=== PATIENT | male | born 1955 | race Caucasian/White ===

== ENCOUNTER 2018-04-06 18:52 | Inpatient (IN) | payer MEDICARE, OTHER ==
[2018-04-06] MEDS: Vancomycin HCl 500 MG in Sodium Chloride 0.9% 100 ML IVPB SCH (22:01)
[2018-04-06] MEDS: Vancomycin HCl 750 MG in Sodium Chloride 0.9% 250 ML 250 ML IVPB SCH (22:01)
[2018-04-07 05:24] LABS: #Basophils 0.1 thou/uL (0.0-0.2); #Eosinphils 0.2 thou/uL (0.0-0.7); #Lymphocytes 2.2 thou/uL (1.20-3.40); #Monocytes 0.5 thou/uL (0.11-0.59); %Eosinophils 2.1 % (0.0-10.0); %Lymphocytes 27.8 % (21.0-51.0); %Monocytes 6.1 % (0.0-10.0); %Neutrophils 62.9 % (42.0-75.0); Hemoglobin 9.2 g/dL (14.0-18.0); Mean Corpuscular HGB CONC 30.5 g/dL (32.0-36.0); Mean Corpuscular Hemoglobin 25.5 pg (27.0-31.0); Mean Corpuscular Volume 83.6 fL (78.0-98.0); Mean Platelet Volume 5.7 fL (7.4-10.4); Platelet Count 251 thou/uL (130-400); White Blood Cell (WBC) Count 7.9 thou/uL (4.8-10.8)
[2018-04-07 05:24] LABS: Bilirubin Negative (Negative); Blood, Urine Negative (Negative); Clarity Clear (Clear); Glucose, Urine (Dipstick) Negative (Negative); Leukocyte Negative (Negative); Nitrite Negative (Negative); Protein, Urine (Dipstick) Negative (Neg-Trace); Urobilinogen 0.2 mg/dL (0.2-1.0)
[2018-04-07 05:39] LABS: ALT (SGPT) 6 U/L (8-55); AST (SGOT) 14 U/L (5-34); Albumin 3.1 g/dL (3.4-4.8); Alkaline Phosphatase 57 U/L (40-150); Anion Gap 13 mmol/L (10-20); BUN (Urea Nitrogen) 6 mg/dL (8.4-25.7); Bilirubin, Total 0.2 mg/dL (0.2-1.2); Calc. Creatinine Clearance 181 mL/min (70-130); Calcium 9.2 mg/dL (7.8-10.44); Carbon Dioxide 25 mmol/L (23-31); Chloride 106 mmol/L (98-107); Estimated GFR-MDRD Greater than 90; Globulin 3.5 g/dL (2.4-3.5); Glucose 99 mg/dL (80-115); Potassium 3.6 mmol/L (3.5-5.1); Protein, Total 6.6 g/dL (5.8-8.1); Sodium 140 mmol/L (136-145)
[2018-04-07] MEDS ORDERED: Levothyroxine Sodium 100 MCG TAB ONE (05:41)
[2018-04-07] MEDS: Levothyroxine Sodium 100 MCG TAB PO SCH (05:45)
[2018-04-07] MEDS ORDERED: SITAGLIPTIN PHOSPHATE 25 MG PO SCH (09:00)
[2018-04-07] MEDS ORDERED: Non-Formulary Item 1 EACH (Ranitidine Hcl [Ranitidine Hcl] 150 MG) PO SCH (09:00)
[2018-04-07] MEDS ORDERED: Alogliptin 6.25 MG TAB PO ONE (09:11)
[2018-04-07] MEDS ORDERED: Finasteride 5 MG TAB ONE (09:12)
[2018-04-07] MEDS ORDERED: Famotidine 20 MG TAB ONE (09:12)
[2018-04-07] MEDS ORDERED: Docusate 100 MG CAP ONE (09:12)
[2018-04-07] MEDS ORDERED: Fish Oil 1,000 MG CAP ONE (09:13)
[2018-04-07] MEDS ORDERED: Folic Acid 1 MG TAB ONE (09:13)
[2018-04-07] MEDS ORDERED: Lantus 1000 UNITS/10 ML VIAL ONE (09:14)
[2018-04-07] MEDS ORDERED: Gabapentin 300 MG CAP ONE (09:14)
[2018-04-07] MEDS ORDERED: metroNIDAZOLE 500 MG TAB ONE (09:15)
[2018-04-07] MEDS ORDERED: Potassium Chloride 20 MEQ TAB ONE (09:16)
[2018-04-07] MEDS ORDERED: Sodium Chloride 0.9% 10 ML ONE ×2 (09:17)
[2018-04-07] MEDS ORDERED: Valproate Sodium 250 mg/5 ml UD Cup ONE (09:18)
[2018-04-07] MEDS: Valproate Sodium 250 mg/5 ml UD Cup PO SCH ×2 (09:22→21:35)
[2018-04-07] MEDS: Lantus 1000 UNITS/10 ML VIAL SC SCH (09:31)
[2018-04-07 09:32] LABS: Vancomycin, Trough 18.7 ug/mL
[2018-04-07] MEDS: Fish Oil 1,000 MG CAP PO SCH ×2 (09:32→21:34)
[2018-04-07] MEDS: Gabapentin 300 MG CAP PO SCH ×3 (09:32→21:35)
[2018-04-07] MEDS: metroNIDAZOLE 500 MG TAB PO SCH ×3 (09:32→21:35)
[2018-04-07] MEDS: Docusate 100 MG CAP PO SCH (09:32)
[2018-04-07] MEDS: Folic Acid 1 MG TAB PO SCH (09:32)
[2018-04-07] MEDS: Famotidine 20 MG TAB PO SCH (09:32)
[2018-04-07] MEDS: Alogliptin 6.25 MG TAB PO SCH (09:32)
[2018-04-07] MEDS: Finasteride 5 MG TAB PO SCH (09:32)
[2018-04-07] MEDS: Potassium Chloride 10 MEQ TAB PO SCH ×2 (09:36→21:35)
--- NOTE | 2018-04-07 10:30 | PRG ---
DATE OF SERVICE: 04/07/2018 SUBJECTIVE: The patient feels well, up in the bed, eating well. Alert, responsive to questions, alt jackie very difficult to understand his answers. Denies any pain or shortness of breath. OBJECTIVE: VITAL SIGNS: Shows blood pressure is 135/95, temperature is 98, and pulse 85. LUNGS: Clear. CARDIAC: Showed regular rhythm. ABDOMEN: Soft, nontender. GENITOURINARY: Scrotum is red, not indurated. EXTREMITIES: Left ischial decubitus is covered as his left heel injury. ASSESSMENT: 1. 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 2. Diabetes, controlled to goal. 3. Hypertension, controlled to goal. 4. Seizure disorder, stable. 5. Cognitive deficit, stable. 6. Urinary tract infection with E. coli sepsis and bacteremia with Cortes catheter still in place and we will discuss a change or removal of the Cortes with urologist, Dr. Lyons next week.
[2018-04-07] MEDS: Vancomycin HCl 750 MG in Sodium Chloride 0.9% 250 ML 250 ML IVPB SCH ×2 (10:56→21:33)
[2018-04-07] MEDS: Vancomycin HCl 500 MG in Sodium Chloride 0.9% 100 ML IVPB SCH ×2 (10:57→21:34)
--- NOTE | 2018-04-07 14:17 | HP ---
DATE OF ADMISSION: 04/06/2018 HISTORY OF PRESENT ILLNESS: The patient is an unfortunate 62-year-old white male living in [facility] for an unknown period of time secondary to cognitive deficits with difficulty moving his legs and with his speech, but apparently recognition of commands, who has been admitted to [facility] several times in the last year, once for pneumonia, most recently and earlier this month for an episode of urinary tract infection with sepsis with Escherichia coli and bacteremia. However, he was found at that time also to have stage IV decubitus left sacrum which was found to be positive on bon e scan for osteomyelitis of the left atrium and subsequently required debridement. He has been start ed on vancomycin, Rocephin and Flagyl for broad spectrum coverage. There is no culture was done of t he bone and are treating for possible MRSA as well as E. coli that is in the blood and anaerobes. He is doing very well with no nausea and vomiting, fever, chills, shortness of breath, confusion or kimberly st pain. The patient, as mentioned above, is unable to verbalize very well, but appears to be alert. ALLERGIES: He is allergic to METFORMIN. MEDICATIONS: Rocephin 2 grams IV daily, vancomycin 1.25 grams IV twice daily and Flagyl 500 mg 3 danny es daily all until 05/04, he is also on finasteride 5 mg daily, folic acid 1 mg daily, Neurontin 300 three times daily, Lantus 20 units daily, Synthroid 100 mcg daily, Klor-Con 20 mEq twice daily, Crest or 10 mg daily, tamsulosin 0.8 mg nightly, famotidine 20 mg daily, Docusate 100 mg daily. PAST MEDICAL HISTORY: Obtained from the old chart and shows that he has a history of above-mentioned hypertension, diabetes, cognitive deficits with possible mental retardation. FAMILY HISTORY: Unavailable. SOCIAL HISTORY: [facility], an unknown period of time. He is a nonsmoker, nondrinker. REVIEW OF SYSTEMS: Essentially noncontributory as the patient is unable to give appropriate answers. PHYSICAL EXAMINATION: GENERAL: Patient is a middle-aged white male lying in bed in no acute distress, oriented to person o nly. VITAL SIGNS: Blood pressure 135/95, temperature is 98, pulse 85, respirations 20, O2 sats 95% on keesha m air. HEENT: Pupils show the left eye is opacified. Right eye appears to be within normal limits. Sclera e are anicteric, Conjunctivae pale. Oral mucous membranes well hydrated. NECK: Supple. There are no nodes or masses. LUNGS: Clear. CARDIAC: Regular rhythm. No gallops or murmurs. ABDOMEN: Soft, nontender with no masses or organomegaly. SKIN/EXTREMITIES: Show left ischial decubitus left heel injury. The ischial decubitus had wound VAC in place. GENITOURINARY: Shows red, swollen scrotum with no induration or tenderness. Cortes catheter in place . NEUROLOGIC: The patient is unable to move his legs at all. Has minimal spastic movement in his hand s and has no sensation to pinprick below the waist. LABORATORY AND X-RAY FINDINGS: Shows a white count 7900, hematocrit 30, hemoglobin 9.2. Sodium 140, potassium 3.6, chloride 106, bicarbonate 25, BUN 6, creatinine 0.5, calcium 9.2, total bilirubin 0.2 , AST 14, ALT 6, albumin 3.1, globulin 3.5. ASSESSMENT AND PLAN: 1. 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 2. Sacral and left ischial decubitus stage 4 with osteomyelitis on IV Rocephin and vancomycin and or al Flagyl until 05/04 with vancomycin levels to be monitored by pharmacy. 3. History of recent Escherichia coli urinary tract infection with Cortes catheter still in place, m ost likely due to need to keep a decubitus clean, but will discuss with Dr. Lyons keep catheter in p page this time. Change out weekly if needed. 4. Type 2 diabetes, controlled to goal. We will continue Accu-Cheks and home insulin. 5. Seizure disorder. No evidence of recurrence on gabapentin. 6. Possible benign prostatic hypertrophy, on finasteride and tamsulosin. We will discuss with Dr. Hi tuttle. 7. Hypothyroidism, stable. PLAN: 1. Continue the above-mentioned vancomycin, Flagyl, and Rocephin until 05/04. 2. Continue wound care with wound VAC. 3. I discussed Cortes catheter drainage with Dr. Eloy and replace as needed or discontinue if possi ble. 4. Continue nutritional support and skin care support with deep tissue injury of left heel be monito red with pressure reduction. 5. Diabetes, controlled to goal. Continue with Accu-Chek and Homans'.
[2018-04-07] MEDS ORDERED: cefTRIAXone\\ROCEPHIN 2 GM VIAL IVPB SCH (15:00)
[2018-04-07] MEDS: cefTRIAXone\\ROCEPHIN 2 GM in Sodium Chloride 0.9% 100 ML IVPB SCH (15:11)
[2018-04-07] MEDS: Rosuvastatin 10 MG TAB PO SCH (21:35)
[2018-04-07] MEDS: Tamsulosin HCl 0.4 MG CAP PO SCH (21:35)
[2018-04-08] MEDS: Levothyroxine Sodium 100 MCG TAB PO SCH (06:49)
[2018-04-08] MEDS: Finasteride 5 MG TAB PO SCH (09:23)
[2018-04-08] MEDS: Alogliptin 6.25 MG TAB PO SCH (09:23)
[2018-04-08] MEDS: Gabapentin 300 MG CAP PO SCH ×3 (09:23→20:45)
[2018-04-08] MEDS: Famotidine 20 MG TAB PO SCH (09:23)
[2018-04-08] MEDS: metroNIDAZOLE 500 MG TAB PO SCH ×3 (09:23→20:45)
[2018-04-08] MEDS: Valproate Sodium 250 mg/5 ml UD Cup PO SCH ×2 (09:23→20:44)
[2018-04-08] MEDS: Potassium Chloride 10 MEQ TAB PO SCH ×2 (09:23→20:44)
[2018-04-08] MEDS: Docusate 100 MG CAP PO SCH (09:23)
[2018-04-08] MEDS: Folic Acid 1 MG TAB PO SCH (09:23)
[2018-04-08] MEDS: Fish Oil 1,000 MG CAP PO SCH ×2 (09:23→20:42)
[2018-04-08] MEDS: Vancomycin HCl 750 MG in Sodium Chloride 0.9% 250 ML 250 ML IVPB SCH ×2 (09:24→21:00)
[2018-04-08] MEDS: Lantus 1000 UNITS/10 ML VIAL SC SCH (09:24)
[2018-04-08] MEDS: Vancomycin HCl 500 MG in Sodium Chloride 0.9% 100 ML IVPB SCH ×2 (09:24→21:00)
[2018-04-08] MEDS: cefTRIAXone\\ROCEPHIN 2 GM in Sodium Chloride 0.9% 100 ML IVPB SCH (15:14)
[2018-04-08] MEDS: Rosuvastatin 10 MG TAB PO SCH (20:45)
[2018-04-08] MEDS: Tamsulosin HCl 0.4 MG CAP PO SCH (20:45)
[2018-04-09] MEDS: Levothyroxine Sodium 100 MCG TAB PO SCH (06:25)
--- NOTE | 2018-04-09 08:51 | PRG ---
DATE OF SERVICE: 04/08/2018 SUBJECTIVE: The patient is in the bed, no complaints, eating well, responding to nursing care. OBJECTIVE: Wound VAC has been placed is functioning. VITAL SIGNS: Temperature is 98.5, pulse 89, respirations 22, O2 sats 96% on room air, blood pressure 129/72. Vancomycin trough level is 18.7. ABDOMEN: Soft, nontender. LUNGS: Lungs are clear. CARDIAC: Shows regular rhythm. SKIN AND EXTREMITIES: Show trace edema. : Cortes catheter is in place. ASSESSMENT: 1. Stage IV left ischial decubitus with osteomyelitis with wound VAC in place on vancomycin, Rocephi n and Flagyl until 05/04/2018. 2. History of Escherichia coli urinary tract infection. Cortes catheter in place and will discuss we ekly change with Dr. Lyons. 3. Type 2 diabetes, controlled to goal. 4. Seizure disorder with no recurrence on gabapentin. 5. Hypothyroidism, stable. PLAN: 1. Continue vancomycin, Flagyl, and Rocephin with vancomycin levels to be titrated by Pharmacy until 05/04/2018. Continue wound care, wound VAC to be followed by physical therapy. 2. Continue Cortes catheter and replace as needed and discuss difficulty replacement with Dr. Lyons. 3. Deep tissue injury of heels with some wound protection. 4. Diabetes, controlled to goal.
[2018-04-09] MEDS: Fish Oil 1,000 MG CAP PO SCH ×2 (08:54→21:50)
[2018-04-09] MEDS: Docusate 100 MG CAP PO SCH (08:55)
[2018-04-09] MEDS: metroNIDAZOLE 500 MG TAB PO SCH ×3 (08:55→21:51)
[2018-04-09] MEDS: Valproate Sodium 250 mg/5 ml UD Cup PO SCH ×2 (08:55→21:50)
[2018-04-09] MEDS: Gabapentin 300 MG CAP PO SCH ×3 (08:56→21:50)
[2018-04-09] MEDS: Potassium Chloride 10 MEQ TAB PO SCH ×2 (08:57→21:50)
--- NOTE | 2018-04-09 08:57 | PRG ---
DATE OF SERVICE: 04/09/2018 SUBJECTIVE: The patient feels well, but is slightly less responsive today, more lethargic, but did e at breakfast. OBJECTIVE: VITAL SIGNS: Vital signs show him to have a blood pressure of 122/76, temperature 98, pulse 89, resp irations 20, O2 sats 97% on room air. LUNGS: Lungs are clear. CARDIAC: Shows regular rhythm. ABDOMEN: Soft, nontender. SKIN AND EXTREMITIES: Showed trace edema. : Cortes catheter in place. ASSESSMENT: 1. Osteomyelitis of the left ischium on vancomycin, Flagyl and Rocephin until 05/04/2018. 2. Type 2 diabetes, controlled to goal. 3. Hypertension, controlled to goal. 4. Cognitive deficits and paraplegia of unknown etiology. After discussion with sister, still unsur e, stable. PLAN: 1. Continue wound care followed by physical therapy. 2. Continue IV antibiotics with vancomycin trough monitoring by Pharmacy. 3. Continue Accu-Cheks to monitor and titrate and control diabetes.
[2018-04-09] MEDS: Finasteride 5 MG TAB PO SCH (09:00)
[2018-04-09] MEDS: Alogliptin 6.25 MG TAB PO SCH (09:00)
[2018-04-09] MEDS: Folic Acid 1 MG TAB PO SCH (09:01)
[2018-04-09] MEDS: Famotidine 20 MG TAB PO SCH (09:01)
[2018-04-09] MEDS: Lantus 1000 UNITS/10 ML VIAL SC SCH (09:13)
[2018-04-09] MEDS: Vancomycin HCl 500 MG in Sodium Chloride 0.9% 100 ML IVPB SCH ×2 (10:50→21:52)
[2018-04-09] MEDS: Vancomycin HCl 750 MG in Sodium Chloride 0.9% 250 ML 250 ML IVPB SCH ×2 (10:53→21:51)
[2018-04-09] MEDS: cefTRIAXone\\ROCEPHIN 2 GM in Sodium Chloride 0.9% 100 ML IVPB SCH (15:39)
[2018-04-09] MEDS: Rosuvastatin 10 MG TAB PO SCH (21:50)
[2018-04-09] MEDS: Tamsulosin HCl 0.4 MG CAP PO SCH (21:51)
[2018-04-10] MEDS: Levothyroxine Sodium 100 MCG TAB PO SCH (05:17)
[2018-04-10] MEDS: Fish Oil 1,000 MG CAP PO SCH ×2 (08:56→21:36)
[2018-04-10] MEDS: Docusate 100 MG CAP PO SCH (08:57)
[2018-04-10] MEDS: Famotidine 20 MG TAB PO SCH (08:57)
[2018-04-10] MEDS: Folic Acid 1 MG TAB PO SCH (08:57)
[2018-04-10] MEDS: Gabapentin 300 MG CAP PO SCH ×3 (08:57→21:36)
[2018-04-10] MEDS: Finasteride 5 MG TAB PO SCH (08:57)
[2018-04-10] MEDS: Valproate Sodium 250 mg/5 ml UD Cup PO SCH ×2 (08:57→21:34)
[2018-04-10] MEDS: Alogliptin 6.25 MG TAB PO SCH (08:58)
[2018-04-10] MEDS: metroNIDAZOLE 500 MG TAB PO SCH ×3 (08:58→21:36)
[2018-04-10] MEDS: Potassium Chloride 10 MEQ TAB PO SCH ×2 (08:58→21:36)
[2018-04-10] MEDS: Lantus 1000 UNITS/10 ML VIAL SC SCH (08:59)
[2018-04-10 09:33] LABS: Vancomycin, Trough 17.3 ug/mL
[2018-04-10] MEDS: Vancomycin HCl 500 MG in Sodium Chloride 0.9% 100 ML IVPB SCH ×2 (09:59→21:33)
[2018-04-10] MEDS: Vancomycin HCl 750 MG in Sodium Chloride 0.9% 250 ML 250 ML IVPB SCH ×2 (10:00→21:33)
[2018-04-10] MEDS: cefTRIAXone\\ROCEPHIN 2 GM in Sodium Chloride 0.9% 100 ML IVPB SCH (14:53)
[2018-04-10] MEDS: Rosuvastatin 10 MG TAB PO SCH (21:36)
[2018-04-10] MEDS: Tamsulosin HCl 0.4 MG CAP PO SCH (21:36)
[2018-04-11] MEDS: Levothyroxine Sodium 100 MCG TAB PO SCH (05:31)
[2018-04-11] MEDS: Vancomycin HCl 500 MG in Sodium Chloride 0.9% 100 ML IVPB SCH ×2 (09:19→20:52)
[2018-04-11] MEDS: Vancomycin HCl 750 MG in Sodium Chloride 0.9% 250 ML 250 ML IVPB SCH ×2 (09:19→20:54)
[2018-04-11] MEDS: Finasteride 5 MG TAB PO SCH (09:22)
[2018-04-11] MEDS: Gabapentin 300 MG CAP PO SCH ×3 (09:22→20:49)
[2018-04-11] MEDS: Valproate Sodium 250 mg/5 ml UD Cup PO SCH ×2 (09:22→20:51)
[2018-04-11] MEDS: Alogliptin 6.25 MG TAB PO SCH (09:22)
[2018-04-11] MEDS: Potassium Chloride 10 MEQ TAB PO SCH ×2 (09:22→20:49)
[2018-04-11] MEDS: Docusate 100 MG CAP PO SCH (09:22)
[2018-04-11] MEDS: Fish Oil 1,000 MG CAP PO SCH ×2 (09:22→20:49)
[2018-04-11] MEDS: Famotidine 20 MG TAB PO SCH (09:22)
[2018-04-11] MEDS: metroNIDAZOLE 500 MG TAB PO SCH ×3 (09:22→20:49)
[2018-04-11] MEDS: Folic Acid 1 MG TAB PO SCH (09:23)
[2018-04-11] MEDS: Lantus 1000 UNITS/10 ML VIAL SC SCH (09:23)
--- NOTE | 2018-04-11 10:06 | PRG ---
DATE OF SERVICE: 04/10/2018 SUBJECTIVE: The patient feels well, lying in the bed, awake and alert, no complaints, but obviously the patient has some mental disability and cognitive deficits and functions at the level of an infant . PHYSICAL EXAMINATION: VITAL SIGNS: Vital signs showed a temperature of 98.1, pulse 82, respirations 18, O2 sat is 99% on r oom air, blood pressure 119.7. LUNGS: Lungs are clear. CARDIAC: Cardiac examination showed regular rhythm. : Cortes catheter is in place and appears to be somewhat of the urethra erosion, but recent urologi lior consult was not concerned so we will continue catheter in place. Wound VAC is in place, functioning well. Most recent vancomycin trough 17.3. Accu-Cheks are stable at 104-153. ASSESSMENT: 1. Resolving stage IV decubitus with osteomyelitis of left ischium on IV vancomycin, Rocephin and or al Flagyl 2. Type 2 diabetes, insulin controlled. 3. Mental disability and cognitive deficits, stable. 4. Recurrent urinary tract infection and incontinence with Cortes catheter in place, being changed ev agus week in order to decrease infection as a possibility, but maintain integrity of wound VAC. PLAN: CBC, comp metabolic sed rate, CRP in the a.m.
[2018-04-11 11:00] LABS: ALT (SGPT) 6 U/L (8-55); AST (SGOT) 14 U/L (5-34); Albumin 3.3 g/dL (3.4-4.8); Alkaline Phosphatase 60 U/L (40-150); Anion Gap 13 mmol/L (10-20); BUN (Urea Nitrogen) 7 mg/dL (8.4-25.7); Bilirubin, Total 0.2 mg/dL (0.2-1.2); CRP (Inflammatory) 0.86 mg/dL (= or < 0.5); Calc. Creatinine Clearance 151 mL/min (70-130); Calcium 9.2 mg/dL (7.8-10.44); Carbon Dioxide 24 mmol/L (23-31); Chloride 102 mmol/L (98-107); Estimated GFR-MDRD Greater than 90; Globulin 3.4 g/dL (2.4-3.5); Glucose 216 mg/dL (80-115); Potassium 3.8 mmol/L (3.5-5.1); Protein, Total 6.7 g/dL (5.8-8.1); Sodium 135 mmol/L (136-145)
[2018-04-11 11:33] LABS: #Basophils 0.1 thou/uL (0.0-0.2); #Eosinphils 0.2 thou/uL (0.0-0.7); #Lymphocytes 2.3 thou/uL (1.20-3.40); #Monocytes 0.5 thou/uL (0.11-0.59); #Neutrophils 4.6 thou/uL (1.40-6.50); %Basophils 1.2 % (0.0-1.0); %Eosinophils 2.3 % (0.0-10.0); %Lymphocytes 29.8 % (21.0-51.0); %Neutrophils 59.7 % (42.0-75.0); Hemoglobin 9.8 g/dL (14.0-18.0); Mean Corpuscular HGB CONC 31.2 g/dL (32.0-36.0); Mean Corpuscular Hemoglobin 26.1 pg (27.0-31.0); Mean Corpuscular Volume 83.5 fL (78.0-98.0); Mean Platelet Volume 5.8 fL (7.4-10.4); Platelet Count 243 thou/uL (130-400); Red Blood Cell (RBC) Count 3.77 mill/uL (4.70-6.10); White Blood Cell (WBC) Count 7.8 thou/uL (4.8-10.8)
[2018-04-11] MEDS: cefTRIAXone\\ROCEPHIN 2 GM in Sodium Chloride 0.9% 100 ML IVPB SCH (15:32)
[2018-04-11] MEDS: Rosuvastatin 10 MG TAB PO SCH (20:49)
[2018-04-11] MEDS: Tamsulosin HCl 0.4 MG CAP PO SCH (20:50)
[2018-04-12] MEDS: Levothyroxine Sodium 100 MCG TAB PO SCH (06:10)
--- NOTE | 2018-04-12 06:11 | PRG ---
DATE OF SERVICE: 04/11/2018 SUBJECTIVE: The patient feels the same. Awake, alert, in no distress, but only minimally responsive to questions appropriately, although does respond. OBJECTIVE: VITAL SIGNS: Show temperature 98, pulse 86, respirations 18, O2 sats 92% on room air, blood pressure 137/77. GENITOURINARY: Wound VAC in place, functioning well. Cortes catheter in place, functioning well. Ur ological consult from Dr. Lyons from previous admission evaluated and found that the patient appears to be stable. No evidence of erosion at that time and at this time shows no significant irritation. LABORATORY DATA: Sodium 135, potassium 3.8, chloride 102, bicarbonate 24, BUN 7, creatinine 0.6. Ac cu-Cheks 130-162, ALT 6, AST 14. C-reactive protein slightly elevated at 0.86. Sed rate; however, s ignificantly elevated at 113. White count 7800, hematocrit 31, hemoglobin 9.8. ASSESSMENT: 1. Resolving osteomyelitis of left ischium with wound VAC in place on IV vancomycin, Rocephin and Fl agyl. 2. Severe cognitive deficits, unknown etiology, but with no acute change or distress. 3. No evidence of urinary retention, but with incontinence requiring Cortes catheter to maintain inte grity of wound VAC with no evidence of recurrent infection. 4. Type 2 diabetes, controlled to goal. PLAN: 1. Continue IV vancomycin, Rocephin, and oral Flagyl. 2. Continue Accu-Cheks to monitor and titrate and control diabetes. 3. Continue perineal care. 4. Continue to monitor nutrition closely. 5. Continue wound VAC and care of decubitus with physical therapy.
[2018-04-12] MEDS: Vancomycin HCl 750 MG in Sodium Chloride 0.9% 250 ML 250 ML IVPB SCH ×2 (09:38→21:24)
[2018-04-12] MEDS: Vancomycin HCl 500 MG in Sodium Chloride 0.9% 100 ML IVPB SCH ×2 (09:38→21:24)
[2018-04-12] MEDS: Lantus 1000 UNITS/10 ML VIAL SC SCH (09:39)
[2018-04-12] MEDS: Valproate Sodium 250 mg/5 ml UD Cup PO SCH ×2 (09:39→21:25)
[2018-04-12] MEDS: Potassium Chloride 10 MEQ TAB PO SCH ×2 (09:40→21:25)
[2018-04-12] MEDS: Docusate 100 MG CAP PO SCH (09:40)
[2018-04-12] MEDS: metroNIDAZOLE 500 MG TAB PO SCH ×3 (09:40→21:25)
[2018-04-12] MEDS: Folic Acid 1 MG TAB PO SCH (09:40)
[2018-04-12] MEDS: Alogliptin 6.25 MG TAB PO SCH (09:40)
[2018-04-12] MEDS: Famotidine 20 MG TAB PO SCH (09:40)
[2018-04-12] MEDS: Finasteride 5 MG TAB PO SCH (09:40)
[2018-04-12] MEDS: Gabapentin 300 MG CAP PO SCH ×4 (09:40→22:11)
[2018-04-12] MEDS: Fish Oil 1,000 MG CAP PO SCH ×2 (09:40→21:25)
[2018-04-12] MEDS ORDERED: Sodium Chloride 0.9% 250 ML 250 ML ONE (09:50)
[2018-04-12] MEDS: cefTRIAXone\\ROCEPHIN 2 GM in Sodium Chloride 0.9% 100 ML IVPB SCH (14:06)
[2018-04-12] MEDS: Tamsulosin HCl 0.4 MG CAP PO SCH (21:25)
[2018-04-12] MEDS: Rosuvastatin 10 MG TAB PO SCH (21:26)
[2018-04-13] MEDS: Levothyroxine Sodium 100 MCG TAB PO SCH (06:01)
[2018-04-13] MEDS: Vancomycin HCl 500 MG in Sodium Chloride 0.9% 100 ML IVPB SCH ×2 (09:22→22:40)
[2018-04-13] MEDS: Vancomycin HCl 750 MG in Sodium Chloride 0.9% 250 ML 250 ML IVPB SCH ×2 (09:22→22:40)
[2018-04-13] MEDS: Lantus 1000 UNITS/10 ML VIAL SC SCH (09:22)
[2018-04-13] MEDS: Potassium Chloride 10 MEQ TAB PO SCH ×2 (09:23→22:39)
[2018-04-13] MEDS: Alogliptin 6.25 MG TAB PO SCH ×2 (09:23→09:50)
[2018-04-13] MEDS: Gabapentin 300 MG CAP PO SCH ×3 (09:23→22:40)
[2018-04-13] MEDS: Folic Acid 1 MG TAB PO SCH (09:23)
[2018-04-13] MEDS: Valproate Sodium 250 mg/5 ml UD Cup PO SCH ×2 (09:23→22:39)
[2018-04-13] MEDS: Finasteride 5 MG TAB PO SCH (09:23)
[2018-04-13] MEDS: Fish Oil 1,000 MG CAP PO SCH ×2 (09:23→22:40)
[2018-04-13] MEDS: metroNIDAZOLE 500 MG TAB PO SCH ×3 (09:23→22:39)
[2018-04-13] MEDS: Famotidine 20 MG TAB PO SCH (09:23)
[2018-04-13] MEDS: Docusate 100 MG CAP PO SCH (09:23)
--- NOTE | 2018-04-13 09:51 | PRG ---
DATE OF SERVICE: 04/13/2018 SUBJECTIVE: The patient feels well, lying in bed in no distress, no complaints. Eating well. No na usea and vomiting, fever or chills. OBJECTIVE: VITAL SIGNS: Temperature is 98, pulse 90, respirations 20, O2 sats 94%, blood pressure 138/84. LUNGS: Clear. CARDIAC: Examination showed regular rhythm. ABDOMEN: Soft and nontender. SKIN AND EXTREMITIES: Shows wound VAC on left ischium functioning well. The patient is having some diarrhea. ASSESSMENT: 1. Resolving stage IV decubitus, osteomyelitis of left ischium on wound VAC and IV vancomycin and Ro cephin with most recent vancomycin level therapeutic at 17.3 being followed by pharmacy. 2. Type 2 diabetes with slight elevation in the afternoon on Lantus and on Januvia. 3. Cognitive deficits and mental disability, unknown etiology, appears to be stable, alert, eating, in no distress. 4. Chronic Cortes catheterization in order to maintain integrity a wound VAC. PLAN: 1. Continue IV vancomycin, Rocephin, and oral Flagyl until 05/04/2018. 2. Continue to monitor vancomycin levels per pharmacy. 3. Continue Cortes catheterization. Monitor for signs of recurrent infections. He did have urosepsi s on admission to [facility]. 4. Continue to monitor cognitive deficits, but appears to be eating well and cooperating well with t herapy.
--- NOTE | 2018-04-13 10:12 | PRG ---
DATE OF SERVICE: 04/13/2018 SUBJECTIVE: The patient is an unfortunate 62-year-old white male with history of cognitive deficits and mental disability, living in [facility] who has developed stage IV decubitus of the left isch ium as well as osteomyelitis. He is now on IV vancomycin, Rocephin and oral Flagyl until 05/04 with a wound VAC treatment of the decubitus. He is tolerating it well with no complaints. He is eating w ell. He is having no nausea and vomiting. He is still having occasional loose stools, but is on sto ol softener and has had a negative evaluation for Clostridium difficile. OBJECTIVE: GENERAL: His Accu-Cheks are still running slightly elevated in the afternoon up to 240 in the aftern oon, but fairly close to normal at 139-146 in the morning on Lantus. He is on Levemir and Januvia. VITAL SIGNS: Show blood pressure of 164/88, temperature 98, pulse 85, respirations 20, O2 sats 96% o n room air. LUNGS: Clear. CARDIAC: Shows regular rhythm. No gallops or murmurs. ABDOMEN: Soft and nontender. No masses or organomegaly. SKIN AND EXTREMITIES: Display wound VAC in place on the left hip. GENITOURINARY: Cortes catheter in place. ASSESSMENT AND PLAN: 1. Resolving stage IV decubitus and osteomyelitis on IV vancomycin, Rocephin and Flagyl until 05/04. 2. Stable nutrition, eating well. 3. No evidence of retention, but requiring Cortes catheter because of ability to maintain integrity o f wound VAC. 4. Type 2 diabetes with only fair control, but recently increased Januvia to 25 mg. We will continu e Levemir and monitor closely. 5. Soft stools, negative C. diff. We will start on probiotic.
[2018-04-13] MEDS: cefTRIAXone\\ROCEPHIN 2 GM in Sodium Chloride 0.9% 100 ML IVPB SCH (14:53)
[2018-04-13] MEDS: Rosuvastatin 10 MG TAB PO SCH (22:39)
[2018-04-13] MEDS: Tamsulosin HCl 0.4 MG CAP PO SCH (22:39)
[2018-04-14] MEDS: Levothyroxine Sodium 100 MCG TAB PO SCH (05:30)
[2018-04-14] MEDS ORDERED: Saccharomyces boulardii 250 MG CAP PO SCH (09:00)
[2018-04-14] MEDS: Alogliptin 6.25 MG TAB PO SCH (09:08)
[2018-04-14] MEDS: Saccharomyces boulardii 250 MG CAP PO SCH (09:08)
[2018-04-14] MEDS: Valproate Sodium 250 mg/5 ml UD Cup PO SCH ×2 (09:08→21:42)
[2018-04-14] MEDS: Fish Oil 1,000 MG CAP PO SCH ×2 (09:08→21:43)
[2018-04-14] MEDS: metroNIDAZOLE 500 MG TAB PO SCH ×3 (09:08→21:44)
[2018-04-14] MEDS: Potassium Chloride 10 MEQ TAB PO SCH ×2 (09:08→21:43)
[2018-04-14] MEDS: Finasteride 5 MG TAB PO SCH (09:08)
[2018-04-14] MEDS: Folic Acid 1 MG TAB PO SCH (09:09)
[2018-04-14] MEDS: Gabapentin 300 MG CAP PO SCH ×3 (09:09→21:43)
[2018-04-14] MEDS: Famotidine 20 MG TAB PO SCH (09:09)
[2018-04-14 09:20] LABS: Vancomycin, Trough 17.7 ug/mL
[2018-04-14] MEDS: Lantus 1000 UNITS/10 ML VIAL SC SCH (09:27)
[2018-04-14] MEDS: Vancomycin HCl 500 MG in Sodium Chloride 0.9% 100 ML IVPB SCH ×2 (09:28→21:42)
[2018-04-14] MEDS: Vancomycin HCl 750 MG in Sodium Chloride 0.9% 250 ML 250 ML IVPB SCH ×2 (09:28→21:43)
[2018-04-14] MEDS: cefTRIAXone\\ROCEPHIN 2 GM in Sodium Chloride 0.9% 100 ML IVPB SCH (14:50)
[2018-04-14] MEDS: Rosuvastatin 10 MG TAB PO SCH (21:43)
[2018-04-14] MEDS: Tamsulosin HCl 0.4 MG CAP PO SCH (21:44)
[2018-04-15] MEDS: Levothyroxine Sodium 100 MCG TAB PO SCH (06:26)
[2018-04-15] MEDS: Valproate Sodium 250 mg/5 ml UD Cup PO SCH ×2 (08:23→21:19)
[2018-04-15] MEDS: Alogliptin 6.25 MG TAB PO SCH (08:23)
[2018-04-15] MEDS: Potassium Chloride 10 MEQ TAB PO SCH ×2 (08:23→21:18)
[2018-04-15] MEDS: metroNIDAZOLE 500 MG TAB PO SCH ×3 (08:23→21:18)
[2018-04-15] MEDS: Famotidine 20 MG TAB PO SCH (08:24)
[2018-04-15] MEDS: Saccharomyces boulardii 250 MG CAP PO SCH (08:24)
[2018-04-15] MEDS: Gabapentin 300 MG CAP PO SCH ×3 (08:24→21:18)
[2018-04-15] MEDS: Folic Acid 1 MG TAB PO SCH (08:24)
[2018-04-15] MEDS: Fish Oil 1,000 MG CAP PO SCH ×2 (08:24→21:18)
[2018-04-15] MEDS: Finasteride 5 MG TAB PO SCH (08:24)
[2018-04-15] MEDS: Lantus 1000 UNITS/10 ML VIAL SC SCH (08:39)
[2018-04-15] MEDS: Vancomycin HCl 750 MG in Sodium Chloride 0.9% 250 ML 250 ML IVPB SCH ×2 (09:28→21:16)
[2018-04-15] MEDS: Vancomycin HCl 500 MG in Sodium Chloride 0.9% 100 ML IVPB SCH ×2 (09:29→21:15)
[2018-04-15] MEDS: cefTRIAXone\\ROCEPHIN 2 GM in Sodium Chloride 0.9% 100 ML IVPB SCH (14:55)
--- NOTE | 2018-04-15 16:38 | PRG ---
DATE OF SERVICE: 04/15/2018. SUBJECTIVE: The patient lying in bed, resting well with no complaints. Has cognitive deficits, but appears to be in no distress, eating well. OBJECTIVE: Blood pressure is 134/87, temperature 98, pulse 87, respirations 18, O2 sat 93% on room a ir. LUNGS: Clear. CARDIAC: Shows regular rhythm. ABDOMEN: Soft and nontender. PELVIC: Wound VAC is in place on the left ischium. LABORATORIES: Show Accu-Cheks range from 130-180. ASSESSMENT: 1. Resolving left ischial osteomyelitis, stage IV decubitus with wound VAC on vancomycin, Rocephin, and oral Flagyl until 05/04/2018. 2. Stable cognitive deficits long-term with no difficulty swallowing. 3. No evidence of urinary retention, but incontinence requiring Cortes catheter to maintain integrity of wound VAC. 4. Type 2 diabetes, controlled (02:00). 5. Stable nutrition. PLAN: 1. Continue IV vancomycin, Rocephin, and oral Flagyl until 05/04/2018. 2. Continue to monitor nutrition. 3. Continue Cortes catheter to maintain integrity of wound VAC. 4. Continue wound VAC followed by physical therapy. 5. Continue Januvia 25 mg daily and Levemir for control of diabetes.
[2018-04-15] MEDS: Tamsulosin HCl 0.4 MG CAP PO SCH (21:18)
[2018-04-15] MEDS: Rosuvastatin 10 MG TAB PO SCH (21:19)
[2018-04-16] MEDS: Levothyroxine Sodium 100 MCG TAB PO SCH (05:34)
[2018-04-16] MEDS: Vancomycin HCl 750 MG in Sodium Chloride 0.9% 250 ML 250 ML IVPB SCH ×2 (09:51→21:09)
[2018-04-16] MEDS: metroNIDAZOLE 500 MG TAB PO SCH ×3 (09:52→21:08)
[2018-04-16] MEDS: Valproate Sodium 250 mg/5 ml UD Cup PO SCH ×2 (09:52→21:07)
[2018-04-16] MEDS: Saccharomyces boulardii 250 MG CAP PO SCH (09:52)
[2018-04-16] MEDS: Alogliptin 6.25 MG TAB PO SCH (09:52)
[2018-04-16] MEDS: Vancomycin HCl 500 MG in Sodium Chloride 0.9% 100 ML IVPB SCH ×2 (09:52→21:08)
[2018-04-16] MEDS: Potassium Chloride 10 MEQ TAB PO SCH (09:52)
[2018-04-16] MEDS: Folic Acid 1 MG TAB PO SCH (09:53)
[2018-04-16] MEDS: Famotidine 20 MG TAB PO SCH (09:53)
[2018-04-16] MEDS: Gabapentin 300 MG CAP PO SCH ×3 (09:53→21:07)
[2018-04-16] MEDS: Fish Oil 1,000 MG CAP PO SCH ×2 (09:53→21:08)
[2018-04-16] MEDS: Finasteride 5 MG TAB PO SCH (09:53)
[2018-04-16] MEDS: Lantus 1000 UNITS/10 ML VIAL SC SCH (09:53)
[2018-04-16] MEDS: cefTRIAXone\\ROCEPHIN 2 GM in Sodium Chloride 0.9% 100 ML IVPB SCH (14:53)
[2018-04-16] MEDS ORDERED: Lantus 1000 UNITS/10 ML VIAL SC SCH (17:04)
[2018-04-16] MEDS: Potassium Chloride 20 MEQ TAB PO SCH (17:15)
--- NOTE | 2018-04-16 17:45 | PRG ---
DATE OF SERVICE: 04/16/2018 SUBJECTIVE: The patient lying in the bed, resting. No complaints, has been eating well. No nausea and vomiting. Denies any pain, shortness of breath. LABORATORY DATA: Shows Accu-Cheks range from 123 in the morning up to 211, 223 in the afternoon on 2 0 units of Lantus in the morning. OBJECTIVE: VITAL SIGNS: Show blood pressure of 130/86, temperature 98, pulse 100, respirations 20, O2 sats 95% on room air. LUNGS: Clear. CARDIAC: Shows regular rhythm. ABDOMEN: Soft and nontender. Wound VAC is in place. ASSESSMENT: 1. Resolving left facial ischial osteomyelitis, stage IV decubitus. 2. Type 2 diabetes with only fair control and will increase Lantus to 22 units every morning. 3. Hypothyroidism, stable. 4. Cognitive deficits and mental retardation, stable. PLAN: 1. Continue IV Ancef, vancomycin and oral Flagyl until 05/04. Continue wound VAC. 2. Increase Lantus 22 units every morning. 3. Continue tamsulosin for BPH and Cortes care to prevent contamination of wound VAC.
[2018-04-16] MEDS: Rosuvastatin 10 MG TAB PO SCH (21:07)
[2018-04-16] MEDS: Tamsulosin HCl 0.4 MG CAP PO SCH (21:08)
[2018-04-17] MEDS: Levothyroxine Sodium 100 MCG TAB PO SCH (05:21)
[2018-04-17] MEDS: Potassium Chloride 20 MEQ TAB PO SCH ×2 (08:55→17:03)
[2018-04-17] MEDS: Gabapentin 300 MG CAP PO SCH ×3 (09:02→20:56)
[2018-04-17] MEDS: metroNIDAZOLE 500 MG TAB PO SCH ×3 (09:02→20:56)
[2018-04-17] MEDS: Valproate Sodium 250 mg/5 ml UD Cup PO SCH ×2 (09:02→20:56)
[2018-04-17] MEDS: Folic Acid 1 MG TAB PO SCH (09:02)
[2018-04-17] MEDS: Alogliptin 25 MG TAB PO SCH (09:02)
[2018-04-17] MEDS: Finasteride 5 MG TAB PO SCH (09:02)
[2018-04-17] MEDS: Famotidine 20 MG TAB PO SCH (09:02)
[2018-04-17] MEDS: Saccharomyces boulardii 250 MG CAP PO SCH (09:02)
[2018-04-17] MEDS: Fish Oil 1,000 MG CAP PO SCH ×2 (09:02→20:56)
[2018-04-17] MEDS: Vancomycin HCl 500 MG in Sodium Chloride 0.9% 100 ML IVPB SCH ×2 (09:03→21:10)
[2018-04-17] MEDS: Vancomycin HCl 750 MG in Sodium Chloride 0.9% 250 ML 250 ML IVPB SCH ×2 (09:03→21:10)
[2018-04-17] MEDS: cefTRIAXone\\ROCEPHIN 2 GM in Sodium Chloride 0.9% 100 ML IVPB SCH (15:22)
[2018-04-17 19:06] LABS: Bilirubin Negative (Negative); Blood, Urine Trace (Negative); Glucose, Urine (Dipstick) 250 mg/dL (Negative); Leukocyte Negative (Negative); Nitrite Negative (Negative); Protein, Urine (Dipstick) 30 mg/dL (Neg-Trace); Urobilinogen 0.2 mg/dL (0.2-1.0)
[2018-04-17 19:12] LABS: Clarity SL HAZY (Clear)
[2018-04-17 19:14] LABS: RBC/HPF 0-3 HPF (0-3); Squamous Epithelial 0-3 HPF (0-3); Yeast-All Forms 2+ HPF (None Seen)
[2018-04-17] MEDS: Tamsulosin HCl 0.4 MG CAP PO SCH (20:56)
[2018-04-17] MEDS: Rosuvastatin 10 MG TAB PO SCH (20:56)
[2018-04-18 05:13] LABS: #Basophils 0.1 thou/uL (0.0-0.2); #Eosinphils 0.2 thou/uL (0.0-0.7); #Lymphocytes 3.3 thou/uL (1.20-3.40); #Monocytes 0.8 thou/uL (0.11-0.59); #Neutrophils 3.1 thou/uL (1.40-6.50); %Lymphocytes 44.5 % (21.0-51.0); %Monocytes 10.2 % (0.0-10.0); %Neutrophils 41.3 % (42.0-75.0); Hemoglobin 11.9 g/dL (14.0-18.0); Mean Corpuscular Hemoglobin 25.8 pg (27.0-31.0); Mean Corpuscular Volume 83.1 fL (78.0-98.0); Mean Platelet Volume 6.4 fL (7.4-10.4); Platelet Count 234 thou/uL (130-400); RBC Distribution Width 15.9 % (11.5-14.5); White Blood Cell (WBC) Count 7.4 thou/uL (4.8-10.8)
[2018-04-18 05:33] LABS: ALT (SGPT) 7 U/L (8-55); AST (SGOT) 19 U/L (5-34); Albumin 3.6 g/dL (3.4-4.8); Alkaline Phosphatase 69 U/L (40-150); Anion Gap 15 mmol/L (10-20); BUN (Urea Nitrogen) 8 mg/dL (8.4-25.7); Bilirubin, Total 0.3 mg/dL (0.2-1.2); Calc. Creatinine Clearance 148 mL/min (70-130); Calcium 9.7 mg/dL (7.8-10.44); Carbon Dioxide 23 mmol/L (23-31); Chloride 100 mmol/L (98-107); Estimated GFR-MDRD Greater than 90; Globulin 3.7 g/dL (2.4-3.5); Glucose 151 mg/dL (80-115); Potassium 3.9 mmol/L (3.5-5.1); Protein, Total 7.3 g/dL (5.8-8.1); Sodium 134 mmol/L (136-145)
[2018-04-18] MEDS: Levothyroxine Sodium 100 MCG TAB PO SCH (06:07)
[2018-04-18] MEDS: metroNIDAZOLE 500 MG TAB PO SCH ×3 (08:26→21:30)
[2018-04-18] MEDS: Potassium Chloride 20 MEQ TAB PO SCH ×2 (08:26→17:30)
[2018-04-18] MEDS: Famotidine 20 MG TAB PO SCH (08:26)
[2018-04-18] MEDS: Gabapentin 300 MG CAP PO SCH ×3 (08:26→21:30)
[2018-04-18] MEDS: Alogliptin 25 MG TAB PO SCH (08:26)
[2018-04-18] MEDS: Saccharomyces boulardii 250 MG CAP PO SCH (08:26)
[2018-04-18] MEDS: Fish Oil 1,000 MG CAP PO SCH ×2 (08:26→21:29)
[2018-04-18] MEDS: Finasteride 5 MG TAB PO SCH (08:27)
[2018-04-18] MEDS: Folic Acid 1 MG TAB PO SCH (08:27)
[2018-04-18] MEDS: Valproate Sodium 250 mg/5 ml UD Cup PO SCH ×2 (08:27→21:29)
[2018-04-18] MEDS: Lantus 1000 UNITS/10 ML VIAL SC SCH (08:28)
[2018-04-18] MEDS: Vancomycin HCl 500 MG in Sodium Chloride 0.9% 100 ML IVPB SCH ×2 (09:55→21:23)
[2018-04-18] MEDS: Vancomycin HCl 750 MG in Sodium Chloride 0.9% 250 ML 250 ML IVPB SCH ×2 (09:55→21:23)
--- NOTE | 2018-04-18 10:43 | PRG ---
DATE OF SERVICE: 04/17/2018 SUBJECTIVE: The patient feels well. He is alert, awake, and cheerful, but not eating well today. No nausea, vomiting, cough, or shortness of breath. OBJECTIVE: VITAL SIGNS: Shows blood pressure is 185/97, temperature is 96, pulse 111, respirations 20, O2 saturations 96% on room air. LUNGS: Clear. CARDIAC: Regular rhythm. ABDOMEN: Soft and nontender. SKIN AND EXTREMITIES: Show no edema, clubbing, or cyanosis. Wound VAC is in place. LABORATORY DATA: Accu-Cheks are still elevated greater than 200 today despite increasing insulin and poor appetite. ASSESSMENT: 1. Type 2 diabetes with worsening, controlled, slight poor eating possibly due to sign of infection. 2. Osteomyelitis of left ischium with wound VAC, on IV Rocephin and vancomycin and oral Flagyl with labs to be done today. 3. Mental deficiency and cognitive deficits from mental retardation. PLAN: CBC, comprehensive metabolic panel, sed rate, CRP, and urinalysis. Increase insulin to 24 units subcu q.a.m. and continue to monitor Accu-Cheks closely. Job ID: [id number]
[2018-04-18] MEDS: cefTRIAXone\\ROCEPHIN 2 GM in Sodium Chloride 0.9% 100 ML IVPB SCH (15:03)
[2018-04-18] MEDS: Tamsulosin HCl 0.4 MG CAP PO SCH (21:29)
[2018-04-18] MEDS: Rosuvastatin 10 MG TAB PO SCH (21:30)
[2018-04-19 06:04] LABS: #Basophils 0.1 thou/uL (0.0-0.2); #Eosinphils 0.3 thou/uL (0.0-0.7); #Lymphocytes 2.9 thou/uL (1.20-3.40); #Monocytes 0.7 thou/uL (0.11-0.59); #Neutrophils 3.6 thou/uL (1.40-6.50); %Basophils 0.7 % (0.0-1.0); %Eosinophils 3.7 % (0.0-10.0); %Lymphocytes 38.1 % (21.0-51.0); %Monocytes 9.6 % (0.0-10.0); Hemoglobin 11.5 g/dL (14.0-18.0); Mean Corpuscular HGB CONC 30.9 g/dL (32.0-36.0); Mean Corpuscular Hemoglobin 25.4 pg (27.0-31.0); Mean Platelet Volume 6.3 fL (7.4-10.4); Platelet Count 254 thou/uL (130-400); RBC Distribution Width 15.7 % (11.5-14.5); Red Blood Cell (RBC) Count 4.54 mill/uL (4.70-6.10); White Blood Cell (WBC) Count 7.6 thou/uL (4.8-10.8)
[2018-04-19] MEDS: Levothyroxine Sodium 100 MCG TAB PO SCH (06:23)
[2018-04-19] MEDS: metroNIDAZOLE 500 MG TAB PO SCH ×3 (08:18→20:51)
[2018-04-19] MEDS: Famotidine 20 MG TAB PO SCH (08:18)
[2018-04-19] MEDS: Valproate Sodium 250 mg/5 ml UD Cup PO SCH ×2 (08:18→20:53)
[2018-04-19] MEDS: Saccharomyces boulardii 250 MG CAP PO SCH (08:18)
[2018-04-19] MEDS: Gabapentin 300 MG CAP PO SCH ×3 (08:18→20:51)
[2018-04-19] MEDS: Finasteride 5 MG TAB PO SCH (08:18)
[2018-04-19] MEDS: Folic Acid 1 MG TAB PO SCH (08:18)
[2018-04-19] MEDS: Alogliptin 25 MG TAB PO SCH (08:19)
[2018-04-19] MEDS: Potassium Chloride 20 MEQ TAB PO SCH ×2 (08:19→17:43)
[2018-04-19] MEDS: Fish Oil 1,000 MG CAP PO SCH ×2 (08:19→20:51)
[2018-04-19] MEDS: Lantus 1000 UNITS/10 ML VIAL SC SCH (08:19)
[2018-04-19] MEDS: Vancomycin HCl 500 MG in Sodium Chloride 0.9% 100 ML IVPB SCH ×2 (10:40→22:47)
[2018-04-19] MEDS: Vancomycin HCl 750 MG in Sodium Chloride 0.9% 250 ML 250 ML IVPB SCH ×2 (10:40→22:47)
[2018-04-19] MEDS: cefTRIAXone\\ROCEPHIN 2 GM in Sodium Chloride 0.9% 100 ML IVPB SCH (15:27)
--- NOTE | 2018-04-19 20:09 | PRG ---
DATE OF SERVICE: 04/19/2018 SUBJECTIVE: The patient feels well, awake, and alert. Complaining of some knee pain. Appears to be in no distress. He is eating well. OBJECTIVE: EXTREMITIES: Left knee shows no swelling or tenderness. ABDOMEN: Soft and nontender. LUNGS: Clear. CARDIAC: Examination shows regular rhythm. VITAL SIGNS: Show blood pressure 141/79, temperature is 97, pulse 99, respirations 20, and O2 saturation is 97% on room air. ASSESSMENT: 1. Resolving left ischial osteomyelitis. 2. Stable cognitive deficits. 3. Uncontrolled type 2 diabetes, on Lantus 24 units every morning. 4. Cortes catheter in place. 5. Maintain integrity of wound VAC. PLAN: Continue Cortes. Increase Levemir to 25 units subcu q.a.m. Continue wound VAC and obtain sed rate and CRP in the a.m. Continue Rocephin, vancomycin with trough to be done on Monday. Continue oral Flagyl. Job ID: [id number]
--- NOTE | 2018-04-19 20:21 | PRG ---
DATE OF SERVICE: 04/18/2018 SUBJECTIVE: The patient is lying in the bed, feels well. No complaints. Alert, oriented, no distress. The patient is eating well. Having no nausea, vomiting, abdominal pain, or hip pain. OBJECTIVE: VITAL SIGNS: Show blood pressure is 137/83, temperature is 98, pulse 92, respiratory rate is 20, and O2 saturation is 97% on room air. LUNGS: Clear. CARDIAC: Shows regular rhythm. ABDOMEN: Soft and nontender, but slightly distended. SKIN/EXTREMITIES: Show wound VAC in place on the left ischium. : Cortes catheter still in place. LABORATORY DATA: Laboratory showed white count of 7400, hematocrit 38, and hemoglobin of 11. Sodium 134, potassium 3.9, chloride 100, bicarbonate 23, BUN 8, creatinine 0.6, glucose is 146 to 258, calcium is 9.7, and globulin 3.7. ASSESSMENT: 1. Left ischial osteomyelitis with wound VAC in place, on antibiotics. 2. Type 2 diabetes with lack of control despite increasing insulin. 3. Mental retardation, cognitive deficit, stable. 4. Urinary retention and benign prostatic hypertrophy with Cortes catheter in place, secondary to inability to maintain integrity of the wound VAC. PLAN: Continue Cortes catheter. Continue wound VAC. Continue IV vancomycin, Rocephin, and oral Flagyl. Continue nutritional support. Job ID: [id number]
[2018-04-19] MEDS: Rosuvastatin 10 MG TAB PO SCH (20:51)
[2018-04-19] MEDS: Tamsulosin HCl 0.4 MG CAP PO SCH (20:51)
[2018-04-20] MEDS: Levothyroxine Sodium 100 MCG TAB PO SCH (05:41)
[2018-04-20] MEDS: Saccharomyces boulardii 250 MG CAP PO SCH (08:54)
[2018-04-20] MEDS: Finasteride 5 MG TAB PO SCH (08:54)
[2018-04-20] MEDS: metroNIDAZOLE 500 MG TAB PO SCH ×3 (08:54→21:04)
[2018-04-20] MEDS: Valproate Sodium 250 mg/5 ml UD Cup PO SCH ×2 (08:54→21:05)
[2018-04-20] MEDS: Fish Oil 1,000 MG CAP PO SCH ×2 (08:55→21:04)
[2018-04-20] MEDS: Folic Acid 1 MG TAB PO SCH (08:55)
[2018-04-20] MEDS: Alogliptin 25 MG TAB PO SCH (08:55)
[2018-04-20] MEDS: Famotidine 20 MG TAB PO SCH (08:55)
[2018-04-20] MEDS: Gabapentin 300 MG CAP PO SCH ×3 (08:55→21:04)
[2018-04-20] MEDS: Potassium Chloride 20 MEQ TAB PO SCH ×2 (08:55→17:33)
[2018-04-20] MEDS: Vancomycin HCl 500 MG in Sodium Chloride 0.9% 100 ML IVPB SCH ×2 (09:47→21:17)
[2018-04-20] MEDS: Lantus 1000 UNITS/10 ML VIAL SC SCH (09:47)
[2018-04-20] MEDS: Vancomycin HCl 750 MG in Sodium Chloride 0.9% 250 ML 250 ML IVPB SCH ×2 (09:47→21:16)
[2018-04-20] MEDS: cefTRIAXone\\ROCEPHIN 2 GM in Sodium Chloride 0.9% 100 ML IVPB SCH (15:14)
[2018-04-20] MEDS ORDERED: Lantus 1000 UNITS/10 ML VIAL SC SCH ×3 (18:47→20:00)
[2018-04-20] MEDS: Naproxen 500 MG TAB PO SCH (21:04)
[2018-04-20] MEDS: Rosuvastatin 10 MG TAB PO SCH (21:04)
[2018-04-20] MEDS: Tamsulosin HCl 0.4 MG CAP PO SCH (21:04)
[2018-04-21] MEDS: Levothyroxine Sodium 100 MCG TAB PO SCH (05:30)
[2018-04-21] MEDS: Fish Oil 1,000 MG CAP PO SCH ×2 (09:00→21:50)
[2018-04-21] MEDS: Valproate Sodium 250 mg/5 ml UD Cup PO SCH ×2 (09:00→21:50)
[2018-04-21] MEDS: Saccharomyces boulardii 250 MG CAP PO SCH (09:00)
[2018-04-21] MEDS: Alogliptin 25 MG TAB PO SCH (09:00)
[2018-04-21] MEDS: Potassium Chloride 20 MEQ TAB PO SCH ×2 (09:00→17:15)
[2018-04-21] MEDS: Naproxen 500 MG TAB PO SCH ×2 (09:00→21:51)
[2018-04-21] MEDS: Lantus 1000 UNITS/10 ML VIAL SC SCH (09:00)
[2018-04-21] MEDS: Finasteride 5 MG TAB PO SCH (09:01)
[2018-04-21] MEDS: Famotidine 20 MG TAB PO SCH (09:01)
[2018-04-21] MEDS: Folic Acid 1 MG TAB PO SCH (09:01)
[2018-04-21] MEDS: metroNIDAZOLE 500 MG TAB PO SCH ×3 (09:01→21:51)
[2018-04-21] MEDS: Gabapentin 300 MG CAP PO SCH ×3 (09:01→21:51)
[2018-04-21 09:22] LABS: Vancomycin, Trough 18.1 ug/mL
[2018-04-21] MEDS: Vancomycin HCl 750 MG in Sodium Chloride 0.9% 250 ML 250 ML IVPB SCH ×2 (09:43→21:51)
[2018-04-21] MEDS: Vancomycin HCl 500 MG in Sodium Chloride 0.9% 100 ML IVPB SCH ×2 (09:44→21:51)
[2018-04-21] MEDS: cefTRIAXone\\ROCEPHIN 2 GM in Sodium Chloride 0.9% 100 ML IVPB SCH (14:47)
--- NOTE | 2018-04-21 16:53 | PRG ---
DATE OF SERVICE: 04/21/2018 SUBJECTIVE: Mr. Haro is a 62-year-old white male who developed urinary tract infection with sepsis and bacteremia with Escherichia coli. He was found to have osteomyelitis of the left sacral area which was positive on the bone scan. He was started on vancomycin, Rocephin, and Flagyl. He continues to be on hospital and being treated with his IV antibiotics. He also has diabetes which has been out of control. PHYSICAL EXAMINATION: VITAL SIGNS: Yesterday, reveal blood pressure 123/73, pulse 91 to 102, respirations 20, and O2 sat 92% to 98% on room air, T-max 97.3. GENERAL: This is a well-developed, well-nourished, obese, somewhat seems white male, in no apparent distress at this time. HEENT: Reveals normocephalic, nontraumatic cranium. Pupils are equally round and reactive. Extraocular movements are intact. Nose and throat are slightly dry. NECK: Supple without masses, nodes, or bruits. CHEST: Clear to auscultation. No rales, rhonchi, or wheezes are heard. HEART: Reveals a regular rate and rhythm without murmurs, gallops, or rubs. ABDOMEN: Soft, obese, nontender without organomegaly. Normal bowel sounds are noted. No rebound or guarding is noted. : Deferred. EXTREMITIES: Reveal no clubbing, cyanosis, or edema. Yesterday, the patient was complaining of knee pain and today, he has no complaints. LABORATORY DATA: Sugars reveal fasting yesterday morning 154; before lunch, 233; before supper, 196; and before bedtime, 236. Fasting this morning at 148; before lunch, 207. ASSESSMENT: 1. Left ischial osteomyelitis. 2. Cognitive deficits. 3. Diabetes, out of control, but much improved. 4. Cortes catheter in place. 5. Wound VAC. PLAN: 1. Continue present antibiotic regimen. 2. Levemir has been increased to 25 units subcu q.a.m. We will continue to follow that closely. 3. Continue wound VAC. 4. Continue Rocephin and vancomycin on IV. 5. Vancomycin level this morning was 18.1, so continue same dosing. 6. Continue oral Flagyl. Job ID: [id number]
[2018-04-21] MEDS: Tamsulosin HCl 0.4 MG CAP PO SCH (21:50)
[2018-04-21] MEDS: Rosuvastatin 10 MG TAB PO SCH (21:51)
[2018-04-22] MEDS: Levothyroxine Sodium 100 MCG TAB PO SCH (06:37)
[2018-04-22] MEDS: Naproxen 500 MG TAB PO SCH ×2 (08:15→21:38)
[2018-04-22] MEDS: Saccharomyces boulardii 250 MG CAP PO SCH (08:15)
[2018-04-22] MEDS: Valproate Sodium 250 mg/5 ml UD Cup PO SCH ×2 (08:15→21:37)
[2018-04-22] MEDS: Famotidine 20 MG TAB PO SCH (08:15)
[2018-04-22] MEDS: Gabapentin 300 MG CAP PO SCH ×3 (08:15→21:37)
[2018-04-22] MEDS: Potassium Chloride 20 MEQ TAB PO SCH ×2 (08:15→17:25)
[2018-04-22] MEDS: Fish Oil 1,000 MG CAP PO SCH ×2 (08:15→21:37)
[2018-04-22] MEDS: metroNIDAZOLE 500 MG TAB PO SCH ×3 (08:15→21:38)
[2018-04-22] MEDS: Folic Acid 1 MG TAB PO SCH (08:15)
[2018-04-22] MEDS: Alogliptin 25 MG TAB PO SCH (08:15)
[2018-04-22] MEDS: Finasteride 5 MG TAB PO SCH (08:16)
[2018-04-22] MEDS: Lantus 1000 UNITS/10 ML VIAL SC SCH (08:16)
[2018-04-22] MEDS: Vancomycin HCl 500 MG in Sodium Chloride 0.9% 100 ML IVPB SCH ×2 (09:42→21:38)
[2018-04-22] MEDS: Vancomycin HCl 750 MG in Sodium Chloride 0.9% 250 ML 250 ML IVPB SCH ×2 (09:42→21:38)
[2018-04-22] MEDS: cefTRIAXone\\ROCEPHIN 2 GM in Sodium Chloride 0.9% 100 ML IVPB SCH (15:04)
[2018-04-22] MEDS: Rosuvastatin 10 MG TAB PO SCH (21:37)
[2018-04-22] MEDS: Tamsulosin HCl 0.4 MG CAP PO SCH (21:38)
[2018-04-23] MEDS: Levothyroxine Sodium 100 MCG TAB PO SCH (05:45)
--- NOTE | 2018-04-23 07:51 | PRG ---
DATE OF SERVICE: 04/22/2018 SUBJECTIVE: Mr. Haro is a 62-year-old white male who developed a bad urinary tract infection with sepsis and bacteremia with Escherichia coli. He also had osteomyelitis of the left sacral area which was positive on the bone scan. He was started on vancomycin, Rocephin, and Flagyl. He continues to be in the hospital to be treated with IV antibiotics. PHYSICAL EXAMINATION: VITAL SIGNS: Today reveal blood pressure this morning 168/89, pulse 86 to 93, respirations 18 to 20, and O2 sat 95% to 98% on room air, T-max 98.0. GENERAL: This is a well-developed, well-nourished, somewhat obese white male, in no apparent distress at this time. HEENT: Reveals normocephalic, nontraumatic cranium. Pupils are equally round and reactive. Extraocular movements are intact. Nose and throat are slightly dry. NECK: Supple without masses, nodes, or bruits. CHEST: Clear to auscultation. No rales, rhonchi, or wheezes are heard. HEART: Reveals a regular rate and rhythm without murmurs, gallops, or rubs. ABDOMEN: Obese, soft, nontender without organomegaly. Normal bowel sounds are noted. No rebound or guarding is noted. : Deferred. EXTREMITIES: Reveal no clubbing, cyanosis, or edema. The patient has no complaints of knee pain today. LABORATORY DATA: Today reveal sugar 140 this morning fasting, 200 before lunch, 187 before supper. ASSESSMENT: 1. Left ischial osteomyelitis. 2. Cognitive deficits. 3. Diabetes, out of control, but still much improved. 4. Cortes catheter in place. 5. Wound VAC. PLAN: 1. Continue present antibiotic regimen. 2. The patient's Levaquin had been increased to 25 units subcu daily. Continue to follow that. 3. Continue wound VAC. 4. Continue Rocephin, vancomycin, and Flagyl. 5. Supportive care. Job ID: [id number]
[2018-04-23] MEDS: Potassium Chloride 20 MEQ TAB PO SCH ×2 (08:55→18:03)
[2018-04-23] MEDS: metroNIDAZOLE 500 MG TAB PO SCH ×3 (09:29→21:32)
[2018-04-23] MEDS: Fish Oil 1,000 MG CAP PO SCH ×2 (09:29→21:32)
[2018-04-23] MEDS: Valproate Sodium 250 mg/5 ml UD Cup PO SCH ×2 (09:29→21:32)
[2018-04-23] MEDS: Gabapentin 300 MG CAP PO SCH ×3 (09:30→21:32)
[2018-04-23] MEDS: Alogliptin 25 MG TAB PO SCH (09:30)
[2018-04-23] MEDS: Folic Acid 1 MG TAB PO SCH (09:30)
[2018-04-23] MEDS: Finasteride 5 MG TAB PO SCH (09:34)
[2018-04-23] MEDS: Naproxen 500 MG TAB PO SCH ×2 (09:34→21:32)
[2018-04-23] MEDS: Saccharomyces boulardii 250 MG CAP PO SCH (09:34)
[2018-04-23] MEDS: Lantus 1000 UNITS/10 ML VIAL SC SCH (09:35)
[2018-04-23] MEDS: Famotidine 20 MG TAB PO SCH (09:35)
[2018-04-23 10:14] LABS: Vancomycin, Trough 10.2 ug/mL
[2018-04-23] MEDS: Vancomycin HCl 500 MG in Sodium Chloride 0.9% 100 ML IVPB SCH ×2 (11:56→21:30)
[2018-04-23] MEDS: Vancomycin HCl 750 MG in Sodium Chloride 0.9% 250 ML 250 ML IVPB SCH ×2 (11:58→21:30)
--- NOTE | 2018-04-23 13:05 | PRG ---
DATE OF SERVICE: 04/20/2018 SUBJECTIVE: The patient feels well, lying in bed, in no distress, eating fairly well. No complaints of shortness of breath or nausea. OBJECTIVE: VITAL SIGNS: Show temperature is 99.7, pulse 99, respirations 20, O2 saturations 97% on room air, and blood pressure 128/68. LUNGS: Clear. CARDIAC: Showed regular rhythm. ABDOMEN: Soft and nontender. SKIN AND EXTREMITIES: Show wound VAC in place, functioning well. Heels have been elevated with some tenderness to the heel, but no ulcer seen. LABORATORY DATA: Sed rate is still 76, but Accu-Cheks are less than 200, ranging 140 to 200. C-reactive protein is 0.85. ASSESSMENT: 1. Resolving ischial decubitus with osteomyelitis. 2. Stable cognitive deficits. 3. Improved diabetes, controlled less than 200 on Lantus 25 units in the morning. 4. Stable Cortes catheter in place to maintain integrity of wound VAC. PLAN: 1. Continue 25 units subcu q.a.m. 2. Continue wound VAC. 3. His sed rate and CRP are improving. 4. Continue Rocephin and vancomycin. Trough level to be done tomorrow. Continue oral Flagyl. Job ID: [id number]
[2018-04-23] MEDS: cefTRIAXone\\ROCEPHIN 2 GM in Sodium Chloride 0.9% 100 ML IVPB SCH (15:28)
[2018-04-23] MEDS: Tamsulosin HCl 0.4 MG CAP PO SCH (21:31)
[2018-04-23] MEDS: Rosuvastatin 10 MG TAB PO SCH (21:32)
[2018-04-24] MEDS: Levothyroxine Sodium 100 MCG TAB PO SCH (05:37)
[2018-04-24] MEDS: Valproate Sodium 250 mg/5 ml UD Cup PO SCH ×2 (08:51→21:55)
[2018-04-24] MEDS: Folic Acid 1 MG TAB PO SCH (08:52)
[2018-04-24] MEDS: Fish Oil 1,000 MG CAP PO SCH ×2 (08:52→21:55)
[2018-04-24] MEDS: Gabapentin 300 MG CAP PO SCH ×3 (08:52→21:55)
[2018-04-24] MEDS: Saccharomyces boulardii 250 MG CAP PO SCH (08:52)
[2018-04-24] MEDS: Alogliptin 25 MG TAB PO SCH (08:52)
[2018-04-24] MEDS: Finasteride 5 MG TAB PO SCH (08:52)
[2018-04-24] MEDS: Famotidine 20 MG TAB PO SCH (08:52)
[2018-04-24] MEDS: metroNIDAZOLE 500 MG TAB PO SCH ×3 (08:52→21:55)
[2018-04-24] MEDS: Lantus 1000 UNITS/10 ML VIAL SC SCH (08:53)
[2018-04-24] MEDS: Naproxen 500 MG TAB PO SCH ×2 (08:53→21:55)
[2018-04-24] MEDS: Potassium Chloride 20 MEQ TAB PO SCH ×2 (08:53→17:59)
[2018-04-24] MEDS: Vancomycin HCl 500 MG in Sodium Chloride 0.9% 100 ML IVPB SCH ×2 (09:43→21:54)
[2018-04-24] MEDS: Vancomycin HCl 750 MG in Sodium Chloride 0.9% 250 ML 250 ML IVPB SCH ×2 (09:44→21:53)
[2018-04-24] MEDS: cefTRIAXone\\ROCEPHIN 2 GM in Sodium Chloride 0.9% 100 ML IVPB SCH (14:57)
[2018-04-24] MEDS: Rosuvastatin 10 MG TAB PO SCH (21:55)
[2018-04-24] MEDS: Tamsulosin HCl 0.4 MG CAP PO SCH (21:55)
[2018-04-25] MEDS: Levothyroxine Sodium 100 MCG TAB PO SCH (05:59)
--- NOTE | 2018-04-25 06:05 | PRG ---
DATE OF SERVICE: 04/24/2018 SUBJECTIVE: The patient is lying in bed, resting, ready for . No complaints of shortness of breath, chest pain, nausea, or vomiting. He has been tolerating his diet well. OBJECTIVE: VITAL SIGNS: Shows his temperature is 97.2, respirations 12, pulse is 85, O2 saturation is 95% on room air, and blood pressure is 139/77. LUNGS: Clear. CARDIAC: Examination showed regular rhythm. ABDOMEN: Soft and nontender. Slightly distended. SKIN AND EXTREMITIES: Show trace edema. No clubbing or cyanosis. NEUROLOGIC: Shows diffuse generalized weakness, slow responses and decreased mental acuity. LABORATORY DATA: Lab showed Accu-Cheks improved, but still elevated to greater than 204, to 236 this afternoon on increased dose of insulin. ASSESSMENT: 1. Osteomyelitis, left ischium, stage IV decubitus, on wound VAC and IV Rocephin, vancomycin, and oral Flagyl until May 04. 2. Uncontrolled diabetes, on 25 units of Lantus in the morning and will increase to 30 units subcu q.a.m. 3. Stable cognitive deficits of unknown etiology with no change. 4. Stable Cortes catheter, placed to maintain integrity of wound VAC with no evidence of recurrent infection. PLAN: 1. Increase Lantus to 30 units subcu q.a.m. 2. Continue Accu-Cheks to monitor and titrate to control diabetes. 3. Continue wound VAC. 4. Continue vancomycin, Flagyl, and Rocephin with most recent vancomycin level low at 10 to 20 and dose will be continued at 1.25 g twice daily, but repeat the vancomycin trough level prior to next dose. . Job ID: [id number]
[2018-04-25] MEDS: Naproxen 500 MG TAB PO SCH ×2 (08:57→21:39)
[2018-04-25] MEDS: Fish Oil 1,000 MG CAP PO SCH ×2 (08:57→21:39)
[2018-04-25] MEDS: Potassium Chloride 20 MEQ TAB PO SCH ×2 (08:57→17:24)
[2018-04-25] MEDS: Gabapentin 300 MG CAP PO SCH ×3 (08:57→21:39)
[2018-04-25] MEDS: Famotidine 20 MG TAB PO SCH (08:57)
[2018-04-25] MEDS: Folic Acid 1 MG TAB PO SCH (08:57)
[2018-04-25] MEDS: Alogliptin 25 MG TAB PO SCH (08:57)
[2018-04-25] MEDS: Finasteride 5 MG TAB PO SCH (08:58)
[2018-04-25] MEDS: Lantus 1000 UNITS/10 ML VIAL SC SCH (08:58)
[2018-04-25] MEDS: Valproate Sodium 250 mg/5 ml UD Cup PO SCH ×2 (08:58→21:38)
[2018-04-25] MEDS: Saccharomyces boulardii 250 MG CAP PO SCH (08:58)
[2018-04-25] MEDS: metroNIDAZOLE 500 MG TAB PO SCH ×3 (08:58→21:39)
[2018-04-25 09:28] LABS: Vancomycin, Trough 18.5 ug/mL
[2018-04-25] MEDS: Vancomycin HCl 750 MG in Sodium Chloride 0.9% 250 ML 250 ML IVPB SCH ×2 (10:50→21:40)
[2018-04-25] MEDS: Vancomycin HCl 500 MG in Sodium Chloride 0.9% 100 ML IVPB SCH ×2 (10:50→21:40)
[2018-04-25] MEDS ORDERED: Sodium Chloride 0.9% 100 ML ONE (15:18)
[2018-04-25] MEDS: cefTRIAXone\\ROCEPHIN 2 GM in Sodium Chloride 0.9% 100 ML IVPB SCH (15:21)
[2018-04-25] MEDS: Tamsulosin HCl 0.4 MG CAP PO SCH (21:39)
[2018-04-25] MEDS: Rosuvastatin 10 MG TAB PO SCH (21:39)
[2018-04-26] MEDS: Levothyroxine Sodium 100 MCG TAB PO SCH (05:47)
[2018-04-26 06:22] LABS: #Basophils 0.1 thou/uL (0.0-0.2); #Eosinphils 0.2 thou/uL (0.0-0.7); #Lymphocytes 2.7 thou/uL (1.20-3.40); #Monocytes 0.6 thou/uL (0.11-0.59); #Neutrophils 3.4 thou/uL (1.40-6.50); %Basophils 0.8 % (0.0-1.0); %Eosinophils 2.8 % (0.0-10.0); %Lymphocytes 39.2 % (21.0-51.0); %Monocytes 8.9 % (0.0-10.0); %Neutrophils 48.3 % (42.0-75.0); Hemoglobin 11.5 g/dL (14.0-18.0); Mean Corpuscular HGB CONC 30.9 g/dL (32.0-36.0); Mean Corpuscular Hemoglobin 25.3 pg (27.0-31.0); Mean Corpuscular Volume 81.7 fL (78.0-98.0); Mean Platelet Volume 6.9 fL (7.4-10.4); Platelet Count 217 thou/uL (130-400); RBC Distribution Width 15.3 % (11.5-14.5); Red Blood Cell (RBC) Count 4.54 mill/uL (4.70-6.10); White Blood Cell (WBC) Count 6.9 thou/uL (4.8-10.8)
[2018-04-26 06:54] LABS: ALT (SGPT) 8 U/L (8-55); AST (SGOT) 17 U/L (5-34); Albumin 3.4 g/dL (3.4-4.8); Alkaline Phosphatase 68 U/L (40-150); Anion Gap 13 mmol/L (10-20); BUN (Urea Nitrogen) 9 mg/dL (8.4-25.7); Bilirubin, Total 0.1 mg/dL (0.2-1.2); Calc. Creatinine Clearance 162 mL/min (70-130); Calcium 9.6 mg/dL (7.8-10.44); Carbon Dioxide 27 mmol/L (23-31); Chloride 105 mmol/L (98-107); Estimated GFR-MDRD Greater than 90; Globulin 3.1 g/dL (2.4-3.5); Glucose 124 mg/dL (80-115); Potassium 3.9 mmol/L (3.5-5.1); Protein, Total 6.5 g/dL (5.8-8.1); Sodium 141 mmol/L (136-145)
[2018-04-26] MEDS: Potassium Chloride 20 MEQ TAB PO SCH ×2 (08:49→17:23)
[2018-04-26] MEDS: Folic Acid 1 MG TAB PO SCH (08:49)
[2018-04-26] MEDS: Famotidine 20 MG TAB PO SCH (08:49)
[2018-04-26] MEDS: Lantus 1000 UNITS/10 ML VIAL SC SCH (08:50)
[2018-04-26] MEDS: Valproate Sodium 250 mg/5 ml UD Cup PO SCH ×2 (08:50→21:54)
[2018-04-26] MEDS: Finasteride 5 MG TAB PO SCH (08:50)
[2018-04-26] MEDS: Alogliptin 25 MG TAB PO SCH (08:50)
[2018-04-26] MEDS: Fish Oil 1,000 MG CAP PO SCH ×2 (08:50→21:54)
[2018-04-26] MEDS: metroNIDAZOLE 500 MG TAB PO SCH ×3 (08:50→21:55)
[2018-04-26] MEDS: Gabapentin 300 MG CAP PO SCH ×3 (08:50→21:55)
[2018-04-26] MEDS: Saccharomyces boulardii 250 MG CAP PO SCH (08:50)
[2018-04-26] MEDS: Naproxen 500 MG TAB PO SCH ×2 (08:53→21:54)
--- NOTE | 2018-04-26 09:22 | PRG ---
DATE OF SERVICE: 04/26/2018 HISTORY: The patient is an unfortunate 62-year-old white male, living in the long-term secondary to cognitive deficits, who has developed a stage IV left ischial decubitus with subsequent ischial osteomyelitis and he was admitted to [facility] for IV vancomycin, Rocephin, and oral Flagyl therapy until May 04. He has done well with wound VAC therapy and having minimal symptoms of pain and stable vital signs. He is eating well and is having no problems with nausea, vomiting, or diarrhea. He does have a Cortes catheter in place secondary to need to maintain integrity of the wound VAC. OBJECTIVE: The vital signs showed him to have a temperature of 98.7; pulse 96; respirations 18; O2 sat is 93% on room air; and blood pressure is 178/94, but does decrease to 127/79 later in the day. LABORATORY DATA: Accu-Cheks remained stable over the last 24 hours with an increase in his insulin to 30 units and have remained under 182 with no hypoglycemia. ASSESSMENT: 1. Left ischial osteomyelitis, stage IV decubitus, on IV Rocephin, vancomycin, and Flagyl until May 04 as well as wound VAC therapy with therapeutic trough levels to be repeated and routine laboratory to be repeated in the morning. 2. Type 2 diabetes with initial poor control, but appears to be adequate control with increased Lantus to 30 units subcu daily. 3. Cognitive deficits, chronic, of unknown etiology . 4. Stable Cortes catheter with no infection, kept in to maintain integrity of wound VAC. PLAN: Continue Lantus 30 units subcu q.a.m. Continue Accu-Cheks to monitor and titrate and control diabetes. Continue wound VAC. Continue vancomycin, Flagyl, and Rocephin, but repeat vancomycin level, even though the patient is on 1.25 g twice daily, had a subtherapeutic trough level on last evaluation. Job ID: [id number]
[2018-04-26] MEDS: Vancomycin HCl 500 MG in Sodium Chloride 0.9% 100 ML IVPB SCH ×2 (10:45→21:53)
[2018-04-26] MEDS: Vancomycin HCl 750 MG in Sodium Chloride 0.9% 250 ML 250 ML IVPB SCH ×2 (10:46→21:53)
[2018-04-26] MEDS: cefTRIAXone\\ROCEPHIN 2 GM in Sodium Chloride 0.9% 100 ML IVPB SCH (14:33)
[2018-04-26] MEDS: Tamsulosin HCl 0.4 MG CAP PO SCH (21:54)
[2018-04-26] MEDS: Rosuvastatin 10 MG TAB PO SCH (21:54)
[2018-04-27] MEDS: Levothyroxine Sodium 100 MCG TAB PO SCH (05:43)
[2018-04-27] MEDS: Naproxen 500 MG TAB PO SCH ×2 (08:47→21:02)
[2018-04-27] MEDS: Folic Acid 1 MG TAB PO SCH (08:47)
[2018-04-27] MEDS: Saccharomyces boulardii 250 MG CAP PO SCH (08:47)
[2018-04-27] MEDS: Valproate Sodium 250 mg/5 ml UD Cup PO SCH ×2 (08:48→21:01)
[2018-04-27] MEDS: Famotidine 20 MG TAB PO SCH (08:48)
[2018-04-27] MEDS: Fish Oil 1,000 MG CAP PO SCH ×2 (08:48→21:02)
[2018-04-27] MEDS: Potassium Chloride 20 MEQ TAB PO SCH ×2 (08:48→17:14)
[2018-04-27] MEDS: Alogliptin 25 MG TAB PO SCH (08:48)
[2018-04-27] MEDS: metroNIDAZOLE 500 MG TAB PO SCH ×3 (08:48→21:02)
[2018-04-27] MEDS: Finasteride 5 MG TAB PO SCH (08:48)
[2018-04-27] MEDS: Gabapentin 300 MG CAP PO SCH ×3 (08:48→21:02)
[2018-04-27] MEDS: Lantus 1000 UNITS/10 ML VIAL SC SCH (08:49)
[2018-04-27] MEDS: Vancomycin HCl 500 MG in Sodium Chloride 0.9% 100 ML IVPB SCH ×2 (10:09→21:05)
[2018-04-27] MEDS: Vancomycin HCl 750 MG in Sodium Chloride 0.9% 250 ML 250 ML IVPB SCH ×2 (10:09→21:04)
--- NOTE | 2018-04-27 10:20 | PRG ---
DATE OF SERVICE: 04/27/2018 SUBJECTIVE: Mr. Haro is resting comfortably. He is finishing his breakfast. He is tolerating his antibiotics. He denies any questions or concerns. OBJECTIVE: GENERAL: He is afebrile. VITAL SIGNS: Heart rate 81, respirations 16, oxygen saturation 97% on room air, and blood pressure 124/89. CARDIOVASCULAR: S1 and S2 plus. RESPIRATORY: Normal vesicular breath sounds. ABDOMEN: Soft, nontender. Bowel sounds in all quadrants. EXTREMITIES: Without cyanosis or clubbing. IMPRESSION: 1. Left ischial osteomyelitis. 2. Diabetes mellitus, type 2, improving control. 3. Hypertension. 4. Intellectual disability. 5. Hypothyroidism. 6. Dyslipidemia. 7. Benign prostatic hypertrophy. PLAN: 1. Continue current medications including antibiotics, wound VAC, and Cortes catheter care. 2. 1800-calorie heart healthy ADA diet. 3. Accu-Chek with sliding scale coverage. 4. DVT and stress ulcer prophylaxis. 5. Decubitus precautions. 6. Routine laboratory value. 7. No family at bedside. 8. Discussed with the patient and nursing. Job ID: [id number]
[2018-04-27] MEDS: cefTRIAXone\\ROCEPHIN 2 GM in Sodium Chloride 0.9% 100 ML IVPB SCH (15:31)
[2018-04-27] MEDS: Rosuvastatin 10 MG TAB PO SCH (21:02)
[2018-04-27] MEDS: Tamsulosin HCl 0.4 MG CAP PO SCH (21:02)
[2018-04-28 03:41] LABS: Follow-up Chemistry Comp? YES
[2018-04-28] MEDS: Levothyroxine Sodium 100 MCG TAB PO SCH (06:18)
[2018-04-28] MEDS: Alogliptin 25 MG TAB PO SCH (08:40)
[2018-04-28] MEDS: Potassium Chloride 20 MEQ TAB PO SCH ×2 (08:40→16:02)
[2018-04-28] MEDS: Fish Oil 1,000 MG CAP PO SCH ×2 (08:40→20:50)
[2018-04-28] MEDS: Saccharomyces boulardii 250 MG CAP PO SCH (08:40)
[2018-04-28] MEDS: Valproate Sodium 250 mg/5 ml UD Cup PO SCH ×2 (08:40→20:49)
[2018-04-28] MEDS: Lantus 1000 UNITS/10 ML VIAL SC SCH (08:41)
[2018-04-28] MEDS: Finasteride 5 MG TAB PO SCH (08:41)
[2018-04-28] MEDS: Folic Acid 1 MG TAB PO SCH (08:41)
[2018-04-28] MEDS: Famotidine 20 MG TAB PO SCH (08:41)
[2018-04-28] MEDS: Naproxen 500 MG TAB PO SCH ×2 (08:41→20:50)
[2018-04-28] MEDS: metroNIDAZOLE 500 MG TAB PO SCH ×3 (08:41→20:50)
[2018-04-28] MEDS: Gabapentin 300 MG CAP PO SCH ×3 (08:41→20:50)
[2018-04-28] MEDS: Vancomycin HCl 750 MG in Sodium Chloride 0.9% 250 ML 250 ML IVPB SCH ×2 (10:07→21:45)
[2018-04-28] MEDS: Vancomycin HCl 500 MG in Sodium Chloride 0.9% 100 ML IVPB SCH ×2 (10:08→21:45)
[2018-04-28] MEDS ORDERED: Dextrose 50% Abboject 50 ML SYRINGE SLOW IVP PRN (15:15)
[2018-04-28] MEDS ORDERED: Dextrose 5% in Water 1,000 ML IV PRN (15:15)
[2018-04-28] MEDS: cefTRIAXone\\ROCEPHIN 2 GM in Sodium Chloride 0.9% 100 ML IVPB SCH (15:19)
[2018-04-28] MEDS ORDERED: cefTRIAXone\\ROCEPHIN 2 GM VIAL ONE (15:42)
--- NOTE | 2018-04-28 16:03 | PRG ---
DATE OF SERVICE: 04/28/2018 SUBJECTIVE: Mr. Haro apparently had a breakthrough seizure last evening. Stat Depakote level was done, which was low. His Depakote dose has been increased from 250 mg b.i.d. to 500 mg b.i.d. I saw the patient this afternoon and wound care is underway. His wound looks healthy. Apparently, the dressing and VAC does not stay in place due to the location. No fever or chills. He did have a high blood sugar of 222 this morning because he drank a lot of orange juice; otherwise, his blood sugars have been below 200. No family at bedside. OBJECTIVE: VITAL SIGNS: He is afebrile. Heart rate 82, respirations 18, oxygen saturation 96% on room air, and blood pressure 147/83. CARDIOVASCULAR: S1 and S2 plus. RESPIRATORY: Normal vesicular breath sounds. ABDOMEN: Soft, nontender. Bowel sounds in all quadrants. EXTREMITIES: Without cyanosis or clubbing. PELVIC: Stage IV decubitus. IMPRESSION: 1. Osteomyelitis. 2. Breakthrough seizures. 3. Hypertension. 4. Hypothyroidism. 5. Dyslipidemia. 6. Benign prostatic hypertrophy. PLAN: 1. Continue current medications. 2. Nutritional support. 3. DVT and stress ulcer prophylaxis. 4. Decubitus precautions. 5. Routine laboratory values. 6. Wound care. 7. Antibiotics. 8. Monitor for any breakthrough seizures. 9. Possibly recheck Depakote level in about 3 to 5 days. 10. Discussed with the patient and nursing in detail and all questions answered. Job ID: [id number]
[2018-04-28] MEDS: HumaLOG 300 UNITS/3 ML VIAL SC PRN (16:21)
[2018-04-28] MEDS: Rosuvastatin 10 MG TAB PO SCH (20:50)
[2018-04-28] MEDS: Tamsulosin HCl 0.4 MG CAP PO SCH (20:50)
[2018-04-29] MEDS: Levothyroxine Sodium 100 MCG TAB PO SCH (05:27)
[2018-04-29] MEDS: Valproate Sodium 250 mg/5 ml UD Cup PO SCH ×2 (08:28→21:16)
[2018-04-29] MEDS: Folic Acid 1 MG TAB PO SCH (08:29)
[2018-04-29] MEDS: Saccharomyces boulardii 250 MG CAP PO SCH (08:29)
[2018-04-29] MEDS: Naproxen 500 MG TAB PO SCH ×2 (08:29→21:16)
[2018-04-29] MEDS: Famotidine 20 MG TAB PO SCH (08:29)
[2018-04-29] MEDS: Finasteride 5 MG TAB PO SCH (08:29)
[2018-04-29] MEDS: Potassium Chloride 20 MEQ TAB PO SCH ×2 (08:29→16:23)
[2018-04-29] MEDS: Gabapentin 300 MG CAP PO SCH ×3 (08:29→21:17)
[2018-04-29] MEDS: Fish Oil 1,000 MG CAP PO SCH ×2 (08:29→21:16)
[2018-04-29] MEDS: Alogliptin 25 MG TAB PO SCH (08:29)
[2018-04-29] MEDS: metroNIDAZOLE 500 MG TAB PO SCH ×3 (08:29→21:16)
[2018-04-29] MEDS: Lantus 1000 UNITS/10 ML VIAL SC SCH (08:37)
[2018-04-29] MEDS: Vancomycin HCl 750 MG in Sodium Chloride 0.9% 250 ML 250 ML IVPB SCH ×2 (10:17→21:17)
[2018-04-29] MEDS: Vancomycin HCl 500 MG in Sodium Chloride 0.9% 100 ML IVPB SCH ×2 (10:17→21:17)
[2018-04-29] MEDS: HumaLOG 300 UNITS/3 ML VIAL SC PRN (11:46)
[2018-04-29] MEDS: cefTRIAXone\\ROCEPHIN 2 GM in Sodium Chloride 0.9% 100 ML IVPB SCH (15:12)
--- NOTE | 2018-04-29 16:57 | PRG ---
DATE OF SERVICE: 04/29/2018 SUBJECTIVE: Mr. Haro is doing well. Denies any complaints. Resting comfortably. No further seizures. No family at bedside. OBJECTIVE: VITAL SIGNS: He is afebrile, heart rate 79, respirations 20, oxygen saturation 98%, blood pressure 144/85. CARDIOVASCULAR: S1 and S2 plus. RESPIRATORY: Normal vesicular breath sounds. ABDOMEN: Soft, nontender. Bowel sounds heard in all quadrants. EXTREMITIES: Without cyanosis or clubbing. Ischial decubitus with dressing. IMPRESSION: 1. Osteomyelitis. 2. Seizure disorder. 3. Hypertension. 4. Hypothyroidism. 5. Dyslipidemia. 6. Benign prostatic hypertrophy. PLAN: 1. Continue current medications. 2. Wound care. 3. Nutritional support. 4. IV antibiotics. 5. DVT and stress ulcer prophylaxis. 6. Decubitus precautions and care. 7. Recheck Depakote level in 3 to 5 days. 8. Seizure precautions. 9. No family at bedside. 10. Discussed with the patient in detail. 11. Dr. Lynch back to night. Job ID: [id number]
[2018-04-29] MEDS: Nystatin Powder 15 GM BOT TOP SCH (21:15)
[2018-04-29] MEDS: Tamsulosin HCl 0.4 MG CAP PO SCH (21:16)
[2018-04-29] MEDS: Rosuvastatin 10 MG TAB PO SCH (21:17)
[2018-04-30] MEDS: Levothyroxine Sodium 100 MCG TAB PO SCH (05:55)
[2018-04-30] MEDS: Vancomycin HCl 500 MG in Sodium Chloride 0.9% 100 ML IVPB SCH ×2 (08:31→21:20)
[2018-04-30] MEDS: Valproate Sodium 250 mg/5 ml UD Cup PO SCH ×2 (08:32→20:06)
[2018-04-30] MEDS: Vancomycin HCl 750 MG in Sodium Chloride 0.9% 250 ML 250 ML IVPB SCH ×2 (08:32→21:20)
[2018-04-30] MEDS: Fish Oil 1,000 MG CAP PO SCH ×2 (08:32→21:22)
[2018-04-30] MEDS: Finasteride 5 MG TAB PO SCH (08:33)
[2018-04-30] MEDS: Folic Acid 1 MG TAB PO SCH (08:33)
[2018-04-30] MEDS: Famotidine 20 MG TAB PO SCH (08:33)
[2018-04-30] MEDS: Naproxen 500 MG TAB PO SCH ×2 (08:33→21:22)
[2018-04-30] MEDS: metroNIDAZOLE 500 MG TAB PO SCH ×3 (08:33→21:22)
[2018-04-30] MEDS: Gabapentin 300 MG CAP PO SCH ×3 (08:33→21:22)
[2018-04-30] MEDS: Potassium Chloride 20 MEQ TAB PO SCH ×2 (08:33→17:56)
[2018-04-30] MEDS: Alogliptin 25 MG TAB PO SCH (08:33)
[2018-04-30] MEDS: Saccharomyces boulardii 250 MG CAP PO SCH (08:33)
[2018-04-30] MEDS: Lantus 1000 UNITS/10 ML VIAL SC SCH (08:35)
[2018-04-30] MEDS: Nystatin Powder 15 GM BOT TOP SCH ×2 (08:35→21:22)
--- NOTE | 2018-04-30 10:22 | PRG ---
DATE OF SERVICE: 04/30/2018 SUBJECTIVE: The patient feels well, no complaints, but did have an episode of seizure earlier this week and was found to have a subtherapeutic valproic acid level of 21.5. His subsequent valproic acid dose has been increased to 500 twice daily, and we will have another level drawn tomorrow. His osteomyelitis appears to be improving as his most recent sedimentation rate is down to 58 last week, and we will repeat it again this week. His white count has remained normal. He has had no complaints of shortness of breath or chest pain or abdominal pain. He is still having a Cortes catheter in place. Most recent urinalysis 2 weeks ago showing no abnormality. OBJECTIVE: VITAL SIGNS: Show his temperature is 98.3, pulse is 89, respirations 18, O2 sats 96% on room air, and blood pressure 140/81. LUNGS: Clear. CARDIAC: Shows regular rhythm. ABDOMEN: Soft and nontender. SKIN/EXTREMITIES: Show no edema. Wound VACs in place and functioning well. ASSESSMENT: 1. Osteomyelitis of left ischium, improving with improving sedimentation rate. No tenderness. No signs of inflammation with projected course of antibiotics IV to finish on the and continue then on oral suppressive antibiotics. 2. Cognitive deficits. Mental retardation appears to be stable. 3. Seizure disorder with recurrence on subtherapeutic valproic acid level, which has been increased recently and level will be checked again. 4. Type 2 diabetes, controlled to goal. PLAN: Valproic acid level in the a.m. Discuss long-term suppressive therapy with Infectious Disease. Discuss wound care with Physical Therapy. Repeat CBC and urinalysis. Job ID: [id number]
[2018-04-30 12:10] LABS: #Basophils 0.1 thou/uL (0.0-0.2); #Eosinphils 0.2 thou/uL (0.0-0.7); #Lymphocytes 2.9 thou/uL (1.20-3.40); #Monocytes 0.5 thou/uL (0.11-0.59); #Neutrophils 4.7 thou/uL (1.40-6.50); %Basophils 0.9 % (0.0-1.0); %Eosinophils 2.5 % (0.0-10.0); %Lymphocytes 34.7 % (21.0-51.0); %Monocytes 6.1 % (0.0-10.0); %Neutrophils 55.9 % (42.0-75.0); Hemoglobin 13.8 g/dL (14.0-18.0); Mean Corpuscular HGB CONC 31.1 g/dL (32.0-36.0); Mean Corpuscular Hemoglobin 25.6 pg (27.0-31.0); Mean Corpuscular Volume 82.2 fL (78.0-98.0); Mean Platelet Volume 6.7 fL (7.4-10.4); Platelet Count 191 thou/uL (130-400); RBC Distribution Width 15.4 % (11.5-14.5); White Blood Cell (WBC) Count 8.4 thou/uL (4.8-10.8)
[2018-04-30 12:17] LABS: ALT (SGPT) 11 U/L (8-55); AST (SGOT) 20 U/L (5-34); Albumin 3.8 g/dL (3.4-4.8); Alkaline Phosphatase 76 U/L (40-150); Anion Gap 16 mmol/L (10-20); BUN (Urea Nitrogen) 12 mg/dL (8.4-25.7); Bilirubin, Total 0.1 mg/dL (0.2-1.2); Calc. Creatinine Clearance 148 mL/min (70-130); Calcium 9.9 mg/dL (7.8-10.44); Carbon Dioxide 23 mmol/L (23-31); Chloride 103 mmol/L (98-107); Estimated GFR-MDRD Greater than 90; Globulin 3.5 g/dL (2.4-3.5); Glucose 142 mg/dL (80-115); Potassium 4.1 mmol/L (3.5-5.1); Protein, Total 7.3 g/dL (5.8-8.1); Sodium 138 mmol/L (136-145)
[2018-04-30] MEDS: cefTRIAXone\\ROCEPHIN 2 GM in Sodium Chloride 0.9% 100 ML IVPB SCH (15:28)
[2018-04-30] MEDS: HumaLOG 300 UNITS/3 ML VIAL SC PRN (17:56)
[2018-04-30] MEDS: Tamsulosin HCl 0.4 MG CAP PO SCH (21:22)
[2018-04-30] MEDS: Rosuvastatin 10 MG TAB PO SCH (21:22)
[2018-05-01 05:54] LABS: CRP (Inflammatory) Less than 0.50 mg/dL (= or < 0.5)
[2018-05-01] MEDS: Levothyroxine Sodium 100 MCG TAB PO SCH (06:51)
[2018-05-01] MEDS: Nystatin Powder 15 GM BOT TOP SCH ×2 (07:05→20:37)
[2018-05-01] MEDS ORDERED: Valproate Sodium 250 mg/5 ml UD Cup PO SCH ×2 (07:30→21:00)
[2018-05-01] MEDS: Saccharomyces boulardii 250 MG CAP PO SCH (08:50)
[2018-05-01] MEDS: Potassium Chloride 20 MEQ TAB PO SCH ×2 (08:50→17:19)
[2018-05-01] MEDS: Fish Oil 1,000 MG CAP PO SCH ×2 (08:50→20:36)
[2018-05-01] MEDS: metroNIDAZOLE 500 MG TAB PO SCH ×3 (08:50→20:37)
[2018-05-01] MEDS: Gabapentin 300 MG CAP PO SCH ×3 (08:51→20:37)
[2018-05-01] MEDS: Naproxen 500 MG TAB PO SCH ×2 (08:51→20:37)
[2018-05-01] MEDS: Famotidine 20 MG TAB PO SCH (08:51)
[2018-05-01] MEDS: Alogliptin 25 MG TAB PO SCH (08:51)
[2018-05-01] MEDS: Finasteride 5 MG TAB PO SCH (08:51)
[2018-05-01] MEDS: Lantus 1000 UNITS/10 ML VIAL SC SCH (08:51)
[2018-05-01] MEDS: Folic Acid 1 MG TAB PO SCH (08:51)
[2018-05-01] MEDS: Vancomycin HCl 750 MG in Sodium Chloride 0.9% 250 ML 250 ML IVPB SCH ×2 (10:52→21:58)
[2018-05-01] MEDS: Vancomycin HCl 500 MG in Sodium Chloride 0.9% 100 ML IVPB SCH ×2 (10:53→21:59)
[2018-05-01] MEDS: HumaLOG 300 UNITS/3 ML VIAL SC PRN (11:37)
[2018-05-01 12:38] LABS: Valproic Acid (Depakene) 46.2 ug/mL (50.0-100.0)
[2018-05-01] MEDS: cefTRIAXone\\ROCEPHIN 2 GM in Sodium Chloride 0.9% 100 ML IVPB SCH (14:55)
--- NOTE | 2018-05-01 20:23 | PRG ---
DATE OF SERVICE: 05/01/2018 SUBJECTIVE: The patient is awake and alert, in no distress. He did have a small seizure last night, but none today. He is eating well. No abdominal pain, nausea, or vomiting. OBJECTIVE: VITAL SIGNS: Show temperature is 96, pulse 108, respirations 20, O2 sats 95% on room air, and blood pressure 142/83. Most recent sedimentation rate today is 54. LABORATORY DATA: White count 8400, hematocrit 44, and hemoglobin 14. CRP is less than 0.5. Urinalysis within normal limits. Valproic acid level is slightly subtherapeutic at 46.2. ASSESSMENT: 1. Resolving left ischial osteomyelitis, stage 4 decubitus on IV antibiotics until May 04 and then transfer back to [facility]. Apparently, he has no family member available to make other decisions. 2. Seizure disorder with subtherapeutic valproic acid levels. We will increase the valproic acid to 500 mg every 8 hours and continue to monitor closely. 3. Cognitive deficits for many years, appears to be stable with no difficulty or changes at this time. Job ID: [id number]
[2018-05-01] MEDS: Tamsulosin HCl 0.4 MG CAP PO SCH (20:36)
[2018-05-01] MEDS: Valproate Sodium 250 mg/5 ml UD Cup PO SCH (20:36)
[2018-05-01] MEDS: Rosuvastatin 10 MG TAB PO SCH (20:37)
[2018-05-02] MEDS: Valproate Sodium 250 mg/5 ml UD Cup PO SCH ×3 (05:48→21:49)
[2018-05-02] MEDS: Levothyroxine Sodium 100 MCG TAB PO SCH (05:49)
[2018-05-02] MEDS: Folic Acid 1 MG TAB PO SCH (08:49)
[2018-05-02] MEDS: Fish Oil 1,000 MG CAP PO SCH ×2 (08:49→21:50)
[2018-05-02] MEDS: metroNIDAZOLE 500 MG TAB PO SCH ×3 (08:49→21:50)
[2018-05-02] MEDS: Finasteride 5 MG TAB PO SCH (08:49)
[2018-05-02] MEDS: Lantus 1000 UNITS/10 ML VIAL SC SCH (08:49)
[2018-05-02] MEDS: Famotidine 20 MG TAB PO SCH (08:49)
[2018-05-02] MEDS: Alogliptin 25 MG TAB PO SCH (08:50)
[2018-05-02] MEDS: Saccharomyces boulardii 250 MG CAP PO SCH (08:50)
[2018-05-02] MEDS: Gabapentin 300 MG CAP PO SCH ×3 (08:50→21:50)
[2018-05-02] MEDS: Potassium Chloride 20 MEQ TAB PO SCH ×2 (08:50→18:22)
[2018-05-02] MEDS: Naproxen 500 MG TAB PO SCH ×2 (08:50→21:50)
[2018-05-02] MEDS: Nystatin Powder 15 GM BOT TOP SCH ×2 (08:51→21:50)
[2018-05-02 09:36] LABS: Vancomycin, Trough 19.1 ug/mL
[2018-05-02] MEDS: Vancomycin HCl 500 MG in Sodium Chloride 0.9% 100 ML IVPB SCH ×2 (10:22→21:47)
[2018-05-02] MEDS: Vancomycin HCl 750 MG in Sodium Chloride 0.9% 250 ML 250 ML IVPB SCH ×2 (10:22→21:48)
[2018-05-02] MEDS: cefTRIAXone\\ROCEPHIN 2 GM in Sodium Chloride 0.9% 100 ML IVPB SCH (14:30)
--- NOTE | 2018-05-02 19:06 | PRG ---
DATE OF SERVICE: 05/02/2018 SUBJECTIVE: The patient is sitting in the bed, eating supper, being fed. No complaints of shortness of breath or chest pain, in no distress. OBJECTIVE: VITAL SIGNS: Show blood pressure of 136/78, temperature 98, pulse 81, respirations 16, and O2 sat is 97% on room air. LUNGS: Clear. CARDIAC: Showed regular rhythm. ABDOMEN: Soft and nontender. Wound VAC in place, functioning well. ASSESSMENT: 1. Resolving osteomyelitis of the left ischium, on antibiotics until May 04. 2. Stable cognitive deficits. 3. Seizure disorder. No recurrence. Increased the valproic acid to 500 q.8 with valproic acid level pending. PLAN: 1. Continue vancomycin for 2 more days. His therapeutic trough level is 19.1. Also continue Rocephin and Flagyl. 2. Continue nutritional support. 3. Continue wound VAC. Most likely, we will continue this at the senior living. Job ID: [id number]
[2018-05-02] MEDS: Rosuvastatin 10 MG TAB PO SCH (21:50)
[2018-05-02] MEDS: Tamsulosin HCl 0.4 MG CAP PO SCH (21:50)
[2018-05-03] MEDS: Fish Oil 1,000 MG CAP PO SCH ×3 (02:46→20:25)
[2018-05-03 05:55] LABS: ALT (SGPT) 9 U/L (8-55); AST (SGOT) 15 U/L (5-34); Albumin 3.7 g/dL (3.4-4.8); Alkaline Phosphatase 63 U/L (40-150); Anion Gap 13 mmol/L (10-20); BUN (Urea Nitrogen) 9 mg/dL (8.4-25.7); Bilirubin, Total 0.2 mg/dL (0.2-1.2); Calc. Creatinine Clearance 156 mL/min (70-130); Calcium 9.7 mg/dL (7.8-10.44); Carbon Dioxide 25 mmol/L (23-31); Chloride 104 mmol/L (98-107); Estimated GFR-MDRD Greater than 90; Glucose 113 mg/dL (80-115); Protein, Total 6.7 g/dL (5.8-8.1); Sodium 138 mmol/L (136-145)
[2018-05-03 06:17] LABS: #Basophils 0.1 thou/uL (0.0-0.2); #Eosinphils 0.2 thou/uL (0.0-0.7); #Lymphocytes 2.7 thou/uL (1.20-3.40); #Monocytes 0.6 thou/uL (0.11-0.59); #Neutrophils 3.7 thou/uL (1.40-6.50); %Basophils 1.2 % (0.0-1.0); %Eosinophils 3.3 % (0.0-10.0); %Lymphocytes 37.2 % (21.0-51.0); %Monocytes 8.2 % (0.0-10.0); %Neutrophils 50.2 % (42.0-75.0); Hemoglobin 11.9 g/dL (14.0-18.0); Mean Corpuscular HGB CONC 30.3 g/dL (32.0-36.0); Mean Corpuscular Hemoglobin 24.9 pg (27.0-31.0); Mean Corpuscular Volume 82.1 fL (78.0-98.0); Mean Platelet Volume 6.7 fL (7.4-10.4); Platelet Count 203 thou/uL (130-400); RBC Distribution Width 15.5 % (11.5-14.5); Red Blood Cell (RBC) Count 4.77 mill/uL (4.70-6.10); White Blood Cell (WBC) Count 7.4 thou/uL (4.8-10.8)
[2018-05-03 06:18] LABS: Anisocytosis SLIGHT = 6-15 cells (100X) (0-5/hpf); MDiff Complete? YES; Platelet Morphology Comment Appears Adequate
[2018-05-03] MEDS: Valproate Sodium 250 mg/5 ml UD Cup PO SCH ×3 (06:22→20:24)
[2018-05-03] MEDS: Levothyroxine Sodium 100 MCG TAB PO SCH (06:23)
[2018-05-03] MEDS: Potassium Chloride 20 MEQ TAB PO SCH ×2 (08:27→17:50)
[2018-05-03] MEDS: Famotidine 20 MG TAB PO SCH (09:32)
[2018-05-03] MEDS: Saccharomyces boulardii 250 MG CAP PO SCH (09:32)
[2018-05-03] MEDS: Naproxen 500 MG TAB PO SCH ×2 (09:32→20:25)
[2018-05-03] MEDS: metroNIDAZOLE 500 MG TAB PO SCH ×3 (09:33→20:25)
[2018-05-03] MEDS: Finasteride 5 MG TAB PO SCH (09:33)
[2018-05-03] MEDS: Gabapentin 300 MG CAP PO SCH ×3 (09:33→20:25)
[2018-05-03] MEDS: Vancomycin HCl 750 MG in Sodium Chloride 0.9% 250 ML 250 ML IVPB SCH ×2 (09:33→22:11)
[2018-05-03] MEDS: Folic Acid 1 MG TAB PO SCH (09:33)
[2018-05-03] MEDS: Alogliptin 25 MG TAB PO SCH (09:33)
[2018-05-03] MEDS: Lantus 1000 UNITS/10 ML VIAL SC SCH (09:34)
[2018-05-03] MEDS: Vancomycin HCl 500 MG in Sodium Chloride 0.9% 100 ML IVPB SCH ×2 (09:34→22:10)
[2018-05-03] MEDS: Nystatin Powder 15 GM BOT TOP SCH ×2 (09:55→20:25)
[2018-05-03 13:12] LABS: Valproic Acid (Depakene) 60.2 ug/mL (50.0-100.0)
[2018-05-03] MEDS: cefTRIAXone\\ROCEPHIN 2 GM in Sodium Chloride 0.9% 100 ML IVPB SCH (14:34)
[2018-05-03] MEDS: Tamsulosin HCl 0.4 MG CAP PO SCH (20:24)
[2018-05-03] MEDS: Rosuvastatin 10 MG TAB PO SCH (20:25)
[2018-05-04] MEDS: Levothyroxine Sodium 100 MCG TAB PO SCH (05:06)
[2018-05-04] MEDS: Valproate Sodium 250 mg/5 ml UD Cup PO SCH ×3 (05:06→21:02)
--- NOTE | 2018-05-04 08:44 | PRG ---
DATE OF SERVICE: 05/03/2018 SUBJECTIVE: The patient lying in the bed, in no distress, cheerful and happy, no complaints. He has been informed that his antibiotics will be finished on May 06 and will therefore continue admission here and physical therapy until antibiotics are finished. OBJECTIVE: VITAL SIGNS: Temperature 97.5, pulse 83, respirations 18, O2 sats 95% on room air, and blood pressure 149/80. LUNGS: Clear. CARDIAC: Regular rhythm. ABDOMEN: Soft and nontender. SKIN/EXTREMITIES: Wound VAC in place. No edema, clubbing, or cyanosis. ASSESSMENT: 1. Resolving left ischial osteomyelitis. Antibiotics until May 06. 2. Stable cognitive deficits, inability to maintain ADLs. 3. Seizure disorder. No recurrence in 24 hours with therapeutic valproic acid level of 60.2 at this time. PLAN: 1. Continue valproic acid 500 mg q.8. Continue IV vancomycin. His vancomycin trough is therapeutic at 19.1 as well as IV Rocephin and oral Flagyl until May 06. 2. Continue Cortes catheter until discharge to maintain wound VAC integrity. 3. Continue nutritional support and maintenance of ADLs. Job ID: [id number]
[2018-05-04] MEDS: Potassium Chloride 20 MEQ TAB PO SCH ×2 (08:58→18:12)
[2018-05-04] MEDS: Naproxen 500 MG TAB PO SCH ×2 (09:10→21:00)
[2018-05-04] MEDS: Saccharomyces boulardii 250 MG CAP PO SCH (09:10)
[2018-05-04] MEDS: Famotidine 20 MG TAB PO SCH (09:10)
[2018-05-04] MEDS: Fish Oil 1,000 MG CAP PO SCH ×2 (09:11→21:01)
[2018-05-04] MEDS: Folic Acid 1 MG TAB PO SCH (09:11)
[2018-05-04] MEDS: metroNIDAZOLE 500 MG TAB PO SCH ×3 (09:11→21:00)
[2018-05-04] MEDS: Alogliptin 25 MG TAB PO SCH (09:11)
[2018-05-04] MEDS: Finasteride 5 MG TAB PO SCH (09:11)
[2018-05-04] MEDS: Lantus 1000 UNITS/10 ML VIAL SC SCH (09:11)
[2018-05-04] MEDS: Gabapentin 300 MG CAP PO SCH ×3 (09:11→21:00)
[2018-05-04] MEDS: Vancomycin HCl 750 MG in Sodium Chloride 0.9% 250 ML 250 ML IVPB SCH ×2 (09:12→21:37)
[2018-05-04] MEDS: Vancomycin HCl 500 MG in Sodium Chloride 0.9% 100 ML IVPB SCH ×2 (09:12→21:37)
--- NOTE | 2018-05-04 09:19 | PRG ---
DATE OF SERVICE: 05/04/2018 SUBJECTIVE: The patient feels well with no complaints, lying in the bed, resting well. No shortness of breath. No nausea or vomiting. No further seizures. OBJECTIVE: VITAL SIGNS: Temperature is 96.7, pulse 91, respirations 16, O2 sats 95% on room air, and blood pressure 139/79. Accu-Cheks ranged from 98 to 174. Recent valproic acid level therapeutic at 60.2. LUNGS: Clear. CARDIAC: Regular rhythm. ABDOMEN: Soft and nontender. SKIN/EXTREMITIES: No edema, clubbing, or cyanosis. Wound VAC is in place. ASSESSMENT: 1. Resolving left ischial osteomyelitis, on IV and oral antibiotics until May 06. 2. Cortes catheter in place to maintain integrity of wound VAC and we will change on May 06. 3. Severe deconditioning, but improving. 4. Cognitive deficits limiting therapy and making the patient bedridden, stable. PLAN: 1. Continue IV antibiotics until May 06. 2. Continue Cortes catheter and change on May 06. 3. Discussed discharge planning with Case Management with plan to transfer back to [facility] on May 07. Job ID: [id number]
--- NOTE | 2018-05-04 09:36 | PRG ---
DATE OF SERVICE: 05/03/2018 SUBJECTIVE: The patient is awake and alert, in no distress, but did have another seizure last night, was postictal, but now is back to normal. OBJECTIVE: VITAL SIGNS: Temperature 99, pulse 78, respirations 18, O2 sats 99% on room air, blood pressure 157/86. LABORATORY DATA: White count 7400, hematocrit 39, hemoglobin 11.9. Accu-Cheks 98 to 136. Sodium 138, potassium 4.0, chloride 104, bicarb 25, BUN 9, creatinine 0.58, calcium 9.7, total bilirubin 0.2, AST 15, ALT 9. Wound VAC is in place and functioning well. We will replace tomorrow. ASSESSMENT: 1. Resolving osteomyelitis of left ischium with stage IV decubitus, on broad-spectrum antibiotics with Rocephin, vancomycin, and oral Flagyl. 2. Seizure disorder with recurrence of breakthrough seizures, but now with therapeutic valproic acid level of 60, and we will continue to monitor. 3. Deconditioning, stable. 4. Cognitive deficits, stable, with inability to maintain ADLs. 5. Cortes catheter secondary to need to maintain integrity of wound VAC. PLAN: 1. Continue antibiotics until May 06. 2. Continue valproic acid 500 q.8 and monitor for recurrent seizures. 3. Continue supportive care and arrange for [facility] to [facility]. Job ID: [id number]
[2018-05-04] MEDS: Nystatin Powder 15 GM BOT TOP SCH ×2 (09:50→21:01)
[2018-05-04] MEDS: cefTRIAXone\\ROCEPHIN 2 GM in Sodium Chloride 0.9% 100 ML IVPB SCH (14:06)
[2018-05-04] MEDS: Tamsulosin HCl 0.4 MG CAP PO SCH (21:00)
[2018-05-04] MEDS: Rosuvastatin 10 MG TAB PO SCH (21:00)
[2018-05-05] MEDS: Levothyroxine Sodium 100 MCG TAB PO SCH (05:26)
[2018-05-05] MEDS: Valproate Sodium 250 mg/5 ml UD Cup PO SCH ×3 (05:26→21:54)
[2018-05-05] MEDS: Saccharomyces boulardii 250 MG CAP PO SCH (09:11)
[2018-05-05] MEDS: Fish Oil 1,000 MG CAP PO SCH ×2 (09:11→21:55)
[2018-05-05] MEDS: Alogliptin 25 MG TAB PO SCH (09:11)
[2018-05-05] MEDS: Potassium Chloride 20 MEQ TAB PO SCH ×2 (09:12→16:12)
[2018-05-05] MEDS: Famotidine 20 MG TAB PO SCH (09:12)
[2018-05-05] MEDS: Folic Acid 1 MG TAB PO SCH (09:12)
[2018-05-05] MEDS: Gabapentin 300 MG CAP PO SCH ×3 (09:12→21:55)
[2018-05-05] MEDS: Finasteride 5 MG TAB PO SCH (09:12)
[2018-05-05] MEDS: metroNIDAZOLE 500 MG TAB PO SCH ×3 (09:12→21:55)
[2018-05-05] MEDS: Naproxen 500 MG TAB PO SCH ×2 (09:12→21:55)
[2018-05-05] MEDS: Vancomycin HCl 500 MG in Sodium Chloride 0.9% 100 ML IVPB SCH ×2 (09:13→22:35)
[2018-05-05] MEDS: Vancomycin HCl 750 MG in Sodium Chloride 0.9% 250 ML 250 ML IVPB SCH ×2 (09:13→22:34)
[2018-05-05] MEDS: Nystatin Powder 15 GM BOT TOP SCH ×2 (09:13→21:55)
[2018-05-05] MEDS: Lantus 1000 UNITS/10 ML VIAL SC SCH (09:17)
[2018-05-05] MEDS: cefTRIAXone\\ROCEPHIN 2 GM in Sodium Chloride 0.9% 100 ML IVPB SCH (16:10)
[2018-05-05] MEDS: Rosuvastatin 10 MG TAB PO SCH (21:55)
[2018-05-05] MEDS: Tamsulosin HCl 0.4 MG CAP PO SCH (21:55)
[2018-05-06] MEDS: Valproate Sodium 250 mg/5 ml UD Cup PO SCH ×3 (06:10→21:24)
[2018-05-06] MEDS: Levothyroxine Sodium 100 MCG TAB PO SCH (06:11)
--- NOTE | 2018-05-06 07:15 | PRG ---
DATE OF SERVICE: 05/05/2018 SUBJECTIVE: The patient feels well, lying in the bed, finishing his antibiotics and preparing for transfer back to his new [facility] facility next week at is still working on this. OBJECTIVE: VITAL SIGNS: Shows his blood pressure is 165/78, temperature is 98, pulse 78, respirations 20, and O2 sat is 95% on room air. LUNGS: Clear. CARDIAC: Shows regular rhythm. ABDOMEN: Soft and nontender. Wound VAC is in place. LABORATORY DATA: Accu-Cheks ranged from 103 to 160. ASSESSMENT: 1. Resolving osteomyelitis of the left ischium. 2. Stable cognitive deficits. 3. Urinary incontinence with Cortes catheter in place to maintain integrity of wound VAC. PLAN: 1. Continue wound VAC. 2. Finish antibiotics tomorrow. 3. Arrange for transfer to new [facility] in [place] next week. Job ID: [id number]
--- NOTE | 2018-05-06 09:01 | PRG ---
DATE OF SERVICE: 05/06/2018 SUBJECTIVE: The patient feels well, lying in bed, in no distress. No complaints. Slept well, was ready for breakfast. OBJECTIVE: VITAL SIGNS: Shows vital signs with temperature of 98.1, blood pressure 165/78, pulse 78, respirations 20, and O2 sat is 95% on room air. LUNGS: Clear. CARDIAC: Shows regular rhythm. ABDOMEN: Soft and nontender. SKIN/EXTREMITIES: Wound VAC in place. GENITOURINARY: Cortes catheter in place. ASSESSMENT AND PLAN: 1. Resolving left ischial osteomyelitis with vancomycin to finish today and Rocephin to finish tomorrow. 2. Stable cognitive deficits. 3. Stable oral nutrition. 4. Cortes catheter to be changed tomorrow to maintain integrity of wound VAC. Job ID: [id number]
[2018-05-06] MEDS: Fish Oil 1,000 MG CAP PO SCH ×2 (09:19→21:24)
[2018-05-06] MEDS: Nystatin Powder 15 GM BOT TOP SCH ×2 (09:19→21:26)
[2018-05-06] MEDS: Folic Acid 1 MG TAB PO SCH (09:20)
[2018-05-06] MEDS: Naproxen 500 MG TAB PO SCH ×2 (09:20→21:25)
[2018-05-06] MEDS: Potassium Chloride 20 MEQ TAB PO SCH ×2 (09:20→17:32)
[2018-05-06] MEDS: Gabapentin 300 MG CAP PO SCH ×3 (09:20→21:25)
[2018-05-06] MEDS: metroNIDAZOLE 500 MG TAB PO SCH ×3 (09:20→21:25)
[2018-05-06] MEDS: Famotidine 20 MG TAB PO SCH (09:20)
[2018-05-06] MEDS: Saccharomyces boulardii 250 MG CAP PO SCH (09:20)
[2018-05-06] MEDS: Finasteride 5 MG TAB PO SCH (09:21)
[2018-05-06] MEDS: Alogliptin 25 MG TAB PO SCH (09:21)
[2018-05-06] MEDS: Lantus 1000 UNITS/10 ML VIAL SC SCH (09:23)
[2018-05-06] MEDS: Vancomycin HCl 750 MG in Sodium Chloride 0.9% 250 ML 250 ML IVPB SCH (10:26)
[2018-05-06] MEDS: Vancomycin HCl 500 MG in Sodium Chloride 0.9% 100 ML IVPB SCH (10:27)
[2018-05-06] MEDS: HumaLOG 300 UNITS/3 ML VIAL SC PRN ×2 (12:51→17:33)
[2018-05-06] MEDS: cefTRIAXone\\ROCEPHIN 2 GM in Sodium Chloride 0.9% 100 ML IVPB SCH (15:14)
[2018-05-06] MEDS: Rosuvastatin 10 MG TAB PO SCH (21:24)
[2018-05-06] MEDS: Tamsulosin HCl 0.4 MG CAP PO SCH (21:25)
[2018-05-07] MEDS: Valproate Sodium 250 mg/5 ml UD Cup PO SCH ×3 (05:23→21:46)
[2018-05-07] MEDS: Levothyroxine Sodium 100 MCG TAB PO SCH (05:23)
--- NOTE | 2018-05-07 08:34 | PRG ---
DATE OF SERVICE: 05/07/2018 SUBJECTIVE: The patient feels well with no complaints, lying in the bed. He has had IV discontinued. Still has wound VAC in place. OBJECTIVE: VITAL SIGNS: Shows temperature is 98.2, pulse 92, respirations 18, O2 saturations 96% on room air, and blood pressure 136/84. LUNGS: Clear. CARDIAC: Shows regular rhythm. ABDOMEN: Soft and nontender. ASSESSMENT: 1. Resolving left ischial osteomyelitis, off antibiotics with persistent wound VAC. 2. Stable cognitive deficits. PLAN: 1. Transfer to [facility] at [place] today. 2. Change Cortes catheter prior to transfer. Job ID: [id number]
[2018-05-07] MEDS: Alogliptin 25 MG TAB PO SCH (09:45)
[2018-05-07] MEDS: Potassium Chloride 20 MEQ TAB PO SCH ×2 (09:46→17:55)
[2018-05-07] MEDS: Folic Acid 1 MG TAB PO SCH (09:47)
[2018-05-07] MEDS: Finasteride 5 MG TAB PO SCH (09:48)
[2018-05-07] MEDS: Saccharomyces boulardii 250 MG CAP PO SCH (09:48)
[2018-05-07] MEDS: Gabapentin 300 MG CAP PO SCH ×3 (09:48→21:46)
[2018-05-07] MEDS: Famotidine 20 MG TAB PO SCH (09:49)
[2018-05-07] MEDS: Naproxen 500 MG TAB PO SCH ×2 (09:49→21:46)
[2018-05-07] MEDS: Fish Oil 1,000 MG CAP PO SCH ×2 (09:52→21:46)
[2018-05-07] MEDS: Lantus 1000 UNITS/10 ML VIAL SC SCH (09:53)
[2018-05-07] MEDS: Nystatin Powder 15 GM BOT TOP SCH ×2 (09:54→21:47)
[2018-05-07] MEDS: metroNIDAZOLE 500 MG TAB PO SCH (10:39)
[2018-05-07] MEDS: Tamsulosin HCl 0.4 MG CAP PO SCH (21:45)
[2018-05-07] MEDS: Rosuvastatin 10 MG TAB PO SCH (21:46)
[2018-05-08] MEDS: Levothyroxine Sodium 100 MCG TAB PO SCH (05:14)
[2018-05-08] MEDS: Valproate Sodium 250 mg/5 ml UD Cup PO SCH ×3 (05:14→20:09)
[2018-05-08] MEDS: Fish Oil 1,000 MG CAP PO SCH ×2 (08:57→20:08)
[2018-05-08] MEDS: Potassium Chloride 20 MEQ TAB PO SCH ×2 (08:57→16:58)
[2018-05-08] MEDS: Famotidine 20 MG TAB PO SCH (08:57)
[2018-05-08] MEDS: Finasteride 5 MG TAB PO SCH (08:57)
[2018-05-08] MEDS: Saccharomyces boulardii 250 MG CAP PO SCH (08:57)
[2018-05-08] MEDS: Naproxen 500 MG TAB PO SCH ×2 (08:58→20:08)
[2018-05-08] MEDS: Lantus 1000 UNITS/10 ML VIAL SC SCH (08:58)
[2018-05-08] MEDS: Alogliptin 25 MG TAB PO SCH (08:58)
[2018-05-08] MEDS: Folic Acid 1 MG TAB PO SCH (08:58)
[2018-05-08] MEDS: Gabapentin 300 MG CAP PO SCH ×3 (08:58→20:08)
[2018-05-08] MEDS: Nystatin Powder 15 GM BOT TOP SCH ×2 (09:19→20:09)
[2018-05-08] MEDS: HumaLOG 300 UNITS/3 ML VIAL SC PRN (11:45)
[2018-05-08] MEDS: Rosuvastatin 10 MG TAB PO SCH (20:08)
[2018-05-08] MEDS: Tamsulosin HCl 0.4 MG CAP PO SCH (20:09)
[2018-05-09] MEDS: Levothyroxine Sodium 100 MCG TAB PO SCH (05:07)
[2018-05-09] MEDS: Valproate Sodium 250 mg/5 ml UD Cup PO SCH ×3 (05:08→21:21)
[2018-05-09] MEDS: Fish Oil 1,000 MG CAP PO SCH ×2 (08:18→21:22)
[2018-05-09] MEDS: Naproxen 500 MG TAB PO SCH ×2 (08:19→21:22)
[2018-05-09] MEDS: Finasteride 5 MG TAB PO SCH (08:19)
[2018-05-09] MEDS: Potassium Chloride 20 MEQ TAB PO SCH ×2 (08:19→16:45)
[2018-05-09] MEDS: Folic Acid 1 MG TAB PO SCH (08:19)
[2018-05-09] MEDS: Gabapentin 300 MG CAP PO SCH ×3 (08:19→21:22)
[2018-05-09] MEDS: Alogliptin 25 MG TAB PO SCH (08:19)
[2018-05-09] MEDS: Famotidine 20 MG TAB PO SCH (08:19)
[2018-05-09] MEDS: Saccharomyces boulardii 250 MG CAP PO SCH (08:20)
[2018-05-09] MEDS: Lantus 1000 UNITS/10 ML VIAL SC SCH (08:20)
[2018-05-09] MEDS: Nystatin Powder 15 GM BOT TOP SCH ×2 (08:20→21:21)
[2018-05-09] MEDS ORDERED: Sodium Chloride 0.9% 10 ML ONE (12:44)
[2018-05-09] MEDS: HumaLOG 300 UNITS/3 ML VIAL SC PRN (16:45)
--- NOTE | 2018-05-09 18:11 | PRG ---
DATE OF SERVICE: 05/09/2018 SUBJECTIVE: The patient is awake and alert, lying in bed, in no distress, cheerful and has had PICC line removed and is eating well. No complaints of pain. Wound VAC is operating well. OBJECTIVE: VITAL SIGNS: Blood pressure is 143/87, temperature is 97, pulse 74, respirations 18, and O2 sats 96% on room air. LUNGS: Clear. CARDIAC: Shows regular rhythm. ABDOMEN: Soft and nontender. EXTREMITIES: Show no edema, clubbing, or cyanosis. Cortes catheter is in place. Wound VAC is in place. ASSESSMENT: 1. Resolving left ischial osteomyelitis, off antibiotics after 4 weeks and now with wound VAC. 2. Cortes catheter to maintain integrity of wound VAC. 3. Cognitive deficits secondary to unknown mental disorder, stable, with incomplete paraplegia. PLAN: Continue wound VAC. Continue to await placement at the facility. Replace Cortes prior to discharge. Job ID: [id number]
[2018-05-09] MEDS: Tamsulosin HCl 0.4 MG CAP PO SCH (21:21)
[2018-05-09] MEDS: Rosuvastatin 10 MG TAB PO SCH (21:22)
[2018-05-10] MEDS: Valproate Sodium 250 mg/5 ml UD Cup PO SCH ×3 (05:43→21:17)
[2018-05-10] MEDS: Levothyroxine Sodium 100 MCG TAB PO SCH (05:43)
[2018-05-10] MEDS: HumaLOG 300 UNITS/3 ML VIAL SC PRN ×2 (05:47→12:28)
[2018-05-10] MEDS: Saccharomyces boulardii 250 MG CAP PO SCH (08:42)
[2018-05-10] MEDS: Naproxen 500 MG TAB PO SCH ×2 (08:42→21:18)
[2018-05-10] MEDS: Alogliptin 25 MG TAB PO SCH (08:42)
[2018-05-10] MEDS: Gabapentin 300 MG CAP PO SCH ×3 (08:42→21:18)
[2018-05-10] MEDS: Fish Oil 1,000 MG CAP PO SCH ×2 (08:42→21:17)
[2018-05-10] MEDS: Potassium Chloride 20 MEQ TAB PO SCH ×2 (08:42→17:31)
[2018-05-10] MEDS: Finasteride 5 MG TAB PO SCH (08:42)
[2018-05-10] MEDS: Folic Acid 1 MG TAB PO SCH (08:43)
[2018-05-10] MEDS: Famotidine 20 MG TAB PO SCH (08:43)
[2018-05-10] MEDS: Lantus 1000 UNITS/10 ML VIAL SC SCH (08:44)
[2018-05-10] MEDS: Tamsulosin HCl 0.4 MG CAP PO SCH (21:17)
[2018-05-10] MEDS: Rosuvastatin 10 MG TAB PO SCH (21:18)
[2018-05-11] MEDS: Valproate Sodium 250 mg/5 ml UD Cup PO SCH ×3 (05:40→20:48)
[2018-05-11] MEDS: Levothyroxine Sodium 100 MCG TAB PO SCH (05:40)
[2018-05-11] MEDS: Alogliptin 25 MG TAB PO SCH (08:58)
[2018-05-11] MEDS: Potassium Chloride 20 MEQ TAB PO SCH ×2 (08:58→17:03)
[2018-05-11] MEDS: Gabapentin 300 MG CAP PO SCH ×3 (08:58→20:48)
[2018-05-11] MEDS: Folic Acid 1 MG TAB PO SCH (08:58)
[2018-05-11] MEDS: Saccharomyces boulardii 250 MG CAP PO SCH (08:58)
[2018-05-11] MEDS: Fish Oil 1,000 MG CAP PO SCH ×2 (08:59→20:47)
[2018-05-11] MEDS: Lantus 1000 UNITS/10 ML VIAL SC SCH (08:59)
[2018-05-11] MEDS: Naproxen 500 MG TAB PO SCH ×2 (08:59→20:48)
[2018-05-11] MEDS: Finasteride 5 MG TAB PO SCH (08:59)
[2018-05-11] MEDS: Famotidine 20 MG TAB PO SCH (08:59)
[2018-05-11] MEDS: HumaLOG 300 UNITS/3 ML VIAL SC PRN (12:03)
[2018-05-11] MEDS: Tamsulosin HCl 0.4 MG CAP PO SCH (20:48)
[2018-05-11] MEDS: Rosuvastatin 10 MG TAB PO SCH (20:48)
[2018-05-12] MEDS: Levothyroxine Sodium 100 MCG TAB PO SCH (05:46)
[2018-05-12] MEDS: Valproate Sodium 250 mg/5 ml UD Cup PO SCH ×3 (05:46→20:54)
[2018-05-12] MEDS: Potassium Chloride 20 MEQ TAB PO SCH ×2 (08:51→16:23)
[2018-05-12] MEDS: Fish Oil 1,000 MG CAP PO SCH ×2 (08:51→20:54)
[2018-05-12] MEDS: Saccharomyces boulardii 250 MG CAP PO SCH (08:51)
[2018-05-12] MEDS: Lantus 1000 UNITS/10 ML VIAL SC SCH (08:52)
[2018-05-12] MEDS: Naproxen 500 MG TAB PO SCH ×2 (08:52→20:54)
[2018-05-12] MEDS: Gabapentin 300 MG CAP PO SCH ×3 (08:52→20:54)
[2018-05-12] MEDS: Finasteride 5 MG TAB PO SCH (08:52)
[2018-05-12] MEDS: Famotidine 20 MG TAB PO SCH (08:52)
[2018-05-12] MEDS: Folic Acid 1 MG TAB PO SCH (08:52)
[2018-05-12] MEDS: Alogliptin 25 MG TAB PO SCH (08:52)
[2018-05-12] MEDS: HumaLOG 300 UNITS/3 ML VIAL SC PRN ×2 (11:44→16:23)
--- NOTE | 2018-05-12 16:53 | PRG ---
DATE OF SERVICE: 05/12/2018 SUBJECTIVE: Mr. Haro is doing the same from what I saw from two weeks ago. Denies any complaints. No family at bedside. Discussed with nursing. OBJECTIVE: VITAL SIGNS: He is afebrile. Heart rate 91, respirations 20, oxygen saturation 96% on room air, blood pressure 127/81. CARDIOVASCULAR: S1, S2 plus. RESPIRATORY: Normal vesicular breath sounds. ABDOMEN: Soft, nontender. Bowel sounds heard in all quadrants. EXTREMITIES: Without cyanosis, clubbing. Peripheral pulses are palpable. IMPRESSION: 1. Osteomyelitis, ischial area. 2. Seizure disorder. 3. Hypertension. 4. Hypothyroidism. 5. Dyslipidemia. 6. Benign prostatic hypertrophy. PLAN: 1. Continue current medications. 2. Wound care. 3. Nutritional support. 4. DVT and stress ulcer prophylaxis. 5. Decubitus precautions. 6. Monitor blood sugars. 7. Continue IV antibiotics. 8. Discussed with the patient and nursing in detail and all questions answered. Job ID: [id number]
[2018-05-12] MEDS: Tamsulosin HCl 0.4 MG CAP PO SCH (20:54)
[2018-05-12] MEDS: Rosuvastatin 10 MG TAB PO SCH (20:54)
[2018-05-13] MEDS: Valproate Sodium 250 mg/5 ml UD Cup PO SCH ×3 (05:41→20:46)
[2018-05-13] MEDS: Levothyroxine Sodium 100 MCG TAB PO SCH (05:41)
[2018-05-13] MEDS: Fish Oil 1,000 MG CAP PO SCH ×2 (08:50→20:45)
[2018-05-13] MEDS: Folic Acid 1 MG TAB PO SCH (08:50)
[2018-05-13] MEDS: Alogliptin 25 MG TAB PO SCH (08:50)
[2018-05-13] MEDS: Finasteride 5 MG TAB PO SCH (08:50)
[2018-05-13] MEDS: Famotidine 20 MG TAB PO SCH (08:51)
[2018-05-13] MEDS: Potassium Chloride 20 MEQ TAB PO SCH ×2 (08:51→17:38)
[2018-05-13] MEDS: Naproxen 500 MG TAB PO SCH ×2 (08:51→20:45)
[2018-05-13] MEDS: Gabapentin 300 MG CAP PO SCH ×3 (08:51→20:45)
[2018-05-13] MEDS: Saccharomyces boulardii 250 MG CAP PO SCH (08:52)
[2018-05-13] MEDS: Lantus 1000 UNITS/10 ML VIAL SC SCH (08:53)
[2018-05-13] MEDS: HumaLOG 300 UNITS/3 ML VIAL SC PRN (11:21)
--- NOTE | 2018-05-13 17:06 | PRG ---
DATE OF SERVICE: 05/13/2018 SUBJECTIVE: Mr. Haro is doing the same. Denies any complaints, resting comfortably. No family at bedside. Discussed with nursing, remains hard to understand. OBJECTIVE: VITAL SIGNS: He is afebrile, heart rate 85, respirations 18, oxygen saturation 97% on room air, blood pressure 120/73. CARDIOVASCULAR: S1 and S2 plus. RESPIRATORY: Normal vesicular breath sounds. ABDOMEN: Soft, nontender. Bowel sounds heard in all quadrants. EXTREMITIES: Without cyanosis or clubbing. CENTRAL NERVOUS SYSTEM: Generalized weakness. IMPRESSION: 1. Osteomyelitis and ischial ulcer, requiring wound care and long-term antibiotics. 2. Seizure disorder. 3. Hypertension. 4. Hypothyroidism. 5. Dyslipidemia. 6. Benign prostatic hypertrophy. PLAN: 1. Continue current medications and wound care. 2. Nutritional support. 3. DVT and stress ulcer prophylaxis. 4. Decubitus precautions and care. 5. Weekly CBC, CRP, and sedimentation rate. 6. Discussed with the patient and nursing in detail and all questions answered. Job ID: [id number]
[2018-05-13] MEDS: Tamsulosin HCl 0.4 MG CAP PO SCH (20:45)
[2018-05-13] MEDS: Rosuvastatin 10 MG TAB PO SCH (20:46)
[2018-05-14] MEDS: Levothyroxine Sodium 100 MCG TAB PO SCH (05:25)
[2018-05-14] MEDS: Valproate Sodium 250 mg/5 ml UD Cup PO SCH ×3 (05:25→20:52)
[2018-05-14] MEDS: Gabapentin 300 MG CAP PO SCH ×3 (08:16→20:53)
[2018-05-14] MEDS: Folic Acid 1 MG TAB PO SCH (08:17)
[2018-05-14] MEDS: Alogliptin 25 MG TAB PO SCH (08:17)
[2018-05-14] MEDS: Potassium Chloride 20 MEQ TAB PO SCH ×2 (08:17→16:37)
[2018-05-14] MEDS: Fish Oil 1,000 MG CAP PO SCH ×2 (08:17→20:53)
[2018-05-14] MEDS: Famotidine 20 MG TAB PO SCH (08:17)
[2018-05-14] MEDS: Naproxen 500 MG TAB PO SCH ×2 (08:17→20:53)
[2018-05-14] MEDS: Finasteride 5 MG TAB PO SCH (08:17)
[2018-05-14] MEDS: Lantus 1000 UNITS/10 ML VIAL SC SCH (08:19)
[2018-05-14] MEDS: Saccharomyces boulardii 250 MG CAP PO SCH (08:20)
--- NOTE | 2018-05-14 15:41 | PRG ---
DATE OF SERVICE: 05/14/2018 SUBJECTIVE: Mr. Haro is resting comfortably, sleeping, but arousable. No family at bedside. Denies any complaints. Discussed with nursing. OBJECTIVE: VITAL SIGNS: He is afebrile. Heart rate 95, respirations 18, oxygen saturation 100% on room air, blood pressure 119/98. CARDIOVASCULAR: S1 and S2 plus. RESPIRATORY: Normal vesicular breath sounds. ABDOMEN: Soft, nontender. Bowel sounds heard in all quadrants. EXTREMITIES: Without cyanosis or clubbing. IMPRESSION: 1. Osteomyelitis, ischial area with open wound. 2. Seizure disorder. 3. Hypertension. 4. Hypothyroidism. 5. Dyslipidemia. 6. Benign prostatic hypertrophy. PLAN: 1. Continue current medications. 2. Nutritional support. 3. DVT and stress ulcer prophylaxis. 4. Decubitus precautions. 5. CBC, CRP, and sedimentation rate tomorrow. 6. Discussed with the patient and nursing in detail. All questions answered. Job ID: [id number]
[2018-05-14] MEDS: HumaLOG 300 UNITS/3 ML VIAL SC PRN (16:37)
[2018-05-14] MEDS: Rosuvastatin 10 MG TAB PO SCH (20:53)
[2018-05-14] MEDS: Tamsulosin HCl 0.4 MG CAP PO SCH (20:53)
[2018-05-15] MEDS: Levothyroxine Sodium 100 MCG TAB PO SCH (05:19)
[2018-05-15] MEDS: Valproate Sodium 250 mg/5 ml UD Cup PO SCH ×3 (05:19→21:02)
[2018-05-15 05:31] LABS: #Basophils 0.1 thou/uL (0.0-0.2); #Eosinphils 0.2 thou/uL (0.0-0.7); #Lymphocytes 2.7 thou/uL (1.20-3.40); #Monocytes 0.7 thou/uL (0.11-0.59); #Neutrophils 3.2 thou/uL (1.40-6.50); %Basophils 0.9 % (0.0-1.0); %Eosinophils 3.2 % (0.0-10.0); %Lymphocytes 39.6 % (21.0-51.0); %Monocytes 9.8 % (0.0-10.0); %Neutrophils 46.6 % (42.0-75.0); Hemoglobin 12.9 g/dL (14.0-18.0); Hypochromia MODERATE=16-30 cells (100X) (0-5/hpf); MDiff Complete? YES; Mean Corpuscular HGB CONC 30.9 g/dL (32.0-36.0); Mean Corpuscular Volume 80.9 fL (78.0-98.0); Microcytosis MODERATE=15-30 cells (100X) (0-5/hpf); Platelet Count 152 thou/uL (130-400); Platelet Morphology Comment Appears Adequate; RBC Distribution Width 15.4 % (11.5-14.5); Red Blood Cell (RBC) Count 5.15 mill/uL (4.70-6.10); Spherocytes SLIGHT = 1-5 cells (100X) (None Seen); Tear Drops SLIGHT = 2-5 cells (100X) (0-1/hpf); White Blood Cell (WBC) Count 6.8 thou/uL (4.8-10.8)
[2018-05-15 05:48] LABS: ALT (SGPT) 10 U/L (8-55); AST (SGOT) 15 U/L (5-34); Albumin 3.7 g/dL (3.4-4.8); Alkaline Phosphatase 70 U/L (40-150); Anion Gap 13 mmol/L (10-20); BUN (Urea Nitrogen) 14 mg/dL (8.4-25.7); Bilirubin, Total 0.3 mg/dL (0.2-1.2); CRP (Inflammatory) Less than 0.50 mg/dL (= or < 0.5); Calc. Creatinine Clearance 138 mL/min (70-130); Calcium 9.8 mg/dL (7.8-10.44); Carbon Dioxide 26 mmol/L (23-31); Chloride 100 mmol/L (98-107); Estimated GFR-MDRD Greater than 90; Globulin 3.4 g/dL (2.4-3.5); Glucose 113 mg/dL (80-115); Protein, Total 7.1 g/dL (5.8-8.1); Sodium 135 mmol/L (136-145)
[2018-05-15] MEDS: Fish Oil 1,000 MG CAP PO SCH ×2 (08:28→21:02)
[2018-05-15] MEDS: Potassium Chloride 20 MEQ TAB PO SCH ×2 (08:28→16:47)
[2018-05-15] MEDS: Alogliptin 25 MG TAB PO SCH (08:29)
[2018-05-15] MEDS: Finasteride 5 MG TAB PO SCH (08:29)
[2018-05-15] MEDS: Gabapentin 300 MG CAP PO SCH ×3 (08:29→21:02)
[2018-05-15] MEDS: Naproxen 500 MG TAB PO SCH ×2 (08:29→21:02)
[2018-05-15] MEDS: Famotidine 20 MG TAB PO SCH (08:29)
[2018-05-15] MEDS: Folic Acid 1 MG TAB PO SCH (08:29)
[2018-05-15] MEDS: Saccharomyces boulardii 250 MG CAP PO SCH (08:29)
[2018-05-15] MEDS: Lantus 1000 UNITS/10 ML VIAL SC SCH (08:30)
[2018-05-15] MEDS: HumaLOG 300 UNITS/3 ML VIAL SC PRN ×2 (12:29→21:08)
[2018-05-15] MEDS: Tamsulosin HCl 0.4 MG CAP PO SCH (21:02)
[2018-05-15] MEDS: Rosuvastatin 10 MG TAB PO SCH (21:02)
[2018-05-16] MEDS: Valproate Sodium 250 mg/5 ml UD Cup PO SCH ×3 (05:17→21:09)
[2018-05-16] MEDS: Levothyroxine Sodium 100 MCG TAB PO SCH (05:18)
[2018-05-16] MEDS: Naproxen 500 MG TAB PO SCH ×2 (08:49→21:10)
[2018-05-16] MEDS: Saccharomyces boulardii 250 MG CAP PO SCH (08:49)
[2018-05-16] MEDS: Gabapentin 300 MG CAP PO SCH ×3 (08:49→21:10)
[2018-05-16] MEDS: Finasteride 5 MG TAB PO SCH (08:49)
[2018-05-16] MEDS: Alogliptin 25 MG TAB PO SCH (08:49)
[2018-05-16] MEDS: Potassium Chloride 20 MEQ TAB PO SCH ×2 (08:50→16:58)
[2018-05-16] MEDS: Folic Acid 1 MG TAB PO SCH (08:50)
[2018-05-16] MEDS: Lantus 1000 UNITS/10 ML VIAL SC SCH (08:50)
[2018-05-16] MEDS: Famotidine 20 MG TAB PO SCH (08:50)
[2018-05-16] MEDS: Fish Oil 1,000 MG CAP PO SCH ×2 (08:50→21:10)
[2018-05-16] MEDS: HumaLOG 300 UNITS/3 ML VIAL SC PRN ×2 (11:55→16:31)
[2018-05-16] MEDS: Rosuvastatin 10 MG TAB PO SCH (21:10)
[2018-05-16] MEDS: Tamsulosin HCl 0.4 MG CAP PO SCH (21:10)
[2018-05-17] MEDS: Levothyroxine Sodium 100 MCG TAB PO SCH (05:11)
[2018-05-17] MEDS: Valproate Sodium 250 mg/5 ml UD Cup PO SCH ×3 (05:11→21:02)
[2018-05-17] MEDS: Alogliptin 25 MG TAB PO SCH (08:42)
[2018-05-17] MEDS: Finasteride 5 MG TAB PO SCH (08:42)
[2018-05-17] MEDS: Potassium Chloride 20 MEQ TAB PO SCH ×2 (08:42→16:50)
[2018-05-17] MEDS: Gabapentin 300 MG CAP PO SCH ×3 (08:42→21:02)
[2018-05-17] MEDS: Folic Acid 1 MG TAB PO SCH (08:42)
[2018-05-17] MEDS: Fish Oil 1,000 MG CAP PO SCH ×2 (08:42→21:02)
[2018-05-17] MEDS: Naproxen 500 MG TAB PO SCH ×2 (08:42→21:02)
[2018-05-17] MEDS: Famotidine 20 MG TAB PO SCH (08:42)
[2018-05-17] MEDS: Lantus 1000 UNITS/10 ML VIAL SC SCH (08:43)
[2018-05-17] MEDS: Saccharomyces boulardii 250 MG CAP PO SCH (08:43)
[2018-05-17] MEDS: HumaLOG 300 UNITS/3 ML VIAL SC PRN ×2 (11:42→16:50)
--- NOTE | 2018-05-17 13:27 | PRG ---
DATE OF SERVICE: 05/10/2018 SUBJECTIVE: The patient lying in the bed, resting well. No complaints. Off antibiotics. Cortes catheter has been changed. Awaiting placement in a half-way. OBJECTIVE: VITAL SIGNS: Temperature 97.8, pulse 89, respirations 20, O2 sats 98% on room air, and blood pressure 142/86. LUNGS: Clear. CARDIAC: Regular rhythm. ABDOMEN: Soft and nontender. SKIN/EXTREMITIES: No edema, clubbing, or cyanosis. NEUROLOGIC: Diffuse weakness, almost incomplete paralysis of the lower legs. ASSESSMENT: 1. Resolving left ischial osteomyelitis, on wound VAC. 2. Stable cognitive deficits. 3. Stable, severe weakness, incomplete paralysis. 4. Persistent Cortes catheter to maintain integrity of wound VAC. Job ID: [id number]
[2018-05-17] MEDS: Tamsulosin HCl 0.4 MG CAP PO SCH (21:02)
[2018-05-17] MEDS: Rosuvastatin 10 MG TAB PO SCH (21:02)
[2018-05-18] MEDS: Valproate Sodium 250 mg/5 ml UD Cup PO SCH ×3 (05:42→21:02)
[2018-05-18] MEDS: Levothyroxine Sodium 100 MCG TAB PO SCH (05:42)
[2018-05-18] MEDS: Saccharomyces boulardii 250 MG CAP PO SCH (08:51)
[2018-05-18] MEDS: Fish Oil 1,000 MG CAP PO SCH ×2 (08:51→21:02)
[2018-05-18] MEDS: Folic Acid 1 MG TAB PO SCH (08:51)
[2018-05-18] MEDS: Alogliptin 25 MG TAB PO SCH (08:51)
[2018-05-18] MEDS: Naproxen 500 MG TAB PO SCH ×2 (08:51→21:02)
[2018-05-18] MEDS: Famotidine 20 MG TAB PO SCH (08:52)
[2018-05-18] MEDS: Potassium Chloride 20 MEQ TAB PO SCH ×2 (08:52→17:08)
[2018-05-18] MEDS: Gabapentin 300 MG CAP PO SCH ×3 (08:52→21:02)
[2018-05-18] MEDS: Finasteride 5 MG TAB PO SCH (08:52)
[2018-05-18] MEDS: Lantus 1000 UNITS/10 ML VIAL SC SCH (08:52)
[2018-05-18] MEDS: HumaLOG 300 UNITS/3 ML VIAL SC PRN ×2 (11:41→16:38)
[2018-05-18] MEDS: Tamsulosin HCl 0.4 MG CAP PO SCH (21:02)
[2018-05-18] MEDS: Rosuvastatin 10 MG TAB PO SCH (21:02)
[2018-05-19] MEDS: Valproate Sodium 250 mg/5 ml UD Cup PO SCH ×3 (05:27→21:24)
[2018-05-19] MEDS: HumaLOG 300 UNITS/3 ML VIAL SC PRN ×3 (05:27→16:49)
[2018-05-19] MEDS: Levothyroxine Sodium 100 MCG TAB PO SCH (05:27)
[2018-05-19] MEDS: Naproxen 500 MG TAB PO SCH ×2 (08:35→21:25)
[2018-05-19] MEDS: Potassium Chloride 20 MEQ TAB PO SCH ×2 (08:35→17:08)
[2018-05-19] MEDS: Saccharomyces boulardii 250 MG CAP PO SCH (08:35)
[2018-05-19] MEDS: Gabapentin 300 MG CAP PO SCH ×3 (08:35→21:25)
[2018-05-19] MEDS: Fish Oil 1,000 MG CAP PO SCH ×2 (08:36→21:24)
[2018-05-19] MEDS: Folic Acid 1 MG TAB PO SCH (08:36)
[2018-05-19] MEDS: Famotidine 20 MG TAB PO SCH (08:36)
[2018-05-19] MEDS: Alogliptin 25 MG TAB PO SCH (08:36)
[2018-05-19] MEDS: Finasteride 5 MG TAB PO SCH (08:36)
[2018-05-19] MEDS: Lantus 1000 UNITS/10 ML VIAL SC SCH (08:36)
[2018-05-19] MEDS: Tamsulosin HCl 0.4 MG CAP PO SCH (21:24)
[2018-05-19] MEDS: Rosuvastatin 10 MG TAB PO SCH (21:26)
[2018-05-20] MEDS: HumaLOG 300 UNITS/3 ML VIAL SC PRN ×4 (05:41→21:09)
[2018-05-20] MEDS: Valproate Sodium 250 mg/5 ml UD Cup PO SCH ×3 (05:41→21:09)
[2018-05-20] MEDS: Levothyroxine Sodium 100 MCG TAB PO SCH (05:41)
[2018-05-20] MEDS: Gabapentin 300 MG CAP PO SCH ×3 (08:53→21:08)
[2018-05-20] MEDS: Potassium Chloride 20 MEQ TAB PO SCH ×2 (08:53→16:37)
[2018-05-20] MEDS: Famotidine 20 MG TAB PO SCH (08:54)
[2018-05-20] MEDS: Folic Acid 1 MG TAB PO SCH (08:54)
[2018-05-20] MEDS: Lantus 1000 UNITS/10 ML VIAL SC SCH (08:54)
[2018-05-20] MEDS: Naproxen 500 MG TAB PO SCH ×2 (08:54→21:08)
[2018-05-20] MEDS: Alogliptin 25 MG TAB PO SCH (08:54)
[2018-05-20] MEDS: Finasteride 5 MG TAB PO SCH (08:54)
[2018-05-20] MEDS: Fish Oil 1,000 MG CAP PO SCH ×2 (08:54→21:08)
[2018-05-20] MEDS: Saccharomyces boulardii 250 MG CAP PO SCH (08:54)
[2018-05-20] MEDS: Rosuvastatin 10 MG TAB PO SCH (21:08)
[2018-05-20] MEDS: Tamsulosin HCl 0.4 MG CAP PO SCH (21:08)
--- NOTE | 2018-05-20 22:40 | PRG ---
DATE OF SERVICE: 05/16/2018 SUBJECTIVE: The patient is resting well. No complaints. Cortes catheter has been changed. No family at the bedside. Nursing states that there is no new long term acceptance. OBJECTIVE: VITAL SIGNS: Temperature 97.4, pulse 85, respirations 20, O2 sats 97% on room air, blood pressure 100/59. LUNGS: Clear. CARDIAC: Regular rhythm. ABDOMEN: Soft, nontender. Wound VAC is functioning well. ASSESSMENT: 1. Stage IV decubitus, left ischium with wound VAC in place and resolved osteomyelitis. 2. Cognitive deficits, stable with partial paraplegia and inability to maintain ADLs. 3. Cortes catheter required to maintain integrity of wound VAC. PLAN: Await decision and transfer from family to long term. Job ID: [id number]
--- NOTE | 2018-05-20 22:42 | PRG ---
DATE OF SERVICE: 05/17/2018 SUBJECTIVE: Patient lying in bed, resting. No complaints. No change. Awaiting detention acceptance. OBJECTIVE: VITAL SIGNS: Temperature is 97.8, pulse 84, respirations 18, O2 sats 96% on room air, blood pressure 114/68. LUNGS: Clear. CARDIAC: Regular rhythm. ABDOMEN: Soft, nontender. SKIN/EXTREMITIES: Show trace edema. Wound VAC is functioning well. GENITOURINARY: Cortes catheter is in place. ASSESSMENT: 1. Improving stage IV left ischial decubitus with wound VAC. 2. Stable cognitive deficits. 3. Stable severe weakness and incomplete paraplegia. 4. Cortes catheter with no evidence of urinary obstruction in order to maintain wound VAC integrity. Job ID: [id number]
--- NOTE | 2018-05-20 23:09 | PRG ---
DATE OF SERVICE: 05/18/2018 SUBJECTIVE: The patient with no change, lying in bed, resting, awakens, and smiles occasionally. Occasionally answers questions. No distress. OBJECTIVE: VITAL SIGNS: Show him to have a temperature of 98, pulse 87, respirations 20, O2 sats 96% on room air, blood pressure 117/56. LUNGS: Clear. CARDIAC: Regular rhythm. ABDOMEN: Soft and nontender. SKIN/EXTREMITIES: No edema, clubbing, cyanosis. Wound VAC is functioning well in the left ischium. ASSESSMENT AND PLAN: 1. Stage IV left ischial decubitus, improving. 2. Cognitive deficits and partial paraplegia, stable. 3. Malnutrition, improving. 4. Urinary incontinence, requiring Cortes catheter to maintain wound VAC integrity. Job ID: [id number]
--- NOTE | 2018-05-20 23:11 | PRG ---
DATE OF SERVICE: 05/18/2018 SUBJECTIVE: The patient feels well. No complaints. Smiles at the nurses that he likes, but does not talk to physician. OBJECTIVE: VITAL SIGNS: Temperature is 97, respirations 20, pulse 89, O2 sats 98% on room air, blood pressure 117/67. ASSESSMENT: 1. Resolving left ischial stage IV decubitus with wound VAC. 2. Stable cognitive deficits. 3. Severe weakness with partial paraplegia. 4. Incontinence requiring Cortes catheter. PLAN: 1. Continue nutritional support. 2. Continue wound VAC. 3. Await correction placement. Job ID: [id number]
--- NOTE | 2018-05-20 23:13 | PRG ---
DATE OF SERVICE: 05/19/2018 SUBJECTIVE: The patient has no change, lying in bed, resting, awakens, then goes back to sleep, and does not answer questions. OBJECTIVE: VITAL SIGNS: Show temperature is 98, pulse 94, respirations 20, O2 sats 98% on room air, blood pressure 111/65. LUNGS: Clear. CARDIAC: Showed regular rhythm. ABDOMEN: Soft, nontender. SKIN/EXTREMITIES: Displayed no edema, clubbing, or cyanosis. Left ischium wound VAC is in place and functioning well. ASSESSMENT: 1. Stable stage IV left ischial wound with wound VAC in place. 2. Improving nutritional support with persistent weakness, inability to maintain activities of daily living. 3. Cognitive deficits chronically for many years. PLAN: Continue Cortes care. Continue wound VAC. Continue nutritional support. Await [facility]iary placement. Job ID: [id number]
[2018-05-21] MEDS: Levothyroxine Sodium 100 MCG TAB PO SCH (05:21)
[2018-05-21] MEDS: Valproate Sodium 250 mg/5 ml UD Cup PO SCH ×3 (05:21→21:26)
[2018-05-21 05:26] LABS: #Basophils 0.1 thou/uL (0.0-0.2); #Eosinphils 0.3 thou/uL (0.0-0.7); #Lymphocytes 2.5 thou/uL (1.20-3.40); #Monocytes 0.9 thou/uL (0.11-0.59); #Neutrophils 4.5 thou/uL (1.40-6.50); %Basophils 0.8 % (0.0-1.0); %Eosinophils 3.1 % (0.0-10.0); %Monocytes 10.5 % (0.0-10.0); %Neutrophils 54.6 % (42.0-75.0); Hemoglobin 13.2 g/dL (14.0-18.0); Hypochromia MODERATE=16-30 cells (100X) (0-5/hpf); MDiff Complete? YES; Mean Corpuscular HGB CONC 30.8 g/dL (32.0-36.0); Mean Corpuscular Hemoglobin 24.5 pg (27.0-31.0); Mean Corpuscular Volume 79.3 fL (78.0-98.0); Mean Platelet Volume 7.9 fL (7.4-10.4); Microcytosis SLIGHT = 6-15 cells (100X) (0-5/hpf); Ovalocytes SLIGHT = 2-5 cells (100X) (0-1/hpf); Platelet Count 151 thou/uL (130-400); Platelet Morphology Comment Appears Adequate; RBC Distribution Width 14.7 % (11.5-14.5); Red Blood Cell (RBC) Count 5.38 mill/uL (4.70-6.10); White Blood Cell (WBC) Count 8.2 thou/uL (4.8-10.8)
[2018-05-21] MEDS: Potassium Chloride 20 MEQ TAB PO SCH ×2 (09:05→17:56)
[2018-05-21] MEDS: Alogliptin 25 MG TAB PO SCH (09:05)
[2018-05-21] MEDS: Folic Acid 1 MG TAB PO SCH (09:06)
[2018-05-21] MEDS: Naproxen 500 MG TAB PO SCH ×2 (09:06→21:26)
[2018-05-21] MEDS: Gabapentin 300 MG CAP PO SCH ×3 (09:08→21:25)
[2018-05-21] MEDS: Famotidine 20 MG TAB PO SCH (09:08)
[2018-05-21] MEDS: Fish Oil 1,000 MG CAP PO SCH ×2 (09:09→21:26)
[2018-05-21] MEDS: Finasteride 5 MG TAB PO SCH (09:10)
[2018-05-21] MEDS: Saccharomyces boulardii 250 MG CAP PO SCH (09:22)
[2018-05-21] MEDS: Lantus 1000 UNITS/10 ML VIAL SC SCH (09:22)
[2018-05-21] MEDS: HumaLOG 300 UNITS/3 ML VIAL SC PRN ×2 (12:56→21:33)
--- NOTE | 2018-05-21 20:15 | PRG ---
DATE OF SERVICE: 05/20/2018 MEDICAL PROGRESS NOTE SUBJECTIVE: The patient is lying in bed, resting well with no complaints of shortness of breath or chest pain. OBJECTIVE: VITAL SIGNS: His blood pressure is 131/66, pulse is 92, respirations 20, O2 sats 94% on room air, temperature 97.1. LUNGS: Clear. CARDIAC: Regular rhythm. ABDOMEN: Soft and nontender. SKIN/EXTREMITIES: Wound VAC functioning well in the left ischium. ASSESSMENT: 1. Resolving stage IV decubitus, left ischium. 2. Stable cognitive deficits. 3. Stable incomplete paraplegia. PLAN: Continue with wound care. Await assessment at [facility] accepted to transfer. Job ID: [id number]
[2018-05-21] MEDS: Rosuvastatin 10 MG TAB PO SCH (21:25)
[2018-05-21] MEDS: Tamsulosin HCl 0.4 MG CAP PO SCH (21:26)
[2018-05-22] MEDS: Levothyroxine Sodium 100 MCG TAB PO SCH (05:29)
[2018-05-22] MEDS: Valproate Sodium 250 mg/5 ml UD Cup PO SCH ×3 (05:29→21:32)
[2018-05-22] MEDS: HumaLOG 300 UNITS/3 ML VIAL SC PRN ×4 (05:33→21:35)
[2018-05-22] MEDS: Famotidine 20 MG TAB PO SCH (09:06)
[2018-05-22] MEDS: Alogliptin 25 MG TAB PO SCH (09:06)
[2018-05-22] MEDS: Finasteride 5 MG TAB PO SCH (09:07)
[2018-05-22] MEDS: Folic Acid 1 MG TAB PO SCH (09:07)
[2018-05-22] MEDS: Fish Oil 1,000 MG CAP PO SCH ×2 (09:07→21:32)
[2018-05-22] MEDS: Potassium Chloride 20 MEQ TAB PO SCH ×2 (09:07→17:24)
[2018-05-22] MEDS: Saccharomyces boulardii 250 MG CAP PO SCH (09:07)
[2018-05-22] MEDS: Naproxen 500 MG TAB PO SCH ×2 (09:07→21:32)
[2018-05-22] MEDS: Gabapentin 300 MG CAP PO SCH ×3 (09:07→21:32)
[2018-05-22] MEDS: Lantus 1000 UNITS/10 ML VIAL SC SCH (09:08)
[2018-05-22] MEDS: Rosuvastatin 10 MG TAB PO SCH (21:32)
[2018-05-22] MEDS: Tamsulosin HCl 0.4 MG CAP PO SCH (21:32)
[2018-05-23] MEDS: Valproate Sodium 250 mg/5 ml UD Cup PO SCH ×3 (06:13→21:25)
[2018-05-23] MEDS: Levothyroxine Sodium 100 MCG TAB PO SCH (06:13)
[2018-05-23] MEDS: HumaLOG 300 UNITS/3 ML VIAL SC PRN ×2 (06:13→17:01)
--- NOTE | 2018-05-23 08:02 | PRG ---
DATE OF SERVICE: 05/21/2018 MEDICAL PROGRESS NOTE SUBJECTIVE: The patient is lying in the bed, awake, responsive to medical therapy, and conversing with physician with no complaints. OBJECTIVE: VITAL SIGNS: Show his temperature is 97.7, pulse 85, respiratory rate is 20, O2 sat is 98% on room air, blood pressure 154/80. LUNGS: Clear. CARDIAC: Show regular rhythm. ABDOMEN: Soft and nontender. SKIN/EXTREMITIES: Display no edema, clubbing, or cyanosis. There is a wound VAC in place in the left ischium. NEUROLOGIC: Shows almost complete paralysis of legs and the patient is only oriented to person. ASSESSMENT: 1. Resolving stage IV decubitus of the left ischium. 2. Stable cognitive deficits of unknown etiology. 3. Stable incomplete paraplegia and severe deconditioning of unknown . PLAN: Continue supportive care. Continue wound VAC. Await acceptance at [facility]. Job ID: [id number]
--- NOTE | 2018-05-23 08:44 | PRG ---
DATE OF SERVICE: 05/22/2018 SUBJECTIVE: The patient feels well with no complaints, resting well. OBJECTIVE: VITAL SIGNS: Temperature is 98.2, pulse 87, respirations 18, O2 sat is 96% on room air, and blood pressure 119/82. LUNGS: Clear. CARDIAC: Regular rhythm. ABDOMEN: Soft and nontender. ASSESSMENT: 1. Resolving left ischial stage IV decubitus, on wound VAC. 2. Stable cognitive deficits. 3. Stable partial incomplete paraplegia. PLAN: Transfer to [facility] tomorrow if accepted in the a.m. Job ID: [id number]
[2018-05-23] MEDS: Saccharomyces boulardii 250 MG CAP PO SCH (09:06)
[2018-05-23] MEDS: Potassium Chloride 20 MEQ TAB PO SCH ×2 (09:06→17:01)
[2018-05-23] MEDS: Fish Oil 1,000 MG CAP PO SCH ×2 (09:07→21:26)
[2018-05-23] MEDS: Finasteride 5 MG TAB PO SCH (09:07)
[2018-05-23] MEDS: Famotidine 20 MG TAB PO SCH (09:07)
[2018-05-23] MEDS: Naproxen 500 MG TAB PO SCH ×2 (09:07→21:25)
[2018-05-23] MEDS: Lantus 1000 UNITS/10 ML VIAL SC SCH (09:07)
[2018-05-23] MEDS: Alogliptin 25 MG TAB PO SCH (09:07)
[2018-05-23] MEDS: Gabapentin 300 MG CAP PO SCH ×3 (09:07→21:26)
[2018-05-23] MEDS: Folic Acid 1 MG TAB PO SCH (09:08)
[2018-05-23] MEDS ORDERED: Dextrose 5% in Water 1,000 ML IV PRN (15:43)
[2018-05-23] MEDS ORDERED: Dextrose 50% Abboject 50 ML SYRINGE SLOW IVP PRN (15:43)
[2018-05-23] MEDS: Tamsulosin HCl 0.4 MG CAP PO SCH (21:26)
[2018-05-23] MEDS: Rosuvastatin 10 MG TAB PO SCH (21:27)
[2018-05-24] MEDS: Levothyroxine Sodium 100 MCG TAB PO SCH (06:11)
[2018-05-24] MEDS: Valproate Sodium 250 mg/5 ml UD Cup PO SCH ×3 (06:11→21:02)
[2018-05-24] MEDS: Potassium Chloride 20 MEQ TAB PO SCH ×2 (08:59→17:26)
[2018-05-24] MEDS ORDERED: Lantus 1000 UNITS/10 ML VIAL SC SCH (09:00)
[2018-05-24] MEDS: Finasteride 5 MG TAB PO SCH (09:02)
[2018-05-24] MEDS: Fish Oil 1,000 MG CAP PO SCH ×2 (09:02→21:01)
[2018-05-24] MEDS: Alogliptin 25 MG TAB PO SCH (09:02)
[2018-05-24] MEDS: Gabapentin 300 MG CAP PO SCH ×3 (09:02→21:01)
[2018-05-24] MEDS: Naproxen 500 MG TAB PO SCH ×2 (09:02→21:03)
[2018-05-24] MEDS: Saccharomyces boulardii 250 MG CAP PO SCH (09:02)
[2018-05-24] MEDS: Famotidine 20 MG TAB PO SCH (09:03)
[2018-05-24] MEDS: Folic Acid 1 MG TAB PO SCH (09:03)
[2018-05-24] MEDS: HumaLOG 300 UNITS/3 ML VIAL SC PRN ×3 (12:06→21:03)
[2018-05-24] MEDS: Rosuvastatin 10 MG TAB PO SCH (21:02)
[2018-05-24] MEDS: Tamsulosin HCl 0.4 MG CAP PO SCH (21:02)
[2018-05-25 05:11] LABS: #Basophils 0.1 thou/uL (0.0-0.2); #Eosinphils 0.2 thou/uL (0.0-0.7); #Lymphocytes 2.4 thou/uL (1.20-3.40); #Monocytes 0.9 thou/uL (0.11-0.59); #Neutrophils 3.6 thou/uL (1.40-6.50); %Basophils 1.2 % (0.0-1.0); %Eosinophils 3.2 % (0.0-10.0); %Lymphocytes 33.7 % (21.0-51.0); %Monocytes 12.6 % (0.0-10.0); %Neutrophils 49.3 % (42.0-75.0); Hemoglobin 12.2 g/dL (14.0-18.0); Mean Corpuscular HGB CONC 31.6 g/dL (32.0-36.0); Mean Corpuscular Hemoglobin 25.1 pg (27.0-31.0); Mean Corpuscular Volume 79.6 fL (78.0-98.0); Mean Platelet Volume 7.4 fL (7.4-10.4); Platelet Count 120 thou/uL (130-400); RBC Distribution Width 14.8 % (11.5-14.5); Red Blood Cell (RBC) Count 4.84 mill/uL (4.70-6.10); White Blood Cell (WBC) Count 7.2 thou/uL (4.8-10.8)
[2018-05-25] MEDS: Levothyroxine Sodium 100 MCG TAB PO SCH (05:15)
[2018-05-25] MEDS: HumaLOG 300 UNITS/3 ML VIAL SC PRN ×3 (05:16→17:53)
[2018-05-25] MEDS: Valproate Sodium 250 mg/5 ml UD Cup PO SCH ×3 (05:16→21:55)
[2018-05-25] MEDS: Naproxen 500 MG TAB PO SCH ×2 (08:54→21:55)
[2018-05-25] MEDS: Potassium Chloride 20 MEQ TAB PO SCH ×2 (08:54→17:53)
[2018-05-25] MEDS: Folic Acid 1 MG TAB PO SCH (08:54)
[2018-05-25] MEDS: Alogliptin 25 MG TAB PO SCH (08:54)
[2018-05-25] MEDS: Finasteride 5 MG TAB PO SCH (08:54)
[2018-05-25] MEDS: Gabapentin 300 MG CAP PO SCH ×3 (08:54→21:55)
[2018-05-25] MEDS: Famotidine 20 MG TAB PO SCH (08:54)
[2018-05-25] MEDS: Fish Oil 1,000 MG CAP PO SCH ×2 (08:54→21:55)
[2018-05-25] MEDS: Saccharomyces boulardii 250 MG CAP PO SCH (08:55)
[2018-05-25] MEDS: Lantus 1000 UNITS/10 ML VIAL SC SCH (09:06)
[2018-05-25] MEDS: cefTRIAXone\\ROCEPHIN 1 GM in Sodium Chloride 0.9% 100 ML IVPB SCH (15:43)
[2018-05-25] MEDS: metroNIDAZOLE 500 MG TAB PO SCH ×2 (15:46→22:02)
[2018-05-25] MEDS: Vancomycin HCl 1 GM in Sodium Chloride 0.9% 250 ML 250 ML IVPB SCH (21:54)
[2018-05-25] MEDS: Rosuvastatin 10 MG TAB PO SCH (21:55)
[2018-05-25] MEDS: Tamsulosin HCl 0.4 MG CAP PO SCH (21:55)
[2018-05-26] MEDS: Levothyroxine Sodium 100 MCG TAB PO SCH (05:53)
[2018-05-26] MEDS: Valproate Sodium 250 mg/5 ml UD Cup PO SCH ×3 (05:53→21:27)
[2018-05-26] MEDS: HumaLOG 300 UNITS/3 ML VIAL SC PRN ×4 (05:59→21:51)
[2018-05-26] MEDS: Naproxen 500 MG TAB PO SCH ×2 (09:11→21:28)
[2018-05-26] MEDS: Saccharomyces boulardii 250 MG CAP PO SCH (09:11)
[2018-05-26] MEDS: Finasteride 5 MG TAB PO SCH (09:11)
[2018-05-26] MEDS: Alogliptin 25 MG TAB PO SCH (09:11)
[2018-05-26] MEDS: Potassium Chloride 20 MEQ TAB PO SCH ×2 (09:11→16:38)
[2018-05-26] MEDS: Folic Acid 1 MG TAB PO SCH (09:12)
[2018-05-26] MEDS: Gabapentin 300 MG CAP PO SCH ×3 (09:12→21:28)
[2018-05-26] MEDS: Vancomycin HCl 1 GM in Sodium Chloride 0.9% 250 ML 250 ML IVPB SCH ×2 (09:12→21:28)
[2018-05-26] MEDS: Fish Oil 1,000 MG CAP PO SCH ×2 (09:12→21:27)
[2018-05-26] MEDS: metroNIDAZOLE 500 MG TAB PO SCH ×3 (09:12→21:28)
[2018-05-26] MEDS: Famotidine 20 MG TAB PO SCH (09:12)
[2018-05-26] MEDS: Lantus 1000 UNITS/10 ML VIAL SC SCH (09:13)
--- NOTE | 2018-05-26 09:26 | PRG ---
DATE OF SERVICE: 05/26/2018 Mr. Haro is a 62-year-old white male, who developed a bad urinary tract infection with sepsis, bacteremia, and E. coli. He had osteomyelitis of the last sacral area, which was positive on bone scan. He was started on vancomycin, Rocephin, and Flagyl. He continues to be in the hospital for IV antibiotics. SUBJECTIVE: The patient states he is doing well. Sugars yesterday were 186, 183, 185, and 196. His labs on Monday were good. He states he has no complaints today. OBJECTIVE: VITAL SIGNS: Reveal blood pressure 107/69, pulse 92 to 93, respirations 18 to 21, O2 saturations 93% to 97% on room air, and T-max 98.1. GENERAL: This is a well-developed, well-nourished, slightly obese white male without any complaints today. HEENT: Reveals normocephalic and nontraumatic cranium. Pupils are equally round and reactive. Extraocular movements are intact. Nose and throat are moist. NECK: Supple without masses, nodes, or bruits. CHEST: Clear to auscultation. No rales, rhonchi, or wheezes are heard. No cough is noted. HEART: Reveals a regular rate and rhythm. No murmurs, gallops, rubs. ABDOMEN: Obese, soft, nontender without organomegaly. Normal bowel sounds are noted in all four quadrants. No rebound or guarding is noted. : Exam is deferred. EXTREMITIES: Reveal no clubbing, cyanosis, or edema. The patient complains of no pain today. ASSESSMENT: 1. Recent urinary tract infection, much improved. 2. Left ischial osteomyelitis. 3. Cognitive deficits. 4. Diabetes out of control, which continues to be improved. 5. Cortes catheter in place. 6. Wound VAC. PLAN: 1. Continue present antibiotic regimen. 2. Continue to monitor the patient's diabetes with Accu-Cheks before meals and at bedtime. 3. Continue supportive care. Job ID: [id number]
--- NOTE | 2018-05-26 09:45 | PRG ---
DATE OF SERVICE: 05/23/2018 SUBJECTIVE: The patient is preparing for discharge to [facility], where he has been accepted for continued care of his stage 4 decubitus with wound VAC. The patient is asymptomatic and has no complaints, but does have cognitive deficits. OBJECTIVE: VITAL SIGNS: Shows temperature is 97.9, pulse is 84, respirations 20, O2 sats 93% on room air, blood pressure 112/66. LUNGS: Clear. CARDIAC: Showed regular rhythm. ABDOMEN: Soft and nontender. Wound VAC is in place, functioning well. ASSESSMENT: 1. Persistent stage 4 decubitus with wound VAC. 2. Stable cognitive deficits. 3. Stable incomplete paraplegia. PLAN: Transfer to [facility] under the care of medical office worker. Job ID: [id number]
--- NOTE | 2018-05-26 09:49 | PRG ---
DATE OF SERVICE: 05/24/2018 SUBJECTIVE: The patient is alert, in no distress, but has returned to the skilled unit. There has not been an accepting physician at the retirement at this time. He has been noticed to have some slightly increasing sugars, but has had no nausea, vomiting, fevers, chills, or evidence of pain. OBJECTIVE: VITAL SIGNS: Temperature is 96.5, pulse 90, respirations 20, O2 saturations 98% on room air, blood pressure 105/72. LUNGS: Clear. CARDIAC: Regular rhythm. ABDOMEN: Soft and nontender. ASSESSMENT: 1. Persistent stage IV decubitus with wound VAC. 2. Persistent cognitive deficits. 3. Persistent incomplete paraplegia. PLAN: Continue wound VAC until retirement acceptance. Job ID: [id number]
[2018-05-26] MEDS: cefTRIAXone\\ROCEPHIN 1 GM in Sodium Chloride 0.9% 100 ML IVPB SCH (14:39)
--- NOTE | 2018-05-26 14:52 | PRG ---
DATE OF SERVICE: 05/25/2018 SUBJECTIVE: The patient is an unfortunate 62-year-old white male with a history of cognitive deficits, incomplete paraplegia, and a subsequent left ischial osteomyelitis under a stage IV decubitus, which was treated aggressively with wound VAC and with long-term antibiotics with improvement in his wound, but has been off his antibiotics for the last 2 weeks and had noticed increasing slough, decreasing granulation tissue in the wound. The patient has also been found to have increasing serum glucose. OBJECTIVE: VITAL SIGNS: Pulse is 93, respirations 21, O2 sats 93% on room air, and blood pressure 117/81. is requesting a wound care physician consult as the wound is as above showing more slough. White count is still normal at 7200, hematocrit 38, hemoglobin 12, sedimentation rate has begun to increase up to 63 from a low of 54. His Accu-Cheks as mentioned above have also begun to increase and ranging 200 at this time despite being on a sliding scale insulin. CRP has also increased from less than 0.5 after stopping antibiotics to 2.05 at this time. ASSESSMENT: 1. Possible recurrent osteomyelitis or at least recurrent infection stage IV decubitus with lack of progression of healing. 2. Diabetes with decreasing control. 3. Incomplete paraplegia making the patient unable to ambulate. 4. Cognitive deficits. PLAN: Restart vancomycin and Rocephin and consult Dr. Cortes, Wound Care. Continue sliding scale. Job ID: [id number]
[2018-05-26] MEDS: Rosuvastatin 10 MG TAB PO SCH (21:28)
[2018-05-26] MEDS: Tamsulosin HCl 0.4 MG CAP PO SCH (21:28)
[2018-05-27] MEDS: Levothyroxine Sodium 100 MCG TAB PO SCH (05:47)
[2018-05-27] MEDS: Valproate Sodium 250 mg/5 ml UD Cup PO SCH ×3 (05:47→20:42)
[2018-05-27] MEDS: HumaLOG 300 UNITS/3 ML VIAL SC PRN ×4 (05:55→20:43)
--- NOTE | 2018-05-27 08:41 | PRG ---
DATE OF SERVICE: 05/27/2018 SUBJECTIVE: Mr. Haro is a 62-year-old white male who developed a bad urinary tract infection with sepsis, bacteremia. He had E. coli and was treated. He developed osteomyelitis of the lumbosacral area, which was positive on bone scan. He was started on vancomycin, Rocephin and Flagyl, and continues in the hospital on IV antibiotics. Subjectively, the patient states he has no complaints today. His sugars are somewhat more elevated. We did increase his insulins today. Labs on Monday were good. The patient states he is doing well and has no complaints this morning. OBJECTIVE: VITAL SIGNS: Today, reveal blood pressure of 113/63, pulse 75 to 82 , respirations 20, O2 saturation 94% to 98% on room air, and T-max 97.7. GENERAL: This is a well-developed, well-nourished, very pleasant white male, in no apparent distress. HEENT: Reveals normocephalic, nontraumatic cranium. Pupils are equally round and reactive. Extraocular movements are intact. Nose and throat are slightly dry. NECK: Supple without masses, nodes or bruits. CHEST: Clear to auscultation. No rales, rhonchi, wheezes, or cough is heard. HEART: Reveals a regular rate and rhythm without murmurs, gallops, or rubs. ABDOMEN: Obese, soft, nontender without organomegaly. Normal bowel sounds are noted. No rebound or guarding is noted. : Exam is deferred. EXTREMITIES: Reveal no clubbing, cyanosis, or edema. The patient has no complaints of pain again today. ASSESSMENT: 1. Recent urinary tract infection, much improved. 2. Left ischial osteomyelitis. 3. Cognitive deficits. 4. Diabetes, out of control. We did increase his insulin dosing. 5. Cortes catheter in place. 6. Wound VAC. PLAN: 1. Continue present antibiotic regimen. 2. Continue to monitor the patient's diabetes with Accu-Cheks before meals and at bedtime. 3. Increase long acting and sliding scale insulin. 4. Continue supportive care. Job ID: [id number] [facility]
[2018-05-27] MEDS: Finasteride 5 MG TAB PO SCH (08:44)
[2018-05-27] MEDS: Fish Oil 1,000 MG CAP PO SCH ×2 (08:44→20:42)
[2018-05-27] MEDS: Gabapentin 300 MG CAP PO SCH ×3 (08:44→20:42)
[2018-05-27] MEDS: Famotidine 20 MG TAB PO SCH (08:44)
[2018-05-27] MEDS: Saccharomyces boulardii 250 MG CAP PO SCH (08:44)
[2018-05-27] MEDS: Folic Acid 1 MG TAB PO SCH (08:44)
[2018-05-27] MEDS: Potassium Chloride 20 MEQ TAB PO SCH ×2 (08:44→17:33)
[2018-05-27] MEDS: metroNIDAZOLE 500 MG TAB PO SCH ×3 (08:44→20:42)
[2018-05-27] MEDS: Naproxen 500 MG TAB PO SCH ×2 (08:44→20:42)
[2018-05-27] MEDS: Alogliptin 25 MG TAB PO SCH (08:44)
[2018-05-27] MEDS: Vancomycin HCl 1 GM in Sodium Chloride 0.9% 250 ML 250 ML IVPB SCH ×2 (08:45→20:41)
[2018-05-27] MEDS: Lantus 1000 UNITS/10 ML VIAL SC SCH (08:48)
[2018-05-27] MEDS: cefTRIAXone\\ROCEPHIN 1 GM in Sodium Chloride 0.9% 100 ML IVPB SCH (14:39)
[2018-05-27] MEDS: Rosuvastatin 10 MG TAB PO SCH (20:42)
[2018-05-27] MEDS: Tamsulosin HCl 0.4 MG CAP PO SCH (20:42)
[2018-05-28] MEDS: Valproate Sodium 250 mg/5 ml UD Cup PO SCH ×3 (06:03→20:53)
[2018-05-28] MEDS: Levothyroxine Sodium 100 MCG TAB PO SCH (06:03)
[2018-05-28] MEDS: HumaLOG 300 UNITS/3 ML VIAL SC PRN ×4 (06:10→20:55)
[2018-05-28] MEDS: Saccharomyces boulardii 250 MG CAP PO SCH (08:16)
[2018-05-28] MEDS: Lantus 1000 UNITS/10 ML VIAL SC SCH (08:16)
[2018-05-28] MEDS: Finasteride 5 MG TAB PO SCH (08:16)
[2018-05-28] MEDS: Famotidine 20 MG TAB PO SCH (08:16)
[2018-05-28] MEDS: Fish Oil 1,000 MG CAP PO SCH ×2 (08:17→20:53)
[2018-05-28] MEDS: Vancomycin HCl 1 GM in Sodium Chloride 0.9% 250 ML 250 ML IVPB SCH ×2 (08:17→20:52)
[2018-05-28] MEDS: Gabapentin 300 MG CAP PO SCH ×3 (08:17→20:53)
[2018-05-28] MEDS: Potassium Chloride 20 MEQ TAB PO SCH ×2 (08:17→16:57)
[2018-05-28] MEDS: metroNIDAZOLE 500 MG TAB PO SCH ×3 (08:17→20:53)
[2018-05-28] MEDS: Folic Acid 1 MG TAB PO SCH (08:17)
[2018-05-28] MEDS: Alogliptin 25 MG TAB PO SCH (08:17)
[2018-05-28] MEDS: Naproxen 500 MG TAB PO SCH ×2 (08:17→20:53)
[2018-05-28] MEDS: cefTRIAXone\\ROCEPHIN 1 GM in Sodium Chloride 0.9% 100 ML IVPB SCH (14:41)
--- NOTE | 2018-05-28 19:56 | PRG ---
DATE OF SERVICE: 05/28/2018 SUBJECTIVE: The patient feels well. No complaints. Awake and alert, eating well. OBJECTIVE: VITAL SIGNS: Shows, however, his temperature is still 97.6, pulse 88, respirations 20, O2 saturation is 96% on room air, and blood pressure 121/75. LABORATORY DATA: Urine is getting more hazy and we will repeat. Accu-Cheks still showing elevated sugars, 170 to 236. ASSESSMENT: Persistent signs of inflammation of stage IV decubitus and possibly recurrent osteomyelitis and increased dehydration. PLAN: 1. Continue Rocephin, vancomycin, and Flagyl. 2. Increase Levemir to 35 units. 3. Repeat CBC, comprehensive metabolic profile, CRP, and sedimentation rate in the a.m. Job ID: [id number]
[2018-05-28] MEDS: Tamsulosin HCl 0.4 MG CAP PO SCH (20:53)
[2018-05-28] MEDS: Rosuvastatin 10 MG TAB PO SCH (20:53)
[2018-05-29 05:29] LABS: #Basophils 0.1 thou/uL (0.0-0.2); #Eosinphils 0.3 thou/uL (0.0-0.7); #Lymphocytes 2.2 thou/uL (1.20-3.40); #Monocytes 0.8 thou/uL (0.11-0.59); %Basophils 1.1 % (0.0-1.0); %Eosinophils 4.1 % (0.0-10.0); %Lymphocytes 29.7 % (21.0-51.0); %Monocytes 10.9 % (0.0-10.0); %Neutrophils 54.4 % (42.0-75.0); Hemoglobin 11.4 g/dL (14.0-18.0); Mean Corpuscular HGB CONC 32.5 g/dL (32.0-36.0); Mean Corpuscular Hemoglobin 25.5 pg (27.0-31.0); Mean Corpuscular Volume 78.4 fL (78.0-98.0); Mean Platelet Volume 6.8 fL (7.4-10.4); Platelet Count 135 thou/uL (130-400); RBC Distribution Width 14.7 % (11.5-14.5); Red Blood Cell (RBC) Count 4.49 mill/uL (4.70-6.10); White Blood Cell (WBC) Count 7.4 thou/uL (4.8-10.8)
[2018-05-29 05:37] LABS: Bilirubin Negative (Negative); Blood, Urine Small (Negative); Clarity Cloudy (Clear); Glucose, Urine (Dipstick) Negative (Negative); Leukocyte Small (Negative); Nitrite Negative (Negative); Protein, Urine (Dipstick) Negative (Neg-Trace); Urobilinogen 0.2 mg/dL (0.2-1.0); pH, Urine 5.5 (5.0-9.0)
[2018-05-29 05:41] LABS: Specific Gravity, Urine 1.021 (1.002-1.036)
[2018-05-29 05:43] LABS: Bacteria/HPF 1+ HPF (None Seen)
[2018-05-29 05:44] LABS: Yeast-All Forms 3+ HPF (None Seen)
[2018-05-29 05:50] LABS: ALT (SGPT) 7 U/L (8-55); AST (SGOT) 11 U/L (5-34); Albumin 3.2 g/dL (3.4-4.8); Alkaline Phosphatase 72 U/L (40-150); Anion Gap 12 mmol/L (10-20); BUN (Urea Nitrogen) 9 mg/dL (8.4-25.7); Bilirubin, Total 0.2 mg/dL (0.2-1.2); CRP (Inflammatory) 2.05 mg/dL (= or < 0.5); Calc. Creatinine Clearance 134 mL/min (70-130); Calcium 9.3 mg/dL (7.8-10.44); Carbon Dioxide 28 mmol/L (23-31); Chloride 101 mmol/L (98-107); Estimated GFR-MDRD Greater than 90; Globulin 2.9 g/dL (2.4-3.5); Glucose 147 mg/dL (80-115); Potassium 4.4 mmol/L (3.5-5.1); Protein, Total 6.1 g/dL (5.8-8.1); Sodium 137 mmol/L (136-145)
[2018-05-29 05:52] LABS: Vancomycin, Trough 19.9 ug/mL
[2018-05-29] MEDS: Levothyroxine Sodium 100 MCG TAB PO SCH (05:55)
[2018-05-29] MEDS: Valproate Sodium 250 mg/5 ml UD Cup PO SCH ×3 (05:55→21:02)
[2018-05-29] MEDS: Potassium Chloride 20 MEQ TAB PO SCH ×2 (08:59→16:48)
[2018-05-29] MEDS: Vancomycin HCl 1 GM in Sodium Chloride 0.9% 250 ML 250 ML IVPB SCH ×2 (09:03→21:02)
[2018-05-29] MEDS: Saccharomyces boulardii 250 MG CAP PO SCH (09:04)
[2018-05-29] MEDS: metroNIDAZOLE 500 MG TAB PO SCH ×3 (09:04→21:03)
[2018-05-29] MEDS: Folic Acid 1 MG TAB PO SCH (09:04)
[2018-05-29] MEDS: Famotidine 20 MG TAB PO SCH (09:05)
[2018-05-29] MEDS: Naproxen 500 MG TAB PO SCH ×2 (09:05→21:03)
[2018-05-29] MEDS: Alogliptin 25 MG TAB PO SCH (09:05)
[2018-05-29] MEDS: Lantus 1000 UNITS/10 ML VIAL SC SCH (09:05)
[2018-05-29] MEDS: Finasteride 5 MG TAB PO SCH (09:05)
[2018-05-29] MEDS: Gabapentin 300 MG CAP PO SCH ×3 (09:05→21:03)
[2018-05-29] MEDS: Fish Oil 1,000 MG CAP PO SCH ×2 (09:05→21:03)
[2018-05-29] MEDS: HumaLOG 300 UNITS/3 ML VIAL SC PRN ×2 (11:26→16:48)
[2018-05-29] MEDS ORDERED: Sodium Chloride 0.9% 20 ML ONE (14:37)
[2018-05-29] MEDS: cefTRIAXone\\ROCEPHIN 1 GM in Sodium Chloride 0.9% 100 ML IVPB SCH (14:50)
--- NOTE | 2018-05-29 17:55 | PRG ---
DATE OF SERVICE: 05/29/2018 SUBJECTIVE: The patient feels well, lying in bed, laughing, teasing with nurses, in no distress. Eating very well. Still confused. OBJECTIVE: VITAL SIGNS: Blood pressure is 132/62, temperature 96, pulse 98, respirations 18, O2 saturations 95% on room air. LUNGS: Clear. CARDIAC: Regular rhythm. ABDOMEN: Soft and nontender. SKIN/EXTREMITIES: No edema. LABORATORY DATA: White count 7400, hematocrit 35, hemoglobin 11. Sed rate is going up to 73, however. C-reactive protein is still elevated . Sodium 137, potassium 4.4, chloride 101, bicarbonate 28, BUN 9, creatinine 0.65. Accu-Cheks range 191 to 208. Wound VAC is in place with still persistent flush. ASSESSMENT: 1. Persistent stage IV decubitus with possible recurrent osteomyelitis, on antibiotics. Awaiting Wound Care consult with Dr. Cortes. 2. Placement difficulty with sister refusing to find acceptable [facility] placement. PLAN: Discussed with Case Management about transfer to a [facility]. Await Wound Care consult. Continue IV antibiotics. Job ID: [id number]
[2018-05-29] MEDS: Rosuvastatin 10 MG TAB PO SCH (21:03)
[2018-05-29] MEDS: Tamsulosin HCl 0.4 MG CAP PO SCH (21:03)
[2018-05-30] MEDS: Levothyroxine Sodium 100 MCG TAB PO SCH (05:22)
[2018-05-30] MEDS: Valproate Sodium 250 mg/5 ml UD Cup PO SCH ×3 (05:23→21:07)
[2018-05-30] MEDS: Folic Acid 1 MG TAB PO SCH (09:05)
[2018-05-30] MEDS: Saccharomyces boulardii 250 MG CAP PO SCH (09:06)
[2018-05-30] MEDS: metroNIDAZOLE 500 MG TAB PO SCH ×3 (09:06→21:07)
[2018-05-30] MEDS: Gabapentin 300 MG CAP PO SCH ×3 (09:06→21:07)
[2018-05-30] MEDS: Finasteride 5 MG TAB PO SCH (09:06)
[2018-05-30] MEDS: Fish Oil 1,000 MG CAP PO SCH ×2 (09:06→21:07)
[2018-05-30] MEDS: Potassium Chloride 20 MEQ TAB PO SCH ×2 (09:06→17:53)
[2018-05-30] MEDS: Naproxen 500 MG TAB PO SCH ×2 (09:06→21:08)
[2018-05-30] MEDS: Alogliptin 25 MG TAB PO SCH (09:06)
[2018-05-30] MEDS: Vancomycin HCl 1 GM in Sodium Chloride 0.9% 250 ML 250 ML IVPB SCH ×2 (09:07→21:08)
[2018-05-30] MEDS: Famotidine 20 MG TAB PO SCH (09:08)
[2018-05-30] MEDS: Lantus 1000 UNITS/10 ML VIAL SC SCH (09:08)
[2018-05-30] MEDS: HumaLOG 300 UNITS/3 ML VIAL SC PRN ×2 (12:36→17:53)
[2018-05-30] MEDS: cefTRIAXone\\ROCEPHIN 1 GM in Sodium Chloride 0.9% 100 ML IVPB SCH (14:36)
[2018-05-30] MEDS: Tamsulosin HCl 0.4 MG CAP PO SCH (21:07)
[2018-05-30] MEDS: Rosuvastatin 10 MG TAB PO SCH (21:08)
--- NOTE | 2018-05-30 21:19 | PRG ---
DATE OF SERVICE: 05/30/2018 SUBJECTIVE: Patient is awake and alert. No distress. OBJECTIVE: VITAL SIGNS: Temperature is 98, pulse is 84, respiratory rate is 20, O2 sats 91% on room air, and blood pressure 147/88. LUNGS: Clear. CARDIAC EXAMINATION: Showed regular rhythm. ABDOMEN: Soft and nontender. SKIN/EXTREMITIES: No edema, clubbing, or cyanosis. NEUROLOGICAL: Intact. LABORATORY: Urine culture shows presumptive Pseudomonas 50,000 to 75,000, Cortes. Vancomycin trough is 99. ASSESSMENT: 1. Stable stage IV decubitus, possible underlying osteomyelitis, on IV vanc and Rocephin, awaiting wound care consult. 2. Cognitive deficits, stable. 3. Partial paraplegia, stable. PLAN: 1. Continue vanc, Rocephin, and Flagyl. 2. Continue wound VAC. 3. Await wound care consult. 4. Have cyanide case hardener begin to make plans for discharge. Job ID: [id number]
[2018-05-31] MEDS: HumaLOG 300 UNITS/3 ML VIAL SC PRN ×3 (06:03→17:06)
[2018-05-31] MEDS: Valproate Sodium 250 mg/5 ml UD Cup PO SCH ×3 (06:04→21:19)
[2018-05-31] MEDS: Levothyroxine Sodium 100 MCG TAB PO SCH (06:04)
[2018-05-31] MEDS: Folic Acid 1 MG TAB PO SCH (08:45)
[2018-05-31] MEDS: Fish Oil 1,000 MG CAP PO SCH ×2 (08:45→21:20)
[2018-05-31] MEDS: Famotidine 20 MG TAB PO SCH (08:46)
[2018-05-31] MEDS: Gabapentin 300 MG CAP PO SCH ×3 (08:46→21:19)
[2018-05-31] MEDS: Potassium Chloride 20 MEQ TAB PO SCH ×2 (08:46→17:06)
[2018-05-31] MEDS: metroNIDAZOLE 500 MG TAB PO SCH ×3 (08:46→21:19)
[2018-05-31] MEDS: Finasteride 5 MG TAB PO SCH (08:46)
[2018-05-31] MEDS: Alogliptin 25 MG TAB PO SCH (08:46)
[2018-05-31] MEDS: Naproxen 500 MG TAB PO SCH ×2 (08:46→21:20)
[2018-05-31] MEDS: Lantus 1000 UNITS/10 ML VIAL SC SCH (08:46)
[2018-05-31] MEDS: Saccharomyces boulardii 250 MG CAP PO SCH (08:46)
[2018-05-31] MEDS: Vancomycin HCl 1 GM in Sodium Chloride 0.9% 250 ML 250 ML IVPB SCH ×2 (08:47→21:13)
[2018-05-31] MEDS: cefTRIAXone\\ROCEPHIN 1 GM in Sodium Chloride 0.9% 100 ML IVPB SCH (14:59)
--- NOTE | 2018-05-31 19:02 | PRG ---
DATE OF SERVICE: 05/31/2018 SUBJECTIVE: The patient is sitting up in the bed, feels well, eating, in no distress, and in fact, laughing. Still very confused. OBJECTIVE: VITAL SIGNS: Showed temperature 98.3, pulse 85, respirations 18, O2 sats 97% on room air, blood pressure 127/76. ABDOMEN: Soft and nontender. SKIN AND EXTREMITIES: Show wound VAC in place over the left ischium, healing well. Cortes catheter in place. Urine culture from the catheter showing Pseudomonas in 50,000 to 75,000. Sensitivity is pending. ASSESSMENT: 1. Colonized Cortes catheter with no signs of infection. We will replace catheter next week and await results of cultures. 2. Stage 2 decubitus, on wound VAC therapy with possible underlying persistent osteomyelitis, now on vancomycin, Rocephin, and Flagyl until seen by Wound Care on Monday. 3. Diabetes, with improved control with Accu-Cheks less than 200 usually. PLAN: Continue aggressive sliding scale. Increase glargine to 37 units daily. Continue wound VAC. Await results of urine culture. Change out Cortes on June 09. Job ID: [id number]
[2018-05-31] MEDS: Rosuvastatin 10 MG TAB PO SCH (21:20)
[2018-05-31] MEDS: Tamsulosin HCl 0.4 MG CAP PO SCH (21:20)
[2018-06-01] MEDS: Valproate Sodium 250 mg/5 ml UD Cup PO SCH ×3 (05:15→21:00)
[2018-06-01] MEDS: Levothyroxine Sodium 100 MCG TAB PO SCH (05:15)
[2018-06-01] MEDS: Famotidine 20 MG TAB PO SCH (08:50)
[2018-06-01] MEDS: Lantus 1000 UNITS/10 ML VIAL SC SCH (08:50)
[2018-06-01] MEDS: Saccharomyces boulardii 250 MG CAP PO SCH (08:51)
[2018-06-01] MEDS: Finasteride 5 MG TAB PO SCH (08:51)
[2018-06-01] MEDS: Vancomycin HCl 1 GM in Sodium Chloride 0.9% 250 ML 250 ML IVPB SCH ×2 (08:51→21:01)
[2018-06-01] MEDS: Alogliptin 25 MG TAB PO SCH (08:52)
[2018-06-01] MEDS: Fish Oil 1,000 MG CAP PO SCH ×2 (08:52→21:01)
[2018-06-01] MEDS: Naproxen 500 MG TAB PO SCH ×2 (08:52→21:00)
[2018-06-01] MEDS: Potassium Chloride 20 MEQ TAB PO SCH ×2 (08:52→16:43)
[2018-06-01] MEDS: Folic Acid 1 MG TAB PO SCH (08:52)
[2018-06-01] MEDS: metroNIDAZOLE 500 MG TAB PO SCH ×3 (08:52→21:00)
[2018-06-01] MEDS: Gabapentin 300 MG CAP PO SCH ×3 (08:52→21:01)
[2018-06-01] MEDS: HumaLOG 300 UNITS/3 ML VIAL SC PRN ×3 (11:32→20:59)
[2018-06-01] MEDS: cefTRIAXone\\ROCEPHIN 1 GM in Sodium Chloride 0.9% 100 ML IVPB SCH (15:07)
[2018-06-01] MEDS: Tamsulosin HCl 0.4 MG CAP PO SCH (21:00)
[2018-06-01] MEDS: Rosuvastatin 10 MG TAB PO SCH (21:00)
[2018-06-01 21:08] LABS: Vancomycin, Trough 15.9 ug/mL
[2018-06-02] MEDS: Levothyroxine Sodium 100 MCG TAB PO SCH (05:07)
[2018-06-02] MEDS: Valproate Sodium 250 mg/5 ml UD Cup PO SCH ×3 (05:07→21:20)
[2018-06-02] MEDS: Lantus 1000 UNITS/10 ML VIAL SC SCH (10:13)
[2018-06-02] MEDS: Vancomycin HCl 1 GM in Sodium Chloride 0.9% 250 ML 250 ML IVPB SCH ×2 (10:18→21:20)
[2018-06-02] MEDS: Saccharomyces boulardii 250 MG CAP PO SCH (10:24)
[2018-06-02] MEDS: metroNIDAZOLE 500 MG TAB PO SCH ×3 (10:24→21:26)
[2018-06-02] MEDS: Famotidine 20 MG TAB PO SCH (10:24)
[2018-06-02] MEDS: Alogliptin 25 MG TAB PO SCH (10:25)
[2018-06-02] MEDS: Folic Acid 1 MG TAB PO SCH (10:25)
[2018-06-02] MEDS: Fish Oil 1,000 MG CAP PO SCH ×2 (10:25→21:21)
[2018-06-02] MEDS: Gabapentin 300 MG CAP PO SCH ×3 (10:25→21:21)
[2018-06-02] MEDS: Potassium Chloride 20 MEQ TAB PO SCH ×2 (10:25→17:50)
[2018-06-02] MEDS: Finasteride 5 MG TAB PO SCH (10:25)
[2018-06-02] MEDS: Naproxen 500 MG TAB PO SCH ×2 (10:25→21:21)
[2018-06-02] MEDS: cefTRIAXone\\ROCEPHIN 1 GM in Sodium Chloride 0.9% 100 ML IVPB SCH (14:44)
--- NOTE | 2018-06-02 16:13 | PRG ---
DATE OF SERVICE: 06/02/2018 SUBJECTIVE: Mr. Haro is doing the same. He is sleeping, but arousable. Denies any complaints. No family at bedside. Discussed with nursing. OBJECTIVE: VITAL SIGNS: He is afebrile. Heart rate 79, respirations 21, oxygen saturation 94% on room air, blood pressure 114/71. CARDIOVASCULAR: S1 and S2 plus. RESPIRATORY: Normal vesicular breath sounds. ABDOMEN: Soft, nontender. Bowel sounds heard in all quadrants. EXTREMITIES: Without cyanosis or clubbing. Peripheral pulses are palpable. CENTRAL NERVOUS SYSTEM: Grossly nonfocal. IMPRESSION: 1. Osteomyelitis, ischial area. 2. Seizure disorder. 3. Hypertension. 4. Hypothyroidism. 5. Dyslipidemia. 6. Benign prostatic hypertrophy. PLAN: 1. Continue current medications. 2. Nutritional support. 3. Seizure precautions. 4. DVT and stress ulcer prophylaxis. 5. Decubitus precautions. 6. Wound care with wound VAC. 7. Routine laboratory values. Job ID: [id number]
[2018-06-02] MEDS: Tamsulosin HCl 0.4 MG CAP PO SCH (21:20)
[2018-06-02] MEDS: Rosuvastatin 10 MG TAB PO SCH (21:21)
[2018-06-03] MEDS: Valproate Sodium 250 mg/5 ml UD Cup PO SCH ×3 (06:26→21:43)
[2018-06-03] MEDS: Levothyroxine Sodium 100 MCG TAB PO SCH (06:26)
[2018-06-03] MEDS: Naproxen 500 MG TAB PO SCH ×2 (08:50→21:43)
[2018-06-03] MEDS: Finasteride 5 MG TAB PO SCH (08:50)
[2018-06-03] MEDS: Alogliptin 25 MG TAB PO SCH (08:50)
[2018-06-03] MEDS: Fish Oil 1,000 MG CAP PO SCH ×2 (08:50→21:45)
[2018-06-03] MEDS: Folic Acid 1 MG TAB PO SCH (08:50)
[2018-06-03] MEDS: Gabapentin 300 MG CAP PO SCH ×3 (08:50→21:44)
[2018-06-03] MEDS: Saccharomyces boulardii 250 MG CAP PO SCH (08:50)
[2018-06-03] MEDS: Potassium Chloride 20 MEQ TAB PO SCH ×2 (08:50→17:07)
[2018-06-03] MEDS: Famotidine 20 MG TAB PO SCH (08:51)
[2018-06-03] MEDS: Vancomycin HCl 1 GM in Sodium Chloride 0.9% 250 ML 250 ML IVPB SCH ×2 (08:51→21:43)
[2018-06-03] MEDS: Lantus 1000 UNITS/10 ML VIAL SC SCH (08:54)
[2018-06-03] MEDS: metroNIDAZOLE 500 MG TAB PO SCH ×3 (08:58→21:44)
[2018-06-03] MEDS: cefTRIAXone\\ROCEPHIN 1 GM in Sodium Chloride 0.9% 100 ML IVPB SCH (14:46)
--- NOTE | 2018-06-03 15:37 | PRG ---
DATE OF SERVICE: 06/03/2018 SUBJECTIVE: Mr. Haro is doing the same. He is stating that he feels like his left leg is swollen. Examined his legs with the nurse and there is no difference between the two legs. I do not see any pitting edema. It is nontender to palpation. OBJECTIVE: VITAL SIGNS: He is afebrile. Heart rate 87, respirations are 25, oxygen saturation 94% on room air, and blood pressure 102/64. CARDIOVASCULAR SYSTEM: S1 and S2 plus. RESPIRATORY SYSTEM: Normal vesicular breath sounds. ABDOMEN: Soft, nontender. Bowel sounds heard in all quadrants. EXTREMITIES: Without cyanosis or clubbing. CENTRAL NERVOUS SYSTEM: Awake and responsive. Grossly nonfocal. IMPRESSION: 1. Osteomyelitis, ischial area with stage 2 to 3 decubitus, has a wound VAC. 2. Seizure disorder. 3. Hypertension. 4. Hypothyroidism. 5. Dyslipidemia. 6. BPH. PLAN: 1. Continue current medications. 2. Wound VAC. 3. Nutritional support. 4. DVT and stress ulcer prophylaxis. 5. Decubitus precautions. 6. Seizure precaution. 7. Routine laboratory values. 8. Therapy. Job ID: [id number]
[2018-06-03] MEDS: HumaLOG 300 UNITS/3 ML VIAL SC PRN (17:07)
[2018-06-03] MEDS: Rosuvastatin 10 MG TAB PO SCH (21:44)
[2018-06-03] MEDS: Tamsulosin HCl 0.4 MG CAP PO SCH (21:44)
[2018-06-04] MEDS: Valproate Sodium 250 mg/5 ml UD Cup PO SCH ×3 (06:20→22:11)
[2018-06-04] MEDS: Levothyroxine Sodium 100 MCG TAB PO SCH (06:20)
[2018-06-04] MEDS: Lantus 1000 UNITS/10 ML VIAL SC SCH (08:29)
[2018-06-04] MEDS: metroNIDAZOLE 500 MG TAB PO SCH ×2 (08:31→15:30)
[2018-06-04] MEDS: Fish Oil 1,000 MG CAP PO SCH ×2 (08:31→22:12)
[2018-06-04] MEDS: Finasteride 5 MG TAB PO SCH (08:31)
[2018-06-04] MEDS: Potassium Chloride 20 MEQ TAB PO SCH ×2 (08:31→16:54)
[2018-06-04] MEDS: Folic Acid 1 MG TAB PO SCH (08:31)
[2018-06-04] MEDS: Saccharomyces boulardii 250 MG CAP PO SCH (08:31)
[2018-06-04] MEDS: Alogliptin 25 MG TAB PO SCH (08:31)
[2018-06-04] MEDS: Gabapentin 300 MG CAP PO SCH ×3 (08:31→22:11)
[2018-06-04] MEDS: Naproxen 500 MG TAB PO SCH ×2 (08:32→22:12)
[2018-06-04] MEDS: Famotidine 20 MG TAB PO SCH (08:32)
[2018-06-04] MEDS: Vancomycin HCl 1 GM in Sodium Chloride 0.9% 250 ML 250 ML IVPB SCH ×2 (08:33→19:43)
[2018-06-04 13:16] VITALS: BMI 24.5
[2018-06-04] MEDS: cefTRIAXone\\ROCEPHIN 1 GM in Sodium Chloride 0.9% 100 ML IVPB SCH (15:32)
--- NOTE | 2018-06-04 18:26 | PRG ---
DATE OF SERVICE: 06/04/2018 SUBJECTIVE: The patient is lying in the bed, resting. No complaints. He has been to see the wound doctor today and secondhand report states that he is only returning on wound VAC or Santyl and wound physician will talk to me tomorrow, did not mention any antibiotics and these will not be restarted. OBJECTIVE: VITAL SIGNS: His temperature is 98, pulse is 79, respirations 20, O2 sats 98% on room air, blood pressure is 128/76. LUNGS: Clear. CARDIAC: Showed regular rhythm. ABDOMEN: Soft and nontender. Cortes catheter is in place. ASSESSMENT: 1. Stage 4 decubitus with questionable osteomyelitis, treated for 1 month, improving according to wound care. 2. Urinary tract infection, sensitive to Cipro and we will start. 3. Cognitive deficits, stable. 4. Partial paraplegia, stable. PLAN: Discontinue IV antibiotics. Start Cipro 250 twice daily. Continue on wound VAC until discussed with wound care physician as he may discontinue this. Job ID: [id number]
[2018-06-04] MEDS: Rosuvastatin 10 MG TAB PO SCH (22:11)
[2018-06-04] MEDS: Tamsulosin HCl 0.4 MG CAP PO SCH (22:11)
[2018-06-04] MEDS: Cipro 250 MG TAB PO SCH (22:12)
[2018-06-04] MEDS: HumaLOG 300 UNITS/3 ML VIAL SC PRN (22:29)
[2018-06-05] MEDS: Cipro 250 MG TAB PO SCH ×2 (06:11→21:13)
[2018-06-05] MEDS: Valproate Sodium 250 mg/5 ml UD Cup PO SCH ×3 (06:11→21:19)
[2018-06-05] MEDS: Levothyroxine Sodium 100 MCG TAB PO SCH (06:11)
[2018-06-05] MEDS: Potassium Chloride 20 MEQ TAB PO SCH ×2 (08:45→17:18)
[2018-06-05] MEDS: Alogliptin 25 MG TAB PO SCH (08:45)
[2018-06-05] MEDS: Fish Oil 1,000 MG CAP PO SCH ×2 (08:45→21:46)
[2018-06-05] MEDS: Folic Acid 1 MG TAB PO SCH (08:45)
[2018-06-05] MEDS: Saccharomyces boulardii 250 MG CAP PO SCH (08:45)
[2018-06-05] MEDS: Famotidine 20 MG TAB PO SCH (08:45)
[2018-06-05] MEDS: Gabapentin 300 MG CAP PO SCH ×3 (08:46→21:13)
[2018-06-05] MEDS: Lantus 1000 UNITS/10 ML VIAL SC SCH (08:46)
[2018-06-05] MEDS: Naproxen 500 MG TAB PO SCH ×2 (08:46→21:13)
[2018-06-05] MEDS: Finasteride 5 MG TAB PO SCH (08:46)
[2018-06-05] MEDS ORDERED: Collagenase 250 UNITS/GM Ointment 30 GM TUBE TOP SCH (11:15)
[2018-06-05] MEDS: HumaLOG 300 UNITS/3 ML VIAL SC PRN ×2 (12:07→21:13)
[2018-06-05] MEDS: Tamsulosin HCl 0.4 MG CAP PO SCH (21:13)
[2018-06-05] MEDS: Rosuvastatin 10 MG TAB PO SCH (21:13)
[2018-06-06] MEDS: Levothyroxine Sodium 100 MCG TAB PO SCH (05:47)
[2018-06-06] MEDS: Valproate Sodium 250 mg/5 ml UD Cup PO SCH ×3 (05:47→21:18)
[2018-06-06] MEDS: Cipro 250 MG TAB PO SCH ×2 (05:47→21:19)
[2018-06-06] MEDS: Potassium Chloride 20 MEQ TAB PO SCH ×2 (08:59→17:15)
[2018-06-06] MEDS: Finasteride 5 MG TAB PO SCH (09:06)
[2018-06-06] MEDS: Saccharomyces boulardii 250 MG CAP PO SCH (09:06)
[2018-06-06] MEDS: Famotidine 20 MG TAB PO SCH (09:06)
[2018-06-06] MEDS: Fish Oil 1,000 MG CAP PO SCH ×2 (09:06→21:18)
[2018-06-06] MEDS: Gabapentin 300 MG CAP PO SCH ×3 (09:06→21:19)
[2018-06-06] MEDS: Alogliptin 25 MG TAB PO SCH (09:06)
[2018-06-06] MEDS: Naproxen 500 MG TAB PO SCH ×2 (09:06→21:19)
[2018-06-06] MEDS: Folic Acid 1 MG TAB PO SCH (09:06)
[2018-06-06] MEDS: Lantus 1000 UNITS/10 ML VIAL SC SCH (09:07)
[2018-06-06] MEDS: HumaLOG 300 UNITS/3 ML VIAL SC PRN ×2 (11:25→17:15)
[2018-06-06] MEDS: Loratadine 10 MG TAB PO PRN (14:37)
[2018-06-06 20:39] LABS: Lactic Acid 1.3 mmol/L (0.5-2.2)
[2018-06-06 20:43] LABS: ALT (SGPT) 7 U/L (8-55); AST (SGOT) 11 U/L (5-34); Albumin 3.1 g/dL (3.4-4.8); Alkaline Phosphatase 69 U/L (40-150); Anion Gap 14 mmol/L (10-20); BUN (Urea Nitrogen) 14 mg/dL (8.4-25.7); Bilirubin, Total 0.2 mg/dL (0.2-1.2); Calc. Creatinine Clearance 123 mL/min (70-130); Calcium 9.4 mg/dL (7.8-10.44); Carbon Dioxide 26 mmol/L (23-31); Chloride 102 mmol/L (98-107); Estimated GFR-MDRD Greater than 90; Globulin 3.2 g/dL (2.4-3.5); Glucose 186 mg/dL (80-115); Potassium 4.6 mmol/L (3.5-5.1); Protein, Total 6.3 g/dL (5.8-8.1); Sodium 137 mmol/L (136-145)
[2018-06-06 21:00] LABS: Band 3 % (5-11); Eosinophils 1 % (0-10); Hemoglobin 11.5 g/dL (14.0-18.0); Lymphocytes 32 % (21-51); MDiff Complete? YES; Mean Corpuscular HGB CONC 32.3 g/dL (32.0-36.0); Mean Corpuscular Hemoglobin 25.5 pg (27.0-31.0); Mean Platelet Volume 6.2 fL (7.4-10.4); Monocytes 18 % (0-10); Neutrophil 46 % (42-75); Platelet Count 133 thou/uL (130-400); Platelet Morphology Comment Appears Adequate; RBC Distribution Width 15.5 % (11.5-14.5); RBC Morphology Normal; Red Blood Cell (RBC) Count 4.49 mill/uL (4.70-6.10); White Blood Cell (WBC) Count 11.2 thou/uL (4.8-10.8)
[2018-06-06] MEDS: Rosuvastatin 10 MG TAB PO SCH (21:19)
[2018-06-06] MEDS: Tamsulosin HCl 0.4 MG CAP PO SCH (21:19)
[2018-06-07 00:15] VITALS: TEMP 97.4
[2018-06-07] MEDS: Valproate Sodium 250 mg/5 ml UD Cup PO SCH (05:55)
[2018-06-07] MEDS: Cipro 250 MG TAB PO SCH (05:55)
[2018-06-07] MEDS: Levothyroxine Sodium 100 MCG TAB PO SCH (05:55)
[2018-06-07 07:00] LABS: Valproic Acid (Depakene) 52.5 ug/mL (50.0-100.0)
[2018-06-07 07:44] VITALS: BP 135/95
[2018-06-07] MEDS: Alogliptin 25 MG TAB PO SCH (09:10)
[2018-06-07] MEDS: Folic Acid 1 MG TAB PO SCH (09:10)
[2018-06-07] MEDS: Fish Oil 1,000 MG CAP PO SCH (09:10)
[2018-06-07] MEDS: Finasteride 5 MG TAB PO SCH (09:10)
[2018-06-07] MEDS: Naproxen 500 MG TAB PO SCH (09:10)
[2018-06-07] MEDS: Loratadine 10 MG TAB PO PRN (09:10)
[2018-06-07] MEDS: Saccharomyces boulardii 250 MG CAP PO SCH (09:10)
[2018-06-07] MEDS: Gabapentin 300 MG CAP PO SCH (09:10)
[2018-06-07] MEDS: Potassium Chloride 20 MEQ TAB PO SCH (09:10)
[2018-06-07] MEDS: Lantus 1000 UNITS/10 ML VIAL SC SCH (09:11)
[2018-06-07] MEDS: Famotidine 20 MG TAB PO SCH (09:11)
== END 2018-06-07 13:17 | DRG 593 ==
LOC: NAV ACUTE 18:52 → UNDODISIN 05-23 10:50
PROVIDERS: ADMIT Internal Medicine; ATTEND Internal Medicine
DX: L89.154 Pressure ulcer of sacral region, stage 4 (principal); M86.8X8 Other osteomyelitis, other site; N39.0 Urinary tract infection, site not specified; G82.22 Paraplegia, incomplete; L89.303 Pressure ulcer of unspecified buttock, stage 3; L89.302 Pressure ulcer of unspecified buttock, stage 2; G40.909 Epilepsy, unspecified, not intractable, without status epilepticus; E03.9 Hypothyroidism, unspecified; R41.89 Other symptoms and signs involving cognitive functions and awareness; R32 Unspecified urinary incontinence; F79 Unspecified intellectual disabilities; E11.65 Type 2 diabetes mellitus with hyperglycemia; R53.81 Other malaise; E78.5 Hyperlipidemia, unspecified; N40.1 Benign prostatic hyperplasia with lower urinary tract symptoms; R33.8 Other retention of urine; E86.0 Dehydration; R79.89 Other specified abnormal findings of blood chemistry; Z88.8 Allergy status to other drugs, medicaments and biological substances; Z79.2 Long term (current) use of antibiotics; Z79.4 Long term (current) use of insulin; Z79.899 Other long term (current) drug therapy; Z87.440 Personal history of urinary (tract) infections
CPT/HCPCS: 36415; 36416; 80053; 80164; 80202; 81001; 81003; 83605; 84443; 85025; 85652; 86140; 87070; 87077; 87086; 87186; 87205; 87324; 87449; 97602; J0696; J1815; J3370; J7050